=== PATIENT | female | born 1960 | race Caucasian/White ===

== ENCOUNTER → 2017-11-13 15:34 | Outpatient (CLI) | payer BC, SELFPAY ==
[2017-11-13 17:40] LABS: Alanine Aminotransferase 31 IU/L (9-52); Albumin 4.6 g/dL (3.5-5.0); Albumin Globulin Ratio 1.5 (1.0-2.8); Alkaline Phosphatase 40 U/L (38-126); Aspartate Aminotransferase 28 IU/L (14-36); BUN Creatinine Ratio 21.4 (6-22); Bilirubin Total 0.5 mg/dL (0.2-1.3); Blood Urea Nitrogen 15 mg/dL (7-17); Calcium 9.1 mg/dL (8.4-10.2); Carbon Dioxide 26 mmol/L (22-32); Chloride 104 mmol/L (98-107); Cholesterol 228 mg/dL (140-199); Estimated Glomerular Filt Rate > 60.0 mL/min (>60); Globulin 3.1 g/dL (1.7-4.1); Glucose 83 mg/dL (70-100); HDL Cholesterol 46 mg/dL (40-60); LDL Cholesterol Calculated 127 mg/dL (<100); Sodium 140 mmol/L (137-145); Total Protein 7.7 g/dL (6.3-8.2); Triglycerides 274 mg/dL (35-150)
[2017-11-13 17:52] LABS: HEMOLYSIS 53 (0-50); Potassium 4.2 mmol/L (3.4-5.1)
== END ==
PROVIDERS: Family Provider Family Medicine; PCP Family Medicine; Visit Provider Internal Medicine
DX: E78.00 Pure hypercholesterolemia, unspecified (principal); I10 Essential (primary) hypertension
CPT/HCPCS: 36415; 80053; 80061

== ENCOUNTER 2018-04-27 16:45 | Outpatient (RCR) | payer BC, SELFPAY ==
--- NOTE | 2017-12-05 15:21 | PT.OIE ---
Current Diagnoses Other chronic pain (12/05/17) Cervicalgia (12/05/17) Low back pain (12/05/17) Pain in thoracic spine (12/05/17) Abnormal posture (12/05/17) Weakness (12/05/17) Past Medical History (Last Reviewed 12/05/17 @ 15:12 by Michelle Davis, PT) Depression (Chronic) Hypertension (Chronic 2015) Abnormal Pap smear of cervix (Resolved ~1989) 2 para 2 (Resolved) HPV (human papilloma virus) infection (Resolved ~1989) Hemorrhoids (Resolved 1994) Menopause (Resolved 2012) Past Surgical History (Last Updated 11/13/17 @ 09:52 by Yuliet Mijares) Anesthesia (Resolved) Status post colonoscopy (Resolved) Status post tonsillectomy and adenoidectomy (Resolved) Provider Visit Care Team Role Provider Type Maricarmen Ramos DO Family Provider Physician Primary Care Provider Specialty: Family Practice Address: [address] [place] [address] Email: [email or web address] Francisco Davis MD Attending Provider Physician Specialty: Internal Medicine Address: [address] [place] [address], [id number] Email: Physical Therapy Initial Evaluation PT-OP-A Visit Information Start: 12/05/17 08:49 Freq: Status: Active Protocol: Document 12/05/17 09:50 [facility] (Rec: 12/05/17 15:21 [facility] [id number]) Out-Patient Physical Therapy Visit Information Visit Information Visit Type Initial Evaluation Visit Note 50 visits per year Visit Start Time 09:50 Visit Stop Time 10:45 Total Visit Minutes 55 Visit Number 1 Number of DROP HAMMER PILE DRIVER OPERATOR Visits 0 PT-OP-B Current Condition Start: 12/05/17 08:49 Freq: Status: Active Protocol: Document 12/05/17 09:50 [facility] (Rec: 12/05/17 15:21 [facility] [id number]) Current Condition History of Current Condition Onset Date May-June 2017 Current Complaints L upper lumbar through thoracic to neck L>R History of Current Condition Pt c/o mostly L lower thoracic pain that she says starts at L upper lumbar and radiates up to L cervical region, and can be painful on both sides. Reports it is mostly more annoying that painful, except when rolling. Pt reports she hears a clicking in her neck also. She has not tried icing for pain relief. Pt reports she walks daily, but has avoided distance w/walks d/t pain and puts of her daily activities. 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 (Rec: 12/05/17 15:21 [facility] [id number]) Patient Questionnaires Oswestry Low Back Index Oswestry Score 20/50 Oswestry Impairment 40 to 59% Impaired (Score 40- 59) OP-PT Pain Assessment Location Left Back Pain Location Details upper lumbar, Thoracic & cervical L>R Intensity 3 Scale Used Numeric (1 - 10) Description Sharp Description- Other 3/10 constant w/up to 7/10 at times, like when rolling in bed Frequency Constant Pain Aggravating Factors Lifting Other Pain Aggravating Factors twisting, in/out of bed, rolling in bed, in/out car Pain Alleviating Factors Heat Medication PT-OP-F Manual Assessment Start: 12/05/17 08:49 Freq: Status: Active Protocol: Document 12/05/17 09:50 [facility] (Rec: 12/05/17 10:36 [facility] [id number]) Manual Assessments Joint Mobility Assessment Joint Mobility Assessment Equal greater trochanters & iliac crest height. PT-OP-G Mobility & Gait Start: 12/05/17 08:49 Freq: Status: Active Protocol: Document 12/05/17 09:50 [facility] (Rec: 12/05/17 10:36 [facility] [id number]) OP Gait Assessment Comments Gait Comments Dec B hip ext and dec UE arm swing. Overall dec post depression & ant elevation of pelvis. PT-OP-J Posture/Palpation/Skin Start: 12/05/17 08:49 Freq: Status: Active Protocol: Document 12/05/17 09:50 [facility] (Rec: 12/05/17 10:36 [facility] [id number]) Posture Evaluation Agustin Postural Classification System Agustin Postural Classifications Anterior/Posterior Vertebral Compression Test 2 Elbow Flexion Test 0 Lumbar Protective Mechanism Left AP 0 Lumbar Protective Mechanism Right AP 1 Lumbar Protective Mechanism Left PA 0 Lumbar Protective Mechanism Right PA 1 Leg Swing Left Limited Leg Swing Right Limited PT-OP-K Range of Motion Start: 12/05/17 08:49 Freq: Status: Active Protocol: Document 12/05/17 09:50 [facility] (Rec: 12/05/17 10:36 [facility] [id number]) Cervical Spine Range of Motion Cervical Spine Active Degrees Testing Position Sitting Flexion 63 Extension 40 Rotation Left 50 Rotation Right 44 Lateral Flexion Left 22 Lateral Flexion Right 18 Comments pain w/ flex & ipsilateral pain w/SB Lumbar Spine Range of Motion Lumbar Spine Active Degrees Flexion 75 Extension 12 Rotation Left 23 Rotation Right 32 Lateral Flexion Left 20 Lateral Flexion Right 25 Comments pain w/ ext; pain w/ L side bend PT-OP-L Special Tests Start: 12/05/17 08:49 Freq: Status: Active Protocol: Document 12/05/17 09:50 [facility] (Rec: 12/05/17 10:36 [facility] [id number]) Special Tests Cervical Spine Special Tests Vertebral Artery Test Results neg B Spurling's Test Test Results positive Lumbar Spine Special Tests Straight Leg Raise Test Results positive B with pain into L thoracic region Slump Test Results neg B PT-OP-M Strength Start: 12/05/17 08:49 Freq: Status: Active Protocol: Document 12/05/17 09:50 [facility] (Rec: 12/05/17 10:36 [facility] [id number]) Shoulder Strength Shoulder Manual Muscle Testing Right Flexion 5 Normal Extension 5 Normal Abduction (C5) 5 Normal External Rotation 5 Normal Internal Rotation 5 Normal Horizontal Abduction 5 Normal Horizontal Adduction 5 Normal Left Flexion 5 Normal Extension 5 Normal Abduction (C5) 4+ Good+ External Rotation 5 Normal Internal Rotation 5 Normal Horizontal Abduction 4- Good- Horizontal Adduction 4- Good- Comments pain L abd & Hadd & HABD Hip Strength Hip Manual Muscle Testing Right Flexion (L2) 5 Normal Abduction 4+ Good+ External Rotation 5 Normal Internal Rotation 4 Good Comments WNL Knee strength Left Flexion (L2) 4 Good External Rotation 4 Good Internal Rotation 3 Fair PT-OP-Q Treatments Start: 12/05/17 08:49 Freq: Status: Active Protocol: Document 12/05/17 09:50 [facility] (Rec: 12/05/17 10:36 [facility] [id number]) Therapeutic Exercises Supine Exercises 2 Supine Exercise Name Pelvic tilts 1 Supine Exercise Name LTR Side bilateral PT-OP-R Modalities Start: 12/05/17 08:49 Freq: Status: Active Protocol: Document 12/05/17 09:50 [facility] (Rec: 12/05/17 10:36 [facility] [id number]) Hot Pack/Cold Pack Treatment Hot Pack Location lumbar/thoracic & cervical Patient Position Sitting Treatment Duration (minutes) 15 PT-OP-T Assessment and Plan Start: 12/05/17 08:49 Freq: Status: Active Protocol: Document 12/05/17 09:50 [facility] (Rec: 12/05/17 15:21 [facility] [id number]) Physical Therapy Assessment Rehab Potential Rehabilitation Potential Good Evaluation Complexity Number of Personal Factors/Comorbidities 3 or More Number of Body Systems Impaired 4 or More Clinical Presentation at Evaluation Evolving Impairments Impairments Balance Functional Activities Gait Pain Posture ROM Soft Tissue Mobility Strength Goals Four Impairment activities Short Term Goal (STG) Pt will demonstrate good lifting mechanics & will have an ergonomically correct desk set up. STG Duration 01/05/18 Patrol Driver Goal (LTG) Pt will be able to garden, lift and do long walks without pain. LTG Duration 02/04/18 Three Impairment bed mobility Senior Care Goal (LTG) Pt will be able to do all bed mobility without pain LTG Duration 02/04/18 Two Impairment core stability/strength Short Term Goal (STG) Pt will be indep with HEP STG Duration 01/05/18 Senior Care Goal (LTG) 5/5 LE strength, EFT, VCT & LPM to demonstrate improved stability and to allow pt to return to normal activities LTG Duration 02/04/18 One Impairment pain Short Term Goal (STG) Constant pain to 1/10 STG Duration 01/05/18 Patrol Driver Goal (LTG) worst pain to 2/10 LTG Duration 02/04/18 Assessment Summary Assessment Pt presents with pain radiating from upper L lumbar region to L lower cervical region with primary pain in L lower thoracic around T10. Pt has very poor posture & impaired gait & rolling techniques. Physical Therapy Plan Frequency and Duration Frequency of Treatment 2x/Week Duration of Treatment 2 months Plan of Care Start Date 12/05/17 Plan of Care End Date 02/04/18 Therapeutic Interventions Therapeutic Interventions Aquatic Therapy Balance Training Gait Training Home Exercise Program Joint Mobilizations Manual Therapy Soft Tissue Mobilization Taping Therapeutic Exercises Modalities Cold Pack/Ice Massage Electric Stimulation Hot Packs Infrared Therapy Traction- Mechanical Ultrasound Next Visit Focus/Plan Next Note Type Treatment Note Next Visit Plan Supine core exercises, cervical stretches, cat/camel, paresh pose, pec stretch, STM to lower L thoracic
--- NOTE | 2017-12-05 15:21 | PT.OPPOC ---
Current Diagnoses Other chronic pain (12/05/17) Cervicalgia (12/05/17) Low back pain (12/05/17) Pain in thoracic spine (12/05/17) Abnormal posture (12/05/17) Weakness (12/05/17) Provider Visit Care Team Role Provider Type Maricarmen Ramos DO Family Provider Physician Primary Care Provider Specialty: Family Practice Address: [address] [place] [address], [id number] Email: [email or web address] Francisco Davis MD Attending Provider Physician Specialty: Internal Medicine Address: [address] [place] [address], [id number] Email: Plan Of Care PT-OP-T Assessment and Plan Start: 12/05/17 08:49 Freq: Status: Active Protocol: Document 12/05/17 09:50 [facility] (Rec: 12/05/17 15:21 [facility] [id number]) Physical Therapy Assessment Rehab Potential Rehabilitation Potential Good Evaluation Complexity Number of Personal Factors/Comorbidities 3 or More Number of Body Systems Impaired 4 or More Clinical Presentation at Evaluation Evolving Impairments Impairments Balance Functional Activities Gait Pain Posture ROM Soft Tissue Mobility Strength Goals Four Impairment activities Short Term Goal (STG) Pt will demonstrate good lifting mechanics & will have an ergonomically correct desk set up. STG Duration 01/05/18 Test Engine Mechanic Goal (LTG) Pt will be able to garden, lift and do long walks without pain. LTG Duration 02/04/18 Three Impairment bed mobility Longterm Goal (LTG) Pt will be able to do all bed mobility without pain LTG Duration 02/04/18 Two Impairment core stability/strength Short Term Goal (STG) Pt will be indep with HEP STG Duration 01/05/18 Longterm Goal (LTG) 5/5 LE strength, EFT, VCT & LPM to demonstrate improved stability and to allow pt to return to normal activities LTG Duration 02/04/18 One Impairment pain Short Term Goal (STG) Constant pain to 1/10 STG Duration 01/05/18 Longterm Goal (LTG) worst pain to 2/10 LTG Duration 02/04/18 Assessment Summary Assessment Pt presents with pain radiating from upper L lumbar region to L lower cervical region with primary pain in L lower thoracic around T10. Pt has very poor posture & impaired gait & rolling techniques. Physical Therapy Plan Frequency and Duration Frequency of Treatment 2x/Week Duration of Treatment 2 months Plan of Care Start Date 12/05/17 Plan of Care End Date 02/04/18 Therapeutic Interventions Therapeutic Interventions Aquatic Therapy Balance Training Gait Training Home Exercise Program Joint Mobilizations Manual Therapy Soft Tissue Mobilization Taping Therapeutic Exercises Modalities Cold Pack/Ice Massage Electric Stimulation Hot Packs Infrared Therapy Traction- Mechanical Ultrasound Next Visit Focus/Plan Next Note Type Treatment Note Next Visit Plan Supine core exercises, cervical stretches, cat/camel, paresh pose, pec stretch, STM to lower L thoracic Plan of Care Dates Plan of Care Start Date 12/05/17 Plan of Care End Date 02/04/18 Please Sign and Return: I have reviewed this Plan of Care and certify that the skilled therapy services above are required to meet the patient?s needs. Physician Signature Date Printed Name and Credentials Clinical Instructor Signature Printed Name and Credentials
--- NOTE | 2017-12-09 11:27 | PT.OTN ---
Current Diagnoses Other chronic pain (12/09/17) Pain in thoracic spine (12/09/17) Physical Therapy Treatment Note PT-OP-A Visit Information Start: 12/05/17 08:49 Freq: Status: Active Protocol: Document 12/09/17 11:27 [facility] (Rec: 12/09/17 11:36 [facility] [id number]) Out-Patient Physical Therapy Visit Information Visit Information Visit Type Treatment Note Visit Start Time 10:31 Visit Stop Time 11:27 Total Visit Minutes 58 Visit Number 2 Number of PIECE WORK CHECKER Visits 0 Evaluation Information Evaluation Date 12/05/17 PT-OP-B Current Condition Start: 12/05/17 08:49 Freq: Status: Active Protocol: Document 12/05/17 09:50 [facility] (Rec: 12/05/17 15:21 [facility] [id number]) Current Condition History of Current Condition Onset Date May-June 2017 Current Complaints L upper lumbar through thoracic to neck L>R History of Current Condition Pt c/o mostly L lower thoracic pain that she says starts at L upper lumbar and radiates up to L cervical region, and can be painful on both sides. Reports it is mostly more annoying that painful, except when rolling. Pt reports she hears a clicking in her neck also. She has not tried icing for pain relief. Pt reports she walks daily, but has avoided distance w/walks d/t pain and puts of her daily activities. 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 She does feel that they are getting the right spot because they do tend to make her back a bit more sore. Still having a hard time sleeping/rolling in bed. OP-PT Pain Assessment Location Left Back Pain Location Details upper lumbar, Thoracic & cervical L>R Intensity 3 Scale Used Numeric (1 - 10) Description Sharp Frequency Constant PT-OP-Q Treatments Start: 12/05/17 08:49 Freq: Status: Active Protocol: Document 12/09/17 11:27 [facility] (Rec: 12/09/17 11:36 [facility] [email or web address]) Cardio Equipment Recumbent Stepper (Sci-Fit) Duration (Minutes) 5 Resistance 4 Therapeutic Exercises Supine Exercises 2 Supine Exercise Name Pelvic tilts Reps/Minutes 5 minutes Comments emphasis on isolating pelvic movement from shoulders PT-OP-R Modalities Start: 12/05/17 08:49 Freq: Status: Active Protocol: Document 12/09/17 12:45 [facility] (Rec: 12/09/17 12:45 [facility] [email or web address]) Hot Pack/Cold Pack Treatment Hot Pack Location low back Patient Position Hooklying Treatment Duration (minutes) 10 Patient Tolerance Good Comments Pt reports decreased pain overall at end of session, but does not supply a number. PT-OP-T Assessment and Plan Start: 12/05/17 08:49 Freq: Status: Active Protocol: Document 12/09/17 11:27 [facility] (Rec: 12/09/17 12:45 [facility] [email or web address]) Physical Therapy Assessment Progress Towards Goals Progress Towards Goals Progressing Toward Goals Progress Comments Pt is very motivated to participate in therapy. Has been compliant with her HEP. No change in pain symptoms yet . Assessment Summary Assessment Demonstrates impaired lumbosacral coordination/ movement with increased activation of lumbar paraspinals. Pt had significant difficulty correctly isolating TrA today and tended to perform posterior pelvic tilt by activating superficial abdominals - bringing shoulders off table. Physical Therapy Plan Frequency and Duration Frequency of Treatment 2x/Week Duration of Treatment 2 months Plan of Care Start Date 12/05/17 Plan of Care End Date 02/04/18 Next Visit Focus/Plan Next Note Type Treatment Note Next Visit Plan Continue TrA education/ practice, log rolls. Trial STM to lower L thoracic. Cervical stretches and pec stretches.
--- NOTE | 2017-12-12 10:32 | PT.OTN ---
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 Reports it is mostly more annoying that painful, except when rolling. Pt reports she hears a clicking in her neck also. She has not tried icing for pain relief. Pt reports she walks daily, but has avoided distance w/walks d/t pain and puts of her daily activities. 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 Consistent with exercises. PT-OP-F Manual Assessment Start: 12/05/17 08:49 Freq: Status: Active Protocol: Document 12/05/17 09:50 [facility] (Rec: 12/05/17 10:36 [facility] [id number]) Manual Assessments Joint Mobility Assessment Joint Mobility Assessment Equal greater trochanters & iliac crest height. PT-OP-G Mobility & Gait Start: 12/05/17 08:49 Freq: Status: Active Protocol: Document 12/05/17 09:50 [facility] (Rec: 12/05/17 10:36 [facility] [id number]) OP Gait Assessment Comments Gait Comments Dec B hip ext and dec UE arm swing. Overall dec post depression & ant elevation of pelvis. PT-OP-J Posture/Palpation/Skin Start: 12/05/17 08:49 Freq: Status: Active Protocol: Document 12/05/17 09:50 [facility] (Rec: 12/05/17 10:36 [facility] [id number]) Posture Evaluation Agustin Postural Classification System Agustin Postural Classifications Anterior/Posterior Vertebral Compression Test 2 Elbow Flexion Test 0 Lumbar Protective Mechanism Left AP 0 Lumbar Protective Mechanism Right AP 1 Lumbar Protective Mechanism Left PA 0 Lumbar Protective Mechanism Right PA 1 Leg Swing Left Limited Leg Swing Right Limited PT-OP-K Range of Motion Start: 12/05/17 08:49 Freq: Status: Active Protocol: Document 12/05/17 09:50 [facility] (Rec: 12/05/17 10:36 [facility] [id number]) Cervical Spine Range of Motion Cervical Spine Active Degrees Testing Position Sitting Flexion 63 Extension 40 Rotation Left 50 Rotation Right 44 Lateral Flexion Left 22 Lateral Flexion Right 18 Comments pain w/ flex & ipsilateral pain w/SB Lumbar Spine Range of Motion Lumbar Spine Active Degrees Flexion 75 Extension 12 Rotation Left 23 Rotation Right 32 Lateral Flexion Left 20 Lateral Flexion Right 25 Comments pain w/ ext; pain w/ L side bend PT-OP-L Special Tests Start: 12/05/17 08:49 Freq: Status: Active Protocol: Document 12/05/17 09:50 [facility] (Rec: 12/05/17 10:36 [facility] [id number]) Special Tests Cervical Spine Special Tests Vertebral Artery Test Results neg B Spurling's Test Test Results positive Lumbar Spine Special Tests Straight Leg Raise Test Results positive B with pain into L thoracic region Slump Test Results neg B PT-OP-M Strength Start: 12/05/17 08:49 Freq: Status: Active Protocol: Document 12/05/17 09:50 [facility] (Rec: 12/05/17 10:36 [facility] [id number]) Shoulder Strength Shoulder Manual Muscle Testing Right Flexion 5 Normal Extension 5 Normal Abduction (C5) 5 Normal External Rotation 5 Normal Internal Rotation 5 Normal Horizontal Abduction 5 Normal Horizontal Adduction 5 Normal Left Flexion 5 Normal Extension 5 Normal Abduction (C5) 4+ Good+ External Rotation 5 Normal Internal Rotation 5 Normal Horizontal Abduction 4- Good- Horizontal Adduction 4- Good- Comments pain L abd & Hadd & HABD Hip Strength Hip Manual Muscle Testing Right Flexion (L2) 5 Normal Abduction 4+ Good+ External Rotation 5 Normal Internal Rotation 4 Good Comments WNL Knee strength Left Flexion (L2) 4 Good External Rotation 4 Good Internal Rotation 3 Fair PT-OP-Q Treatments Start: 12/05/17 08:49 Freq: Status: Active Protocol: Document 12/12/17 09:35 [facility] (Rec: 12/12/17 10:32 [facility] [id number]) Cardio Equipment Recumbent Stepper (Sci-Fit) Duration (Minutes) 5 Resistance 4 Therapeutic Exercises Supine Exercises 2 Supine Exercise Name Pelvic tilts Reps/Minutes 5 minutes Comments emphasis on isolating pelvic movement from shoulders 1 Supine Exercise Name LTR Side bilateral Comments cues to not push into pain, limit motion to painfree Sidelying Exercises 1 Sidelying Exercise Name Thoracic rotation Reps/Minutes 8 Sitting Exercises 1 Sitting Exercise Name LS, UT, scalene stretches Reps/Minutes 30 sec holds Standing Exercises 1 Standing Exercise Name pec stretch corner Reps/Minutes 30 sec Other Exercises 2 Other Exercise Name paresh pose straight and to R Reps/Minutes 5 x 10 second holds 1 Other Exercise Name cat and camel Reps/Minutes 10 Comments focus on pelvic/lumbar movement Therapeutic Activity Therapeutic Activity 1 Name log rolling Manual Therapy Treatment Soft Tissue Mobilization 1 Body Location TL paraspinals B Mobilization Type Rolling PT-OP-R Modalities Start: 12/05/17 08:49 Freq: Status: Active Protocol: Document 12/12/17 09:35 [facility] (Rec: 12/12/17 10:32 [facility] [id number]) Hot Pack/Cold Pack Treatment Hot Pack Location lumbar/thoracic & cervical Patient Position Sitting Treatment Duration (minutes) 15 PT-OP-T Assessment and Plan Start: 12/05/17 08:49 Freq: Status: Active Protocol: Document 12/12/17 09:35 [facility] (Rec: 12/12/17 10:32 [facility] [id number]) Physical Therapy Assessment Goals Four Impairment activities Short Term Goal (STG) Pt will demonstrate good lifting mechanics & will have an ergonomically correct desk set up. STG Duration 01/05/18 Cake Cutter Machine Goal (LTG) Pt will be able to garden, lift and do long walks without pain. LTG Duration 02/04/18 Three Impairment bed mobility Cake Cutter Machine Goal (LTG) Pt will be able to do all bed mobility without pain LTG Duration 02/04/18 Two Impairment core stability/strength Short Term Goal (STG) Pt will be indep with HEP STG Duration 01/05/18 Longterm Goal (LTG) 5/5 LE strength, EFT, VCT & LPM to demonstrate improved stability and to allow pt to return to normal activities LTG Duration 02/04/18 One Impairment pain Short Term Goal (STG) Constant pain to 1/10 STG Duration 01/05/18 Longterm Goal (LTG) worst pain to 2/10 LTG Duration 02/04/18 Assessment Summary Assessment Pt reports relief w/STM. Improved form with log roll today, but cueing required throughout Physical Therapy Plan Frequency and Duration Frequency of Treatment 2x/Week Duration of Treatment 2 months Plan of Care Start Date 12/05/17 Plan of Care End Date 02/04/18 Next Visit Focus/Plan Next Note Type Treatment Note Next Visit Plan roll and reach & progress with core activation
--- NOTE | 2017-12-16 11:30 | PT.OTN ---
Current Diagnoses Other chronic pain (12/16/17) Pain in thoracic spine (12/16/17) Physical Therapy Treatment Note PT-OP-A Visit Information Start: 12/05/17 08:49 Freq: Status: Active Protocol: Document 12/16/17 11:30 [facility] (Rec: 12/16/17 13:00 [facility] [email or web address]) Out-Patient Physical Therapy Visit Information Visit Information Visit Type Treatment Note Visit Start Time 10:35 Visit Stop Time 11:30 Total Visit Minutes 55 Visit Number 4 Number of ORNAMENTAL METALWORK DESIGNER Visits 0 Evaluation Information Evaluation Date 12/05/17 PT-OP-B Current Condition Start: 12/05/17 08:49 Freq: Status: Active Protocol: Document 12/05/17 09:50 [facility] (Rec: 12/05/17 15:21 [facility] [email or web address]) Current Condition History of Current Condition Onset Date June 2017 Current Complaints L upper lumbar through thoracic to neck L>R History of Current Condition Pt c/o mostly L lower thoracic pain that she says starts at L upper lumbar and radiates up to L cervical region, and can be painful on both sides. Reports it is mostly more annoying that painful, except when rolling. Pt reports she hears a clicking in her neck also. She has not tried icing for pain relief. Pt reports she walks daily, but has avoided distance w/walks d/t pain and puts of her daily activities. 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 Manual therapy felt very relieving during. OP-PT Pain Assessment Location Left Back Pain Location Details upper lumbar, Thoracic & cervical L>R Intensity 4 Scale Used Numeric (1 - 10) Frequency Constant PT-OP-F Manual Assessment Start: 12/05/17 08:49 Freq: Status: Active Protocol: Document 12/05/17 09:50 [facility] (Rec: 12/05/17 10:36 [facility] [id number]) Manual Assessments Joint Mobility Assessment Joint Mobility Assessment Equal greater trochanters & iliac crest height. PT-OP-G Mobility & Gait Start: 12/05/17 08:49 Freq: Status: Active Protocol: Document 12/05/17 09:50 [facility] (Rec: 12/05/17 10:36 [facility] [id number]) OP Gait Assessment Comments Gait Comments Dec B hip ext and dec UE arm swing. Overall dec post depression & ant elevation of pelvis. PT-OP-J Posture/Palpation/Skin Start: 12/05/17 08:49 Freq: Status: Active Protocol: Document 12/05/17 09:50 [facility] (Rec: 12/05/17 10:36 [facility] [id number]) Posture Evaluation Agustin Postural Classification System [facility] Postural Classifications Anterior/Posterior Vertebral Compression Test 2 Elbow Flexion Test 0 Lumbar Protective Mechanism Left AP 0 Lumbar Protective Mechanism Right AP 1 Lumbar Protective Mechanism Left PA 0 Lumbar Protective Mechanism Right PA 1 Leg Swing Left Limited Leg Swing Right Limited PT-OP-K Range of Motion Start: 12/05/17 08:49 Freq: Status: Active Protocol: Document 12/05/17 09:50 [facility] (Rec: 12/05/17 10:36 [facility] [id number]) Cervical Spine Range of Motion Cervical Spine Active Degrees Testing Position Sitting Flexion 63 Extension 40 Rotation Left 50 Rotation Right 44 Lateral Flexion Left 22 Lateral Flexion Right 18 Comments pain w/ flex & ipsilateral pain w/SB Lumbar Spine Range of Motion Lumbar Spine Active Degrees Flexion 75 Extension 12 Rotation Left 23 Rotation Right 32 Lateral Flexion Left 20 Lateral Flexion Right 25 Comments pain w/ ext; pain w/ L side bend PT-OP-L Special Tests Start: 12/05/17 08:49 Freq: Status: Active Protocol: Document 12/05/17 09:50 [facility] (Rec: 12/05/17 10:36 [facility] [id number]) Special Tests Cervical Spine Special Tests Vertebral Artery Test Results neg B Spurling's Test Test Results positive Lumbar Spine Special Tests Straight Leg Raise Test Results positive B with pain into L thoracic region Slump Test Results neg B PT-OP-M Strength Start: 12/05/17 08:49 Freq: Status: Active Protocol: Document 12/05/17 09:50 [facility] (Rec: 12/05/17 10:36 [facility] [id number]) Shoulder Strength Shoulder Manual Muscle Testing Right Flexion 5 Normal Extension 5 Normal Abduction (C5) 5 Normal External Rotation 5 Normal Internal Rotation 5 Normal Horizontal Abduction 5 Normal Horizontal Adduction 5 Normal Left Flexion 5 Normal Extension 5 Normal Abduction (C5) 4+ Good+ External Rotation 5 Normal Internal Rotation 5 Normal Horizontal Abduction 4- Good- Horizontal Adduction 4- Good- Comments pain L abd & Hadd & HABD Hip Strength Hip Manual Muscle Testing Right Flexion (L2) 5 Normal Abduction 4+ Good+ External Rotation 5 Normal Internal Rotation 4 Good Comments WNL Knee strength Left Flexion (L2) 4 Good External Rotation 4 Good Internal Rotation 3 Fair PT-OP-Q Treatments Start: 12/05/17 08:49 Freq: Status: Active Protocol: Document 12/16/17 11:30 [facility] (Rec: 12/16/17 13:00 [facility] [email or web address]) Cardio Equipment Recumbent Stepper (Sci-Fit) Duration (Minutes) 5 Resistance 4 Therapeutic Exercises Supine Exercises 2 Supine Exercise Name Pelvic tilts Reps/Minutes 5 minutes Comments emphasis on isolating pelvic movement from shoulders Sidelying Exercises 1 Sidelying Exercise Name Thoracic rotation Reps/Minutes 8 Sitting Exercises 1 Sitting Exercise Name LS, UT, scalene stretches Reps/Minutes 30 sec holds Other Exercises 4 Other Exercise Name scapular retraction and TrA sitting on congolese ball Reps/Minutes 10 Comments Pt with difficulty correctly activating lower traps 3 Other Exercise Name Pelvic tilts on congolese ball Equipment Used 65 cm congolese ball Reps/Minutes 10 reps each Comments ant/posterior and side to side 2 Other Exercise Name paresh pose straight and to R Reps/Minutes 5 x 10 second holds 1 Other Exercise Name cat and camel Reps/Minutes 10 Comments focus on pelvic/lumbar movement Therapeutic Activity Therapeutic Activity 1 Name log rolling, reach and roll Comments 2 repetitions, focus on breathing and core activation Manual Therapy Treatment Soft Tissue Mobilization 1 Body Location TL paraspinals L>R Mobilization Type Myofascial Release Rolling Strumming Intensity/Depth Superficial Body Position Prone PT-OP-R Modalities Start: 12/05/17 08:49 Freq: Status: Active Protocol: Document 12/16/17 11:30 [facility] (Rec: 08/28/18 16:21 [facility] [email or web address]) Hot Pack/Cold Pack Treatment Cold Pack Location lumbar spine Patient Position Prone Treatment Duration (minutes) 10 Patient Tolerance Good Comments Trial of ice today to counteract day after soreness from STM PT-OP-T Assessment and Plan Start: 12/05/17 08:49 Freq: Status: Active Protocol: Document 12/16/17 11:30 [facility] (Rec: 12/16/17 16:21 [facility] [email or web address]) Physical Therapy Assessment Progress Towards Goals Progress Towards Goals Progressing Toward Goals Progress Comments Pt reports less sharp pain with movement and now feels that her exercises help relieve pain rather than aggravate it. Assessment Summary Assessment Pt again reports relief with STM. Improving with log roll, still requires cueing. Had difficulty activating lower traps correctly with scapular retraction. Physical Therapy Plan Frequency and Duration Frequency of Treatment 2x/Week Duration of Treatment 2 months Plan of Care Start Date 12/05/17 Plan of Care End Date 02/04/18 Next Visit Focus/Plan Next Note Type Treatment Note Next Visit Plan continue with core progression and log roll practice. Reassess pt response to STM day after treatment.
--- NOTE | 2017-12-19 14:47 | PT.OTN ---
Current Diagnoses Other chronic pain (12/19/17) Pain in thoracic spine (12/19/17) Physical Therapy Treatment Note PT-OP-A Visit Information Start: 12/05/17 08:49 Freq: Status: Active Protocol: Document 12/19/17 13:51 [facility] (Rec: 12/19/17 14:47 [facility] [id number]) Out-Patient Physical Therapy Visit Information Visit Information Visit Type Treatment Note Visit Note pt late Visit Start Time 13:50 Visit Stop Time 14:45 Total Visit Minutes 55 Visit Number 5 Number of FILLING SEPARATOR Visits 0 PT-OP-B Current Condition Start: 12/05/17 08:49 Freq: Status: Active Protocol: Document 12/05/17 09:50 [facility] (Rec: 12/05/17 15:21 [facility] [id number]) Current Condition History of Current Condition Onset Date May-June 2017 Current Complaints L upper lumbar through thoracic to neck L>R History of Current Condition Pt c/o mostly L lower thoracic pain that she says starts at L upper lumbar and radiates up to L cervical region, and can be painful on both sides. Reports it is mostly more annoying that painful, except when rolling. Pt reports she hears a clicking in her neck also. She has not tried icing for pain relief. Pt reports she walks daily, but has avoided distance w/walks d/t pain and puts of her daily activities. 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 Pt reports she bought a massage chair that has balls that roll up/down her back. Reports her exercises feel good at home and do not make her more sore. No difference with ice PT-OP-F Manual Assessment Start: 12/05/17 08:49 Freq: Status: Active Protocol: Document 12/05/17 09:50 [facility] (Rec: 12/05/17 10:36 [facility] [id number]) Manual Assessments Joint Mobility Assessment Joint Mobility Assessment Equal greater trochanters & iliac crest height. PT-OP-G Mobility & Gait Start: 12/05/17 08:49 Freq: Status: Active Protocol: Document 12/05/17 09:50 [facility] (Rec: 12/05/17 10:36 [facility] [id number]) OP Gait Assessment Comments Gait Comments Dec B hip ext and dec UE arm swing. Overall dec post depression & ant elevation of pelvis. PT-OP-J Posture/Palpation/Skin Start: 12/05/17 08:49 Freq: Status: Active Protocol: Document 12/05/17 09:50 [facility] (Rec: 12/05/17 10:36 [facility] [id number]) Posture Evaluation Agustin Postural Classification System Agustin Postural Classifications Anterior/Posterior Vertebral Compression Test 2 Elbow Flexion Test 0 Lumbar Protective Mechanism Left AP 0 Lumbar Protective Mechanism Right AP 1 Lumbar Protective Mechanism Left PA 0 Lumbar Protective Mechanism Right PA 1 Leg Swing Left Limited Leg Swing Right Limited PT-OP-K Range of Motion Start: 12/05/17 08:49 Freq: Status: Active Protocol: Document 12/05/17 09:50 [facility] (Rec: 12/05/17 10:36 [facility] [id number]) Cervical Spine Range of Motion Cervical Spine Active Degrees Testing Position Sitting Flexion 63 Extension 40 Rotation Left 50 Rotation Right 44 Lateral Flexion Left 22 Lateral Flexion Right 18 Comments pain w/ flex & ipsilateral pain w/SB Lumbar Spine Range of Motion Lumbar Spine Active Degrees Flexion 75 Extension 12 Rotation Left 23 Rotation Right 32 Lateral Flexion Left 20 Lateral Flexion Right 25 Comments pain w/ ext; pain w/ L side bend PT-OP-L Special Tests Start: 12/05/17 08:49 Freq: Status: Active Protocol: Document 12/05/17 09:50 [facility] (Rec: 12/05/17 10:36 [facility] [id number]) Special Tests Cervical Spine Special Tests Vertebral Artery Test Results neg B Spurling's Test Test Results positive Lumbar Spine Special Tests Straight Leg Raise Test Results positive B with pain into L thoracic region Slump Test Results neg B PT-OP-M Strength Start: 12/05/17 08:49 Freq: Status: Active Protocol: Document 12/05/17 09:50 [facility] (Rec: 12/05/17 10:36 [facility] [id number]) Shoulder Strength Shoulder Manual Muscle Testing Right Flexion 5 Normal Extension 5 Normal Abduction (C5) 5 Normal External Rotation 5 Normal Internal Rotation 5 Normal Horizontal Abduction 5 Normal Horizontal Adduction 5 Normal Left Flexion 5 Normal Extension 5 Normal Abduction (C5) 4+ Good+ External Rotation 5 Normal Internal Rotation 5 Normal Horizontal Abduction 4- Good- Horizontal Adduction 4- Good- Comments pain L abd & Hadd & HABD Hip Strength Hip Manual Muscle Testing Right Flexion (L2) 5 Normal Abduction 4+ Good+ External Rotation 5 Normal Internal Rotation 4 Good Comments WNL Knee strength Left Flexion (L2) 4 Good External Rotation 4 Good Internal Rotation 3 Fair PT-OP-Q Treatments Start: 12/05/17 08:49 Freq: Status: Active Protocol: Document 12/19/17 13:51 [facility] (Rec: 12/19/17 14:47 [facility] [id number]) Cardio Equipment Recumbent Elliptical (Shoutly) Duration (Minutes) 5 Resistance 4 Therapeutic Exercises Sidelying Exercises 1 Sidelying Exercise Name Thoracic rotation Reps/Minutes 8 Other Exercises 4 Other Exercise Name scapular retraction and TrA sitting on zambian ball Reps/Minutes 10 Comments Pt with difficulty correctly activating lower traps 3 Other Exercise Name Pelvic tilts on zambian ball Equipment Used 65 cm zambian ball Reps/Minutes 10 reps each Comments ant/posterior and side to side Manual Therapy Treatment Soft Tissue Mobilization 2 Body Location UT, LS & scalenes Mobilization Type Rolling Intensity/Depth Superficial Joint Mobilizations 2 Joint UPA R T5-6 Direction w/deep breathing 1 Joint 1st rib R Direction caudal PT-OP-R Modalities Start: 12/05/17 08:49 Freq: Status: Active Protocol: Document 12/19/17 13:51 [facility] (Rec: 12/19/17 14:47 [facility] [id number]) Hot Pack/Cold Pack Treatment Cold Pack Location thoracic & cervical Patient Position Prone Treatment Duration (minutes) 10 Patient Tolerance Good PT-OP-T Assessment and Plan Start: 12/05/17 08:49 Freq: Status: Active Protocol: Document 12/19/17 13:51 [facility] (Rec: 12/19/17 14:47 [facility] [id number]) Physical Therapy Assessment Goals Four Impairment activities Short Term Goal (STG) Pt will demonstrate good lifting mechanics & will have an ergonomically correct desk set up. STG Duration 01/05/18 Skilled Nursing Goal (LTG) Pt will be able to garden, lift and do long walks without pain. LTG Duration 02/04/18 Three Impairment bed mobility Skilled Nursing Goal (LTG) Pt will be able to do all bed mobility without pain LTG Duration 02/04/18 Two Impairment core stability/strength Short Term Goal (STG) Pt will be indep with HEP STG Duration 01/05/18 Customer Care Representative Goal (LTG) 5/5 LE strength, EFT, VCT & LPM to demonstrate improved stability and to allow pt to return to normal activities LTG Duration 02/04/18 One Impairment pain Short Term Goal (STG) Constant pain to 1/10 STG Duration 01/05/18 Customer Care Representative Goal (LTG) worst pain to 2/10 LTG Duration 02/04/18 Assessment Summary Assessment Pt reports STM feels okay during rx and no inc pain with exercises. Pt had improved scapular depression on L side with cueing but difficulty on R. Physical Therapy Plan Frequency and Duration Frequency of Treatment 2x/Week Duration of Treatment 2 months Plan of Care Start Date 12/05/17 Plan of Care End Date 02/04/18 Next Visit Focus/Plan Next Note Type Treatment Note Next Visit Plan cont to progress core stability & mobility through ribcage & thoracic region
--- NOTE | 2017-12-23 12:50 | PT.OTN ---
Current Diagnoses Other chronic pain (12/23/17) Pain in thoracic spine (12/23/17) Physical Therapy Treatment Note PT-OP-A Visit Information Start: 12/05/17 08:49 Freq: Status: Active Protocol: Document 12/23/17 12:50 [facility] (Rec: 12/23/17 16:53 [facility] [id number]) Out-Patient Physical Therapy Visit Information Visit Information Visit Type Treatment Note Visit Start Time 12:08 Visit Stop Time 13:00 Total Visit Minutes 52 Visit Number 6 Number of CHUCK TENDER Visits 0 Evaluation Information Evaluation Date 12/05/17 PT-OP-B Current Condition Start: 12/05/17 08:49 Freq: Status: Active Protocol: Document 12/05/17 09:50 [facility] (Rec: 12/05/17 15:21 [facility] [id number]) Current Condition History of Current Condition Onset Date June 2017 Current Complaints L upper lumbar through thoracic to neck L>R History of Current Condition Pt c/o mostly L lower thoracic pain that she says starts at L upper lumbar and radiates up to L cervical region, and can be painful on both sides. Reports it is mostly more annoying that painful, except when rolling. Pt reports she hears a clicking in her neck also. She has not tried icing for pain relief. Pt reports she walks daily, but has avoided distance w/walks d/t pain and puts of her daily activities. 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 Continues to report same level of low back pain. PT-OP-F Manual Assessment Start: 12/05/17 08:49 Freq: Status: Active Protocol: Document 12/05/17 09:50 [facility] (Rec: 12/05/17 10:36 [facility] [id number]) Manual Assessments Joint Mobility Assessment Joint Mobility Assessment Equal greater trochanters & iliac crest height. PT-OP-G Mobility & Gait Start: 12/05/17 08:49 Freq: Status: Active Protocol: Document 12/05/17 09:50 [facility] (Rec: 12/05/17 10:36 [facility] [id number]) OP Gait Assessment Comments Gait Comments Dec B hip ext and dec UE arm swing. Overall dec post depression & ant elevation of pelvis. PT-OP-J Posture/Palpation/Skin Start: 12/05/17 08:49 Freq: Status: Active Protocol: Document 12/05/17 09:50 [facility] (Rec: 12/05/17 10:36 [facility] [id number]) Posture Evaluation Agustin Postural Classification System Agustin Postural Classifications Anterior/Posterior Vertebral Compression Test 2 Elbow Flexion Test 0 Lumbar Protective Mechanism Left AP 0 Lumbar Protective Mechanism Right AP 1 Lumbar Protective Mechanism Left PA 0 Lumbar Protective Mechanism Right PA 1 Leg Swing Left Limited Leg Swing Right Limited PT-OP-K Range of Motion Start: 12/05/17 08:49 Freq: Status: Active Protocol: Document 12/05/17 09:50 [facility] (Rec: 12/05/17 10:36 [facility] [id number]) Cervical Spine Range of Motion Cervical Spine Active Degrees Testing Position Sitting Flexion 63 Extension 40 Rotation Left 50 Rotation Right 44 Lateral Flexion Left 22 Lateral Flexion Right 18 Comments pain w/ flex & ipsilateral pain w/SB Lumbar Spine Range of Motion Lumbar Spine Active Degrees Flexion 75 Extension 12 Rotation Left 23 Rotation Right 32 Lateral Flexion Left 20 Lateral Flexion Right 25 Comments pain w/ ext; pain w/ L side bend PT-OP-L Special Tests Start: 12/05/17 08:49 Freq: Status: Active Protocol: Document 12/05/17 09:50 [facility] (Rec: 12/05/17 10:36 [facility] [id number]) Special Tests Cervical Spine Special Tests Vertebral Artery Test Results neg B Spurling's Test Test Results positive Lumbar Spine Special Tests Straight Leg Raise Test Results positive B with pain into L thoracic region Slump Test Results neg B PT-OP-M Strength Start: 12/05/17 08:49 Freq: Status: Active Protocol: Document 12/05/17 09:50 [facility] (Rec: 12/05/17 10:36 [facility] [id number]) Shoulder Strength Shoulder Manual Muscle Testing Right Flexion 5 Normal Extension 5 Normal Abduction (C5) 5 Normal External Rotation 5 Normal Internal Rotation 5 Normal Horizontal Abduction 5 Normal Horizontal Adduction 5 Normal Left Flexion 5 Normal Extension 5 Normal Abduction (C5) 4+ Good+ External Rotation 5 Normal Internal Rotation 5 Normal Horizontal Abduction 4- Good- Horizontal Adduction 4- Good- Comments pain L abd & Hadd & HABD Hip Strength Hip Manual Muscle Testing Right Flexion (L2) 5 Normal Abduction 4+ Good+ External Rotation 5 Normal Internal Rotation 4 Good Comments WNL Knee strength Left Flexion (L2) 4 Good External Rotation 4 Good Internal Rotation 3 Fair PT-OP-Q Treatments Start: 12/05/17 08:49 Freq: Status: Active Protocol: Document 12/23/17 12:50 [facility] (Rec: 12/23/17 16:53 [facility] [id number]) Cardio Equipment Recumbent Elliptical ([employer]) Duration (Minutes) 5 Resistance 4 Therapeutic Exercises Supine Exercises 3 Supine Exercise Name supine TrA with bent knee fallout Side bilateral Reps/Minutes 10 Comments Focus on maintaining pelvic stability with BKFO 2 Supine Exercise Name Pelvic tilts - progressed to bridges Reps/Minutes 15 with 5 second holds Comments emphasis on isolating pelvic movement from shoulders Sidelying Exercises 1 Sidelying Exercise Name Thoracic rotation Reps/Minutes 8 Other Exercises 1 Other Exercise Name cat and camel Reps/Minutes 10 Comments focus on pelvic/lumbar movement Manual Therapy Treatment Soft Tissue Mobilization 1 Body Location TL paraspinals L>R Mobilization Type Myofascial Release Rolling Strumming Intensity/Depth Superficial Body Position Prone PT-OP-R Modalities Start: 12/05/17 08:49 Freq: Status: Active Protocol: Document 12/23/17 12:50 [facility] (Rec: 12/23/17 16:53 [facility] [id number]) Hot Pack/Cold Pack Treatment Cold Pack Location lumbar spine Patient Position Prone Treatment Duration (minutes) 10 Patient Tolerance Good PT-OP-T Assessment and Plan Start: 12/05/17 08:49 Freq: Status: Active Protocol: Document 12/23/17 12:50 [facility] (Rec: 12/23/17 16:53 [facility] [id number]) Physical Therapy Assessment Progress Towards Goals Progress Towards Goals Progressing Toward Goals Assessment Summary Assessment Pt reports same level of back pain overall, but demonstrates improved ease of movement - veto with bed mobility. Physical Therapy Plan Frequency and Duration Frequency of Treatment 2x/Week Duration of Treatment 2 months Plan of Care Start Date 12/05/17 Plan of Care End Date 02/04/18 Next Visit Focus/Plan Next Note Type Treatment Note Next Visit Plan cont to progress core stability & mobility through ribcage & thoracic region
--- NOTE | 2018-01-15 17:03 | PT.OTN ---
Current Diagnoses Other chronic pain (01/15/18) Pain in thoracic spine (01/15/18) Physical Therapy Treatment Note PT-OP-A Visit Information Start: 12/05/17 08:49 Freq: Status: Active Protocol: Document 01/15/18 13:03 [facility] (Rec: 01/15/18 13:49 [facility] [id number]) Out-Patient Physical Therapy Visit Information Visit Information Visit Type Treatment Note Visit Start Time 13:00 Visit Stop Time 13:55 Total Visit Minutes 55 Visit Number 7 Number of GEAR MACHINE OPERATOR Visits 0 PT-OP-B Current Condition Start: 12/05/17 08:49 Freq: Status: Active Protocol: Document 12/05/17 09:50 [facility] (Rec: 12/05/17 15:21 [facility] [id number]) Current Condition History of Current Condition Onset Date May-June 2017 Current Complaints L upper lumbar through thoracic to neck L>R History of Current Condition Pt c/o mostly L lower thoracic pain that she says starts at L upper lumbar and radiates up to L cervical region, and can be painful on both sides. Reports it is mostly more annoying that painful, except when rolling. Pt reports she hears a clicking in her neck also. She has not tried icing for pain relief. Pt reports she walks daily, but has avoided distance w/walks d/t pain and puts of her daily activities. 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 Reports less sharp high level pains. Cont compliance w/HEP Patient Reported Progress Improving PT-OP-F Manual Assessment Start: 12/05/17 08:49 Freq: Status: Active Protocol: Document 12/05/17 09:50 [facility] (Rec: 12/05/17 10:36 [facility] [id number]) Manual Assessments Joint Mobility Assessment Joint Mobility Assessment Equal greater trochanters & iliac crest height. PT-OP-G Mobility & Gait Start: 12/05/17 08:49 Freq: Status: Active Protocol: Document 12/05/17 09:50 [facility] (Rec: 12/05/17 10:36 [facility] [id number]) OP Gait Assessment Comments Gait Comments Dec B hip ext and dec UE arm swing. Overall dec post depression & ant elevation of pelvis. PT-OP-J Posture/Palpation/Skin Start: 12/05/17 08:49 Freq: Status: Active Protocol: Document 12/05/17 09:50 [facility] (Rec: 12/05/17 10:36 [facility] [id number]) Posture Evaluation Agustin Postural Classification System Agustin Postural Classifications Anterior/Posterior Vertebral Compression Test 2 Elbow Flexion Test 0 Lumbar Protective Mechanism Left AP 0 Lumbar Protective Mechanism Right AP 1 Lumbar Protective Mechanism Left PA 0 Lumbar Protective Mechanism Right PA 1 Leg Swing Left Limited Leg Swing Right Limited PT-OP-K Range of Motion Start: 12/05/17 08:49 Freq: Status: Active Protocol: Document 12/05/17 09:50 [facility] (Rec: 12/05/17 10:36 [facility] [id number]) Cervical Spine Range of Motion Cervical Spine Active Degrees Testing Position Sitting Flexion 63 Extension 40 Rotation Left 50 Rotation Right 44 Lateral Flexion Left 22 Lateral Flexion Right 18 Comments pain w/ flex & ipsilateral pain w/SB Lumbar Spine Range of Motion Lumbar Spine Active Degrees Flexion 75 Extension 12 Rotation Left 23 Rotation Right 32 Lateral Flexion Left 20 Lateral Flexion Right 25 Comments pain w/ ext; pain w/ L side bend PT-OP-L Special Tests Start: 12/05/17 08:49 Freq: Status: Active Protocol: Document 12/05/17 09:50 [facility] (Rec: 12/05/17 10:36 [facility] [id number]) Special Tests Cervical Spine Special Tests Vertebral Artery Test Results neg B Spurling's Test Test Results positive Lumbar Spine Special Tests Straight Leg Raise Test Results positive B with pain into L thoracic region Slump Test Results neg B PT-OP-M Strength Start: 12/05/17 08:49 Freq: Status: Active Protocol: Document 12/05/17 09:50 [facility] (Rec: 12/05/17 10:36 [facility] [id number]) Shoulder Strength Shoulder Manual Muscle Testing Right Flexion 5 Normal Extension 5 Normal Abduction (C5) 5 Normal External Rotation 5 Normal Internal Rotation 5 Normal Horizontal Abduction 5 Normal Horizontal Adduction 5 Normal Left Flexion 5 Normal Extension 5 Normal Abduction (C5) 4+ Good+ External Rotation 5 Normal Internal Rotation 5 Normal Horizontal Abduction 4- Good- Horizontal Adduction 4- Good- Comments pain L abd & Hadd & HABD Hip Strength Hip Manual Muscle Testing Right Flexion (L2) 5 Normal Abduction 4+ Good+ External Rotation 5 Normal Internal Rotation 4 Good Comments WNL Knee strength Left Flexion (L2) 4 Good External Rotation 4 Good Internal Rotation 3 Fair PT-OP-Q Treatments Start: 12/05/17 08:49 Freq: Status: Active Protocol: Document 01/15/18 13:03 [facility] (Rec: 01/15/18 13:49 [facility] [id number]) Cardio Equipment Recumbent Elliptical ([employer]) Duration (Minutes) 5 Resistance 4 Therapeutic Exercises Standing Exercises 2 Standing Exercise Name squat Comments VC for form Therapeutic Activity Therapeutic Activity stairs Name w/carrying Comments mechanics for up/down stairs while carrying & hip & core control Lifting Name Lifting Comments from ground, elevated surfaces , in/out truck, opening/ closing truck gate PT-OP-R Modalities Start: 12/05/17 08:49 Freq: Status: Active Protocol: Document 01/15/18 13:03 [facility] (Rec: 01/15/18 17:03 [facility] [id number]) Electric Stimulation Electric Stimulation Interferential Current (IFC) Body Location lumbar Duration (Minutes) 10 Patient Position Prone Combined With Heat/Cold Cold Pack Comments CP lumbar & thoracic PT-OP-T Assessment and Plan Start: 12/05/17 08:49 Freq: Status: Active Protocol: Document 01/15/18 13:03 [facility] (Rec: 01/15/18 13:49 [facility] [id number]) Physical Therapy Assessment Goals Four Impairment activities Short Term Goal (STG) Pt will demonstrate good lifting mechanics & will have an ergonomically correct desk set up. STG Duration 01/05/18 Crisis Counselor Goal (LTG) Pt will be able to garden, lift and do long walks without pain. LTG Duration 02/04/18 Three Impairment bed mobility Crisis Counselor Goal (LTG) Pt will be able to do all bed mobility without pain LTG Duration 02/04/18 Two Impairment core stability/strength Short Term Goal (STG) Pt will be indep with HEP STG Duration 01/05/18 Prison Goal (LTG) 5/5 LE strength, EFT, VCT & LPM to demonstrate improved stability and to allow pt to return to normal activities LTG Duration 02/04/18 One Impairment pain Short Term Goal (STG) Constant pain to 1/10 STG Duration 01/05/18 Crisis Counselor Goal (LTG) worst pain to 2/10 LTG Duration 02/04/18 Assessment Summary Assessment Significant cueing was required for lifting form and required mult reviews throughout different positions and for different activities. Pt required cueing to maintain good squat form. Physical Therapy Plan Frequency and Duration Frequency of Treatment 2x/Week Duration of Treatment 2 months Plan of Care Start Date 12/05/17 Plan of Care End Date 02/04/18 Next Visit Focus/Plan Next Note Type Treatment Note Next Visit Plan cont to progress core stability & mobility through ribcage & thoracic region
--- NOTE | 2018-01-22 09:54 | PT.OTN ---
Current Diagnoses Other chronic pain (01/22/18) Pain in thoracic spine (01/22/18) Physical Therapy Treatment Note PT-OP-A Visit Information Start: 12/05/17 08:49 Freq: Status: Active Protocol: Document 01/22/18 09:48 [facility] (Rec: 01/22/18 09:54 [facility] [email or web address]) Out-Patient Physical Therapy Visit Information Visit Information Visit Type Treatment Note Visit Start Time 09:00 Visit Stop Time 10:00 Total Visit Minutes 60 Visit Number 8 Number of COATING AND EMBOSSING UNIT OPERATOR Visits 0 PT-OP-B Current Condition Start: 12/05/17 08:49 Freq: Status: Active Protocol: Document 12/05/17 09:50 [facility] (Rec: 12/05/17 15:21 [facility] [email or web address]) Current Condition History of Current Condition Onset Date May-June 2017 Current Complaints L upper lumbar through thoracic to neck L>R History of Current Condition Pt c/o mostly L lower thoracic pain that she says starts at L upper lumbar and radiates up to L cervical region, and can be painful on both sides. Reports it is mostly more annoying that painful, except when rolling. Pt reports she hears a clicking in her neck also. She has not tried icing for pain relief. Pt reports she walks daily, but has avoided distance w/walks d/t pain and puts of her daily activities. 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 She is still occasionally getting sharp pains, but constant pain is about 1/10 and very dull. P reports L lumbar region is where most of the pain is. PT-OP-F Manual Assessment Start: 12/05/17 08:49 Freq: Status: Active Protocol: Document 12/05/17 09:50 [facility] (Rec: 12/05/17 10:36 [facility] [id number]) Manual Assessments Joint Mobility Assessment Joint Mobility Assessment Equal greater trochanters & iliac crest height. PT-OP-G Mobility & Gait Start: 12/05/17 08:49 Freq: Status: Active Protocol: Document 12/05/17 09:50 [facility] (Rec: 12/05/17 10:36 [facility] [id number]) OP Gait Assessment Comments Gait Comments Dec B hip ext and dec UE arm swing. Overall dec post depression & ant elevation of pelvis. PT-OP-J Posture/Palpation/Skin Start: 12/05/17 08:49 Freq: Status: Active Protocol: Document 12/05/17 09:50 [facility] (Rec: 12/05/17 10:36 [facility] [id number]) Posture Evaluation Agustin Postural Classification System Agustin Postural Classifications Anterior/Posterior Vertebral Compression Test 2 Elbow Flexion Test 0 Lumbar Protective Mechanism Left AP 0 Lumbar Protective Mechanism Right AP 1 Lumbar Protective Mechanism Left PA 0 Lumbar Protective Mechanism Right PA 1 Leg Swing Left Limited Leg Swing Right Limited PT-OP-K Range of Motion Start: 12/05/17 08:49 Freq: Status: Active Protocol: Document 12/05/17 09:50 [facility] (Rec: 12/05/17 10:36 [facility] [id number]) Cervical Spine Range of Motion Cervical Spine Active Degrees Testing Position Sitting Flexion 63 Extension 40 Rotation Left 50 Rotation Right 44 Lateral Flexion Left 22 Lateral Flexion Right 18 Comments pain w/ flex & ipsilateral pain w/SB Lumbar Spine Range of Motion Lumbar Spine Active Degrees Flexion 75 Extension 12 Rotation Left 23 Rotation Right 32 Lateral Flexion Left 20 Lateral Flexion Right 25 Comments pain w/ ext; pain w/ L side bend PT-OP-L Special Tests Start: 12/05/17 08:49 Freq: Status: Active Protocol: Document 12/05/17 09:50 [facility] (Rec: 12/05/17 10:36 [facility] [id number]) Special Tests Cervical Spine Special Tests Vertebral Artery Test Results neg B Spurling's Test Test Results positive Lumbar Spine Special Tests Straight Leg Raise Test Results positive B with pain into L thoracic region Slump Test Results neg B PT-OP-M Strength Start: 12/05/17 08:49 Freq: Status: Active Protocol: Document 12/05/17 09:50 [facility] (Rec: 12/05/17 10:36 [facility] [id number]) Shoulder Strength Shoulder Manual Muscle Testing Right Flexion 5 Normal Extension 5 Normal Abduction (C5) 5 Normal External Rotation 5 Normal Internal Rotation 5 Normal Horizontal Abduction 5 Normal Horizontal Adduction 5 Normal Left Flexion 5 Normal Extension 5 Normal Abduction (C5) 4+ Good+ External Rotation 5 Normal Internal Rotation 5 Normal Horizontal Abduction 4- Good- Horizontal Adduction 4- Good- Comments pain L abd & Hadd & HABD Hip Strength Hip Manual Muscle Testing Right Flexion (L2) 5 Normal Abduction 4+ Good+ External Rotation 5 Normal Internal Rotation 4 Good Comments WNL Knee strength Left Flexion (L2) 4 Good External Rotation 4 Good Internal Rotation 3 Fair PT-OP-Q Treatments Start: 12/05/17 08:49 Freq: Status: Active Protocol: Document 01/22/18 09:48 [facility] (Rec: 01/22/18 09:54 [facility] [email or web address]) Cardio Equipment Recumbent Stepper (Sci-Fit) Duration (Minutes) 6 Resistance 4 Therapeutic Exercises Supine Exercises 2 Supine Exercise Name bridging Reps/Minutes 8 Sitting Exercises 2 Sitting Exercise Name sit to stand weigth shift Standing Exercises 2 Standing Exercise Name squat Comments VC for form Therapeutic Activity Therapeutic Activity sit to stand Name sit to stand Comments weight shifting for sit to stand to work on weight acceptance Manual Therapy Treatment Soft Tissue Mobilization 1 Body Location QL & lumbar paraspinals Mobilization Type Rolling Intensity/Depth Moderate Body Position Prone PT-OP-R Modalities Start: 12/05/17 08:49 Freq: Status: Active Protocol: Document 01/22/18 09:48 [facility] (Rec: 01/22/18 09:54 [facility] [email or web address]) Hot Pack/Cold Pack Treatment Hot Pack Location lumbar Patient Position Prone Treatment Duration (minutes) 15 PT-OP-T Assessment and Plan Start: 12/05/17 08:49 Freq: Status: Active Protocol: Document 01/22/18 09:48 [facility] (Rec: 01/22/18 09:54 [facility] [email or web address]) Physical Therapy Assessment Goals Four Impairment activities Short Term Goal (STG) Pt will demonstrate good lifting mechanics & will have an ergonomically correct desk set up. STG Duration 01/05/18-improving Timber Killer Goal (LTG) Pt will be able to garden, lift and do long walks without pain. LTG Duration 02/04/18 Three Impairment bed mobility Timber Killer Goal (LTG) Pt will be able to do all bed mobility without pain LTG Duration 02/04/18-improving Two Impairment core stability/strength Short Term Goal (STG) Pt will be indep with HEP STG Duration 01/05/18-advancing HEP Timber Killer Goal (LTG) 5/5 LE strength, EFT, VCT & LPM to demonstrate improved stability and to allow pt to return to normal activities LTG Duration 02/04/18 One Impairment pain Short Term Goal (STG) Constant pain to 1/10 STG Duration achieved Mcfp Goal (LTG) worst pain to 2/10 LTG Duration 02/04/18 Assessment Summary Assessment Pt required significant time and cueing for sit to stand mechanics and weight shifting and required significant cueing for knee protection for squatting. Physical Therapy Plan Frequency and Duration Frequency of Treatment 2x/Week Duration of Treatment 2 months Plan of Care Start Date 12/05/17 Plan of Care End Date 02/04/18 Next Visit Focus/Plan Next Note Type Treatment Note Next Visit Plan cont to progress core stability & mobility through ribcage & thoracic region; resisted side stepping and backwards walking
--- NOTE | 2018-01-27 14:55 | PT.OTN ---
Current Diagnoses Other chronic pain (01/27/18) Pain in thoracic spine (01/27/18) Physical Therapy Treatment Note PT-OP-A Visit Information Start: 12/05/17 08:49 Freq: Status: Active Protocol: Document 01/27/18 12:00 [facility] (Rec: 01/27/18 14:53 [email or web address]) Out-Patient Physical Therapy Visit Information Visit Information Visit Type Treatment Note Visit Start Time 12:00 Visit Stop Time 12:50 Total Visit Minutes 50 Visit Number 9 Number of SEASONAL TAX PREPARER Visits 1 Evaluation Information Evaluation Date 12/05/17 PT-OP-B Current Condition Start: 12/05/17 08:49 Freq: Status: Active Protocol: Document 12/05/17 09:50 [facility] (Rec: 12/05/17 15:21 [facility] [email or web address]) Current Condition History of Current Condition Onset Date June 2017 Current Complaints L upper lumbar through thoracic to neck L>R History of Current Condition Pt c/o mostly L lower thoracic pain that she says starts at L upper lumbar and radiates up to L cervical region, and can be painful on both sides. Reports it is mostly more annoying that painful, except when rolling. Pt reports she hears a clicking in her neck also. She has not tried icing for pain relief. Pt reports she walks daily, but has avoided distance w/walks d/t pain and puts of her daily activities. 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 PT-OP-F Manual Assessment Start: 12/05/17 08:49 Freq: Status: Active Protocol: Document 12/05/17 09:50 [facility] (Rec: 12/05/17 10:36 [facility] [id number]) Manual Assessments Joint Mobility Assessment Joint Mobility Assessment Equal greater trochanters & iliac crest height. PT-OP-G Mobility & Gait Start: 12/05/17 08:49 Freq: Status: Active Protocol: Document 12/05/17 09:50 [facility] (Rec: 12/05/17 10:36 [facility] [id number]) OP Gait Assessment Comments Gait Comments Dec B hip ext and dec UE arm swing. Overall dec post depression & ant elevation of pelvis. PT-OP-J Posture/Palpation/Skin Start: 12/05/17 08:49 Freq: Status: Active Protocol: Document 12/05/17 09:50 [facility] (Rec: 12/05/17 10:36 [facility] [id number]) Posture Evaluation Agustin Postural Classification System Agustin Postural Classifications Anterior/Posterior Vertebral Compression Test 2 Elbow Flexion Test 0 Lumbar Protective Mechanism Left AP 0 Lumbar Protective Mechanism Right AP 1 Lumbar Protective Mechanism Left PA 0 Lumbar Protective Mechanism Right PA 1 Leg Swing Left Limited Leg Swing Right Limited PT-OP-K Range of Motion Start: 12/05/17 08:49 Freq: Status: Active Protocol: Document 12/05/17 09:50 [facility] (Rec: 12/05/17 10:36 [facility] [id number]) Cervical Spine Range of Motion Cervical Spine Active Degrees Testing Position Sitting Flexion 63 Extension 40 Rotation Left 50 Rotation Right 44 Lateral Flexion Left 22 Lateral Flexion Right 18 Comments pain w/ flex & ipsilateral pain w/SB Lumbar Spine Range of Motion Lumbar Spine Active Degrees Flexion 75 Extension 12 Rotation Left 23 Rotation Right 32 Lateral Flexion Left 20 Lateral Flexion Right 25 Comments pain w/ ext; pain w/ L side bend PT-OP-L Special Tests Start: 12/05/17 08:49 Freq: Status: Active Protocol: Document 12/05/17 09:50 [facility] (Rec: 12/05/17 10:36 [facility] [id number]) Special Tests Cervical Spine Special Tests Vertebral Artery Test Results neg B Spurling's Test Test Results positive Lumbar Spine Special Tests Straight Leg Raise Test Results positive B with pain into L thoracic region Slump Test Results neg B PT-OP-M Strength Start: 12/05/17 08:49 Freq: Status: Active Protocol: Document 12/05/17 09:50 [facility] (Rec: 12/05/17 10:36 [facility] [id number]) Shoulder Strength Shoulder Manual Muscle Testing Right Flexion 5 Normal Extension 5 Normal Abduction (C5) 5 Normal External Rotation 5 Normal Internal Rotation 5 Normal Horizontal Abduction 5 Normal Horizontal Adduction 5 Normal Left Flexion 5 Normal Extension 5 Normal Abduction (C5) 4+ Good+ External Rotation 5 Normal Internal Rotation 5 Normal Horizontal Abduction 4- Good- Horizontal Adduction 4- Good- Comments pain L abd & Hadd & HABD Hip Strength Hip Manual Muscle Testing Right Flexion (L2) 5 Normal Abduction 4+ Good+ External Rotation 5 Normal Internal Rotation 4 Good Comments WNL Knee strength Left Flexion (L2) 4 Good External Rotation 4 Good Internal Rotation 3 Fair PT-OP-Q Treatments Start: 12/05/17 08:49 Freq: Status: Active Protocol: Document 01/27/18 12:00 [facility] (Rec: 01/27/18 14:53 [email or web address]) Cardio Equipment Recumbent Stepper (Sci-Fit) Duration (Minutes) 6 Resistance 4 Therapeutic Exercises Supine Exercises 4 Supine Exercise Name lower trunk rotations Side bilateral Reps/Minutes 10 second holds x 3 Comments active- no holds 2 Supine Exercise Name bridging Side bilateral Resistance ball 55cm Reps/Minutes 15 Sitting Exercises 2 Sitting Exercise Name sit to stand weigth shift Standing Exercises 4 Standing Exercise Name resisted lateral stepping Side bilateral Resistance yellow band Reps/Minutes 3 lengths of bar Comments Forward/backwards stepping Other Exercises 2 Other Exercise Name paresh pose straight and to R Reps/Minutes 3 x 10 second holds 1 Other Exercise Name cat and camel Reps/Minutes 10 Comments focus on pelvic/lumbar movement Therapeutic Activity Therapeutic Activity Lifting Name Lifting Comments from ground, elevated surfaces , Manual Therapy Treatment Soft Tissue Mobilization 1 Body Location QL & lumbar paraspinals Mobilization Type Rolling Intensity/Depth Moderate Body Position Prone PT-OP-R Modalities Start: 12/05/17 08:49 Freq: Status: Active Protocol: Document 01/27/18 12:00 [facility] (Rec: 01/27/18 14:53 [email or web address]) Hot Pack/Cold Pack Treatment Hot Pack Location lumbar Patient Position Prone Treatment Duration (minutes) 15 PT-OP-T Assessment and Plan Start: 12/05/17 08:49 Freq: Status: Active Protocol: Document 01/27/18 12:00 [facility] (Rec: 01/27/18 14:53 [email or web address]) Physical Therapy Assessment Goals Four Impairment activities Short Term Goal (STG) Pt will demonstrate good lifting mechanics & will have an ergonomically correct desk set up. STG Duration 01/05/18-improving Blackjack Dealer Goal (LTG) Pt will be able to garden, lift and do long walks without pain. LTG Duration 02/04/18 Three Impairment bed mobility Mcfp Goal (LTG) Pt will be able to do all bed mobility without pain LTG Duration 02/04/18-improving Two Impairment core stability/strength Short Term Goal (STG) Pt will be indep with HEP STG Duration 01/05/18-advancing HEP Mcfp Goal (LTG) 5/5 LE strength, EFT, VCT & LPM to demonstrate improved stability and to allow pt to return to normal activities LTG Duration 02/04/18 One Impairment pain Short Term Goal (STG) Constant pain to 1/10 STG Duration achieved Blackjack Dealer Goal (LTG) worst pain to 2/10 LTG Duration 02/04/18 Assessment Summary Assessment Continued cues for proper form on sit to stands but increased ease of movement, difficulty with resisted hip ABD. Physical Therapy Plan Frequency and Duration Frequency of Treatment 2x/Week Duration of Treatment 2 months Plan of Care Start Date 12/05/17 Plan of Care End Date 02/04/18 Next Visit Focus/Plan Next Note Type Treatment Note Next Visit Plan Follow up with sleep positioning and hip ABD strength training/core strengthening.
--- NOTE | 2018-02-03 15:59 | PT.OTN ---
Current Diagnoses Other chronic pain (02/03/18) Pain in thoracic spine (02/03/18) Physical Therapy Treatment Note PT-OP-A Visit Information Start: 12/05/17 08:49 Freq: Status: Active Protocol: Document 02/03/18 12:00 [facility] (Rec: 02/03/18 15:59 [facility] [email or web address]) Out-Patient Physical Therapy Visit Information Visit Information Visit Type Treatment Note Visit Start Time 12:00 Visit Stop Time 12:50 Total Visit Minutes 50 Visit Number 10 Number of LINE PILOT Visits 2 Evaluation Information Evaluation Date 12/05/17 PT-OP-B Current Condition Start: 12/05/17 08:49 Freq: Status: Active Protocol: Document 12/05/17 09:50 [facility] (Rec: 12/05/17 15:21 [facility] [email or web address]) Current Condition History of Current Condition Onset Date June 2017 Current Complaints L upper lumbar through thoracic to neck L>R History of Current Condition Pt c/o mostly L lower thoracic pain that she says starts at L upper lumbar and radiates up to L cervical region, and can be painful on both sides. Reports it is mostly more annoying that painful, except when rolling. Pt reports she hears a clicking in her neck also. She has not tried icing for pain relief. Pt reports she walks daily, but has avoided distance w/walks d/t pain and puts of her daily activities. 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 PT-OP-F Manual Assessment Start: 12/05/17 08:49 Freq: Status: Active Protocol: Document 12/05/17 09:50 [facility] (Rec: 12/05/17 10:36 [facility] [id number]) Manual Assessments Joint Mobility Assessment Joint Mobility Assessment Equal greater trochanters & iliac crest height. PT-OP-G Mobility & Gait Start: 12/05/17 08:49 Freq: Status: Active Protocol: Document 12/05/17 09:50 [facility] (Rec: 12/05/17 10:36 [facility] [id number]) OP Gait Assessment Comments Gait Comments Dec B hip ext and dec UE arm swing. Overall dec post depression & ant elevation of pelvis. PT-OP-J Posture/Palpation/Skin Start: 12/05/17 08:49 Freq: Status: Active Protocol: Document 02/03/18 12:00 [facility] (Rec: 02/03/18 15:59 [facility] [email or web address]) Posture Evaluation Agustin Postural Classification System Agustin Postural Classifications Anterior/Posterior Vertebral Compression Test 2 Elbow Flexion Test 1 Lumbar Protective Mechanism Left AP 0 Lumbar Protective Mechanism Right AP 1 Lumbar Protective Mechanism Left PA 1 Lumbar Protective Mechanism Right PA 1 Leg Swing Left Limited Leg Swing Right Limited PT-OP-K Range of Motion Start: 12/05/17 08:49 Freq: Status: Active Protocol: Document 12/05/17 09:50 [facility] (Rec: 12/05/17 10:36 [facility] [id number]) Cervical Spine Range of Motion Cervical Spine Active Degrees Testing Position Sitting Flexion 63 Extension 40 Rotation Left 50 Rotation Right 44 Lateral Flexion Left 22 Lateral Flexion Right 18 Comments pain w/ flex & ipsilateral pain w/SB Lumbar Spine Range of Motion Lumbar Spine Active Degrees Flexion 75 Extension 12 Rotation Left 23 Rotation Right 32 Lateral Flexion Left 20 Lateral Flexion Right 25 Comments pain w/ ext; pain w/ L side bend PT-OP-L Special Tests Start: 12/05/17 08:49 Freq: Status: Active Protocol: Document 12/05/17 09:50 [facility] (Rec: 12/05/17 10:36 [facility] [id number]) Special Tests Cervical Spine Special Tests Vertebral Artery Test Results neg B Spurling's Test Test Results positive Lumbar Spine Special Tests Straight Leg Raise Test Results positive B with pain into L thoracic region Slump Test Results neg B PT-OP-M Strength Start: 12/05/17 08:49 Freq: Status: Active Protocol: Document 02/03/18 12:00 [facility] (Rec: 02/03/18 15:59 [facility] [email or web address]) Hip Strength Hip Manual Muscle Testing Right Flexion (L2) 5 Normal Abduction 4+ Good+ External Rotation 5 Normal Internal Rotation 4 Good Comments WNL Knee strength Left Flexion (L2) 4+ Good+ External Rotation 4 Good Internal Rotation 4- Good- PT-OP-Q Treatments Start: 12/05/17 08:49 Freq: Status: Active Protocol: Document 02/03/18 12:00 [facility] (Rec: 02/03/18 15:59 [facility] [email or web address]) Cardio Equipment Recumbent Stepper (Sci-Fit) Duration (Minutes) 6 Resistance 4 Therapeutic Exercises Supine Exercises 5 Supine Exercise Name single push on leg with opposite hand Side bilateral Reps/Minutes 30 sec. each 2 Supine Exercise Name bridging Side bilateral Resistance ball 55cm Reps/Minutes 15 1 Supine Exercise Name LTR Side bilateral Comments cues to not push into pain, limit motion to painfree Sitting Exercises 2 Sitting Exercise Name sit to stand weigth shift Standing Exercises 2 Standing Exercise Name squat Comments VC and yard stick for form Therapeutic Activity Therapeutic Activity sit to stand Name sit to stand Comments weight shifting for sit to stand to work on weight acceptance Lifting Name Lifting Comments from ground, elevated surfaces , 1 Name log rolling Comments focus on core activation Manual Therapy Treatment Soft Tissue Mobilization 1 Body Location QL & lumbar paraspinals Mobilization Type Rolling Intensity/Depth Moderate Body Position Prone PT-OP-R Modalities Start: 12/05/17 08:49 Freq: Status: Active Protocol: Document 02/03/18 12:00 [facility] (Rec: 02/03/18 15:59 [facility] [email or web address]) Hot Pack/Cold Pack Treatment Hot Pack Location lumbar Patient Position Prone Treatment Duration (minutes) 10 PT-OP-T Assessment and Plan Start: 12/05/17 08:49 Freq: Status: Active Protocol: Document 02/03/18 12:00 [facility] (Rec: 02/03/18 15:59 [facility] [email or web address]) Physical Therapy Assessment Goals Four Impairment activities Short Term Goal (STG) Pt will demonstrate good lifting mechanics & will have an ergonomically correct desk set up. STG Duration 02/03/18-improving, Has setup desk Javascript Software Engineer Goal (LTG) Pt will be able to garden, lift and do long walks without pain. LTG Duration 02/04/18 Three Impairment bed mobility Javascript Software Engineer Goal (LTG) Pt will be able to do all bed mobility without pain LTG Duration 02/04/18-improving MIld pain with log roll. Two Impairment core stability/strength Short Term Goal (STG) Pt will be indep with HEP STG Duration 01/05/18-advancing HEP Javascript Software Engineer Goal (LTG) 5/5 LE strength, EFT, VCT & LPM to demonstrate improved stability and to allow pt to return to normal activities LTG Duration 02/04/18 One Impairment pain Short Term Goal (STG) Constant pain to 1/10 STG Duration achieved Fpc Goal (LTG) worst pain to 2/10 LTG Duration 02/04/18 Assessment Summary Assessment Pt improving with body mechanics and sit to stands. She still needs cues for squat form and log roll techinque. She slowly improving with strength. Physical Therapy Plan Frequency and Duration Frequency of Treatment 2x/Week Duration of Treatment 2 months Plan of Care Start Date 02/03/18 Plan of Care End Date 04/05/18 Next Visit Focus/Plan Next Note Type Treatment Note Next Visit Plan Follow up with sleep positioning and hip ABD strength training/core strengthening.
--- NOTE | 2018-02-04 11:12 | PT.OPPN ---
Current Diagnoses Other chronic pain (02/03/18) Pain in thoracic spine (02/03/18) Physical Therapy Progress Note PT-OP-A Visit Information Start: 12/05/17 08:49 Freq: Status: Active Protocol: Document 02/03/18 12:00 GGD (Rec: 02/03/18 15:59 GGD [email or web address]) Out-Patient Physical Therapy Visit Information Visit Information Visit Type Treatment Note Visit Start Time 12:00 Visit Stop Time 12:50 Total Visit Minutes 50 Visit Number 10 Number of BINDERY LIBRARY TECHNICAL ASSISTANT Visits 2 Evaluation Information Evaluation Date 12/05/17 PT-OP-B Current Condition Start: 12/05/17 08:49 Freq: Status: Active Protocol: Document 12/05/17 09:50 LR (Rec: 12/05/17 15:21 [facility] [id number]) Current Condition History of Current Condition Onset Date June 2017 Current Complaints L upper lumbar through thoracic to neck L>R History of Current Condition Pt c/o mostly L lower thoracic pain that she says starts at L upper lumbar and radiates up to L cervical region, and can be painful on both sides. Reports it is mostly more annoying that painful, except when rolling. Pt reports she hears a clicking in her neck also. She has not tried icing for pain relief. Pt reports she walks daily, but has avoided distance w/walks d/t pain and puts of her daily activities. 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 PT-OP-F Manual Assessment Start: 12/05/17 08:49 Freq: Status: Active Protocol: Document 12/05/17 09:50 [facility] (Rec: 12/05/17 10:36 [facility] [id number]) Manual Assessments Joint Mobility Assessment Joint Mobility Assessment Equal greater trochanters & iliac crest height. PT-OP-G Mobility & Gait Start: 12/05/17 08:49 Freq: Status: Active Protocol: Document 12/05/17 09:50 [facility] (Rec: 12/05/17 10:36 [facility] [id number]) OP Gait Assessment Comments Gait Comments Dec B hip ext and dec UE arm swing. Overall dec post depression & ant elevation of pelvis. PT-OP-J Posture/Palpation/Skin Start: 12/05/17 08:49 Freq: Status: Active Protocol: Document 02/03/18 12:00 GGD (Rec: 02/03/18 15:59 GGD [email or web address]) Posture Evaluation Agustin Postural Classification System Agustin Postural Classifications Anterior/Posterior Vertebral Compression Test 2 Elbow Flexion Test 1 Lumbar Protective Mechanism Left AP 0 Lumbar Protective Mechanism Right AP 1 Lumbar Protective Mechanism Left PA 1 Lumbar Protective Mechanism Right PA 1 Leg Swing Left Limited Leg Swing Right Limited PT-OP-K Range of Motion Start: 12/05/17 08:49 Freq: Status: Active Protocol: Document 12/05/17 09:50 [facility] (Rec: 12/05/17 10:36 [facility] [id number]) Cervical Spine Range of Motion Cervical Spine Active Degrees Testing Position Sitting Flexion 63 Extension 40 Rotation Left 50 Rotation Right 44 Lateral Flexion Left 22 Lateral Flexion Right 18 Comments pain w/ flex & ipsilateral pain w/SB Lumbar Spine Range of Motion Lumbar Spine Active Degrees Flexion 75 Extension 12 Rotation Left 23 Rotation Right 32 Lateral Flexion Left 20 Lateral Flexion Right 25 Comments pain w/ ext; pain w/ L side bend PT-OP-L Special Tests Start: 12/05/17 08:49 Freq: Status: Active Protocol: Document 12/05/17 09:50 [facility] (Rec: 12/05/17 10:36 [facility] [id number]) Special Tests Cervical Spine Special Tests Vertebral Artery Test Results neg B Spurling's Test Test Results positive Lumbar Spine Special Tests Straight Leg Raise Test Results positive B with pain into L thoracic region Slump Test Results neg B PT-OP-M Strength Start: 12/05/17 08:49 Freq: Status: Active Protocol: Document 02/03/18 12:00 GGD (Rec: 02/03/18 15:59 GGD [email or web address]) Hip Strength Hip Manual Muscle Testing Right Flexion (L2) 5 Normal Abduction 4+ Good+ External Rotation 5 Normal Internal Rotation 4 Good Comments WNL Knee strength Left Flexion (L2) 4+ Good+ External Rotation 4 Good Internal Rotation 4- Good- PT-OP-T Assessment and Plan Start: 12/05/17 08:49 Freq: Status: Active Protocol: Document 02/04/18 11:09 [facility] (Rec: 02/04/18 11:12 [facility] [id number]) Physical Therapy Assessment Impairments Impairments Activity Tolerance Balance Functional Mobility Gait Pain Posture ROM Soft Tissue Mobility Strength Goals Four Impairment activities Short Term Goal (STG) Pt will demonstrate good lifting mechanics & will have an ergonomically correct desk set up. STG Duration 03/06/18-improving, Has setup desk Yardage Estimator Goal (LTG) Pt will be able to garden, lift and do long walks without pain. LTG Duration 04/05/18 Three Impairment bed mobility Snf Goal (LTG) Pt will be able to do all bed mobility without pain LTG Duration 03/07/18-improving MIld pain with log roll. Two Impairment core stability/strength Short Term Goal (STG) Pt will be indep with HEP STG Duration 01/05/18-advancing HEP Snf Goal (LTG) 5/5 LE strength, EFT, VCT & LPM to demonstrate improved stability and to allow pt to return to normal activities LTG Duration 04/06/18 One Impairment pain Short Term Goal (STG) Constant pain to 1/10 STG Duration achieved Snf Goal (LTG) worst pain to 2/10 LTG Duration 04/06/18 Assessment Summary Assessment Pt cont to require cueing with squatting but is overall improving with body mechanics and is having overall less pain with acitivity. She cont to have dec core stability and would benefit from cont PT to cont to progress core stability & overall mobility. Physical Therapy Plan Frequency and Duration Frequency of Treatment 2x/Week Duration of Treatment 2 months Plan of Care Start Date 02/03/18 Plan of Care End Date 04/05/18 Therapeutic Interventions Therapeutic Interventions Balance Training Gait Training Home Exercise Program Joint Mobilizations Manual Therapy Neuromuscular Re-education Patient/Caregiver Education Soft Tissue Mobilization Taping Therapeutic Activities Therapeutic Exercises Modalities Cold Pack/Ice Massage Electric Stimulation Hot Packs Traction- Mechanical Ultrasound Next Visit Focus/Plan Next Note Type Treatment Note Next Visit Plan Follow up with sleep positioning and hip ABD strength training/core strengthening.
--- NOTE | 2018-02-04 11:12 | PT.OPPOC ---
Current Diagnoses Other chronic pain (02/03/18) Pain in thoracic spine (02/03/18) Provider Visit Care Team Role Provider Type Maricarmen Ramos DO Family Provider Physician Primary Care Provider Specialty: Family Practice Address: [address] [place] [address], [id number] Email: [email or web address] Davis MD Attending Provider Physician Specialty: Internal Medicine Address: [address] [place] [address], [id number] Email: Plan Of Care PT-OP-T Assessment and Plan Start: 12/05/17 08:49 Freq: Status: Active Protocol: Document 02/04/18 11:09 [facility] (Rec: 02/04/18 11:12 [facility] [id number]) Physical Therapy Assessment Impairments Impairments Activity Tolerance Balance Functional Mobility Gait Pain Posture ROM Soft Tissue Mobility Strength Goals Four Impairment activities Short Term Goal (STG) Pt will demonstrate good lifting mechanics & will have an ergonomically correct desk set up. STG Duration 03/06/18-improving, Has setup desk Associate Account Manager Goal (LTG) Pt will be able to garden, lift and do long walks without pain. LTG Duration 04/05/18 Three Impairment bed mobility Associate Account Manager Goal (LTG) Pt will be able to do all bed mobility without pain LTG Duration 03/07/18-improving MIld pain with log roll. Two Impairment core stability/strength Short Term Goal (STG) Pt will be indep with HEP STG Duration 01/05/18-advancing HEP Custodial Goal (LTG) 5/5 LE strength, EFT, VCT & LPM to demonstrate improved stability and to allow pt to return to normal activities LTG Duration 04/06/18 One Impairment pain Short Term Goal (STG) Constant pain to 1/10 STG Duration achieved Custodial Goal (LTG) worst pain to 2/10 LTG Duration 04/06/18 Assessment Summary Assessment Pt cont to require cueing with squatting but is overall improving with body mechanics and is having overall less pain with acitivity. She cont to have dec core stability and would benefit from cont PT to cont to progress core stability & overall mobility. Physical Therapy Plan Frequency and Duration Frequency of Treatment 2x/Week Duration of Treatment 2 months Plan of Care Start Date 02/03/18 Plan of Care End Date 04/05/18 Therapeutic Interventions Therapeutic Interventions Balance Training Gait Training Home Exercise Program Joint Mobilizations Manual Therapy Neuromuscular Re-education Patient/Caregiver Education Soft Tissue Mobilization Taping Therapeutic Activities Therapeutic Exercises Modalities Cold Pack/Ice Massage Electric Stimulation Hot Packs Traction- Mechanical Ultrasound Next Visit Focus/Plan Next Note Type Treatment Note Next Visit Plan Follow up with sleep positioning and hip ABD strength training/core strengthening. Plan of Care Dates Plan of Care Start Date 02/03/18 Plan of Care End Date 04/05/18 Please Sign and Return: I have reviewed this Plan of Care and certify that the skilled therapy services above are required to meet the patient?s needs. Physician Signature Date Printed Name and Credentials Clinical Instructor Signature Printed Name and Credentials
--- NOTE | 2018-02-10 14:17 | PT.OTN ---
Current Diagnoses Other chronic pain (02/10/18) Pain in thoracic spine (02/10/18) Physical Therapy Treatment Note PT-OP-A Visit Information Start: 12/05/17 08:49 Freq: Status: Active Protocol: Document 02/10/18 12:04 GGD (Rec: 02/10/18 12:28 GGD [id number]) Out-Patient Physical Therapy Visit Information Visit Information Visit Type Treatment Note Visit Start Time 12:05 Visit Stop Time 12:55 Total Visit Minutes 50 Visit Number 11 Number of BOILER COVERER Visits 3 Evaluation Information Evaluation Date 12/05/17 PT-OP-B Current Condition Start: 12/05/17 08:49 Freq: Status: Active Protocol: Document 12/05/17 09:50 [facility] (Rec: 12/05/17 15:21 [facility] [id number]) Current Condition History of Current Condition Onset Date May-June 2017 Current Complaints L upper lumbar through thoracic to neck L>R History of Current Condition Pt c/o mostly L lower thoracic pain that she says starts at L upper lumbar and radiates up to L cervical region, and can be painful on both sides. Reports it is mostly more annoying that painful, except when rolling. Pt reports she hears a clicking in her neck also. She has not tried icing for pain relief. Pt reports she walks daily, but has avoided distance w/walks d/t pain and puts of her daily activities. 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 PT-OP-G Mobility & Gait Start: 12/05/17 08:49 Freq: Status: Active Protocol: Document 12/05/17 09:50 [facility] (Rec: 12/05/17 10:36 [facility] [id number]) OP Gait Assessment Comments Gait Comments Dec B hip ext and dec UE arm swing. Overall dec post depression & ant elevation of pelvis. PT-OP-J Posture/Palpation/Skin Start: 12/05/17 08:49 Freq: Status: Active Protocol: Document 02/03/18 12:00 GGD (Rec: 02/03/18 15:59 GGD [email or web address]) Posture Evaluation Agustin Postural Classification System Agustin Postural Classifications Anterior/Posterior Vertebral Compression Test 2 Elbow Flexion Test 1 Lumbar Protective Mechanism Left AP 0 Lumbar Protective Mechanism Right AP 1 Lumbar Protective Mechanism Left PA 1 Lumbar Protective Mechanism Right PA 1 Leg Swing Left Limited Leg Swing Right Limited PT-OP-K Range of Motion Start: 12/05/17 08:49 Freq: Status: Active Protocol: Document 12/05/17 09:50 [facility] (Rec: 12/05/17 10:36 [facility] [id number]) Cervical Spine Range of Motion Cervical Spine Active Degrees Testing Position Sitting Flexion 63 Extension 40 Rotation Left 50 Rotation Right 44 Lateral Flexion Left 22 Lateral Flexion Right 18 Comments pain w/ flex & ipsilateral pain w/SB Lumbar Spine Range of Motion Lumbar Spine Active Degrees Flexion 75 Extension 12 Rotation Left 23 Rotation Right 32 Lateral Flexion Left 20 Lateral Flexion Right 25 Comments pain w/ ext; pain w/ L side bend PT-OP-L Special Tests Start: 12/05/17 08:49 Freq: Status: Active Protocol: Document 12/05/17 09:50 [facility] (Rec: 12/05/17 10:36 [facility] [id number]) Special Tests Cervical Spine Special Tests Vertebral Artery Test Results neg B Spurling's Test Test Results positive Lumbar Spine Special Tests Straight Leg Raise Test Results positive B with pain into L thoracic region Slump Test Results neg B PT-OP-M Strength Start: 12/05/17 08:49 Freq: Status: Active Protocol: Document 02/03/18 12:00 GGD (Rec: 02/03/18 15:59 GGD [email or web address]) Hip Strength Hip Manual Muscle Testing Right Flexion (L2) 5 Normal Abduction 4+ Good+ External Rotation 5 Normal Internal Rotation 4 Good Comments WNL Knee strength Left Flexion (L2) 4+ Good+ External Rotation 4 Good Internal Rotation 4- Good- PT-OP-Q Treatments Start: 12/05/17 08:49 Freq: Status: Active Protocol: Document 02/10/18 12:04 GGD (Rec: 02/10/18 12:28 GGD [id number]) Cardio Equipment Recumbent Stepper (Sci-Fit) Duration (Minutes) 6 Resistance 4 Therapeutic Exercises Supine Exercises 5 Supine Exercise Name single push on leg with opposite hand Side bilateral Reps/Minutes 30 sec. each 2 Supine Exercise Name bridging Side bilateral Resistance ball 55cm Reps/Minutes 15 1 Supine Exercise Name LTR Side bilateral Resistance ball Comments cues to not push into pain, limit motion to painfree Sidelying Exercises 2 Sidelying Exercise Name clamshells Side bilateral Reps/Minutes 10 Therapeutic Activity Therapeutic Activity 2 Name sleep postion in sidelying Lifting Name Lifting Comments from ground, elevated surfaces , 1 Name log rolling Comments focus on core activation Manual Therapy Treatment Soft Tissue Mobilization 1 Body Location QL & lumbar paraspinals Mobilization Type Rolling Intensity/Depth Moderate Body Position Prone PT-OP-R Modalities Start: 12/05/17 08:49 Freq: Status: Active Protocol: Document 02/10/18 12:04 GGD (Rec: 02/10/18 12:28 GGD [id number]) Hot Pack/Cold Pack Treatment Hot Pack Location lumbar Patient Position Prone Treatment Duration (minutes) 10 PT-OP-T Assessment and Plan Start: 12/05/17 08:49 Freq: Status: Active Protocol: Document 02/10/18 12:00 GGD (Rec: 02/10/18 14:17 GGD [email or web address]) Physical Therapy Assessment Assessment Summary Assessment Pt improving pain and technique of log roll and rolling in bed. She still needs cues for core stabilization and body mechanics. Physical Therapy Plan Frequency and Duration Frequency of Treatment 2x/Week Duration of Treatment 2 months Plan of Care Start Date 02/03/18 Plan of Care End Date 04/05/18 Next Visit Focus/Plan Next Note Type Treatment Note Next Visit Plan Progress hip ABD strength training/core strengthening.
--- NOTE | 2018-02-18 15:41 | PT.OTN ---
Current Diagnoses Other chronic pain (02/18/18) Pain in thoracic spine (02/18/18) Physical Therapy Treatment Note PT-OP-A Visit Information Start: 12/05/17 08:49 Freq: Status: Active Protocol: Document 02/18/18 10:30 AMB (Rec: 02/18/18 15:40 AMB [email or web address]) Out-Patient Physical Therapy Visit Information Visit Information Visit Type Treatment Note Visit Start Time 10:30 Visit Stop Time 11:20 Total Visit Minutes 55 Visit Number 12 Number of SWINE GENETICS RESEARCHER Visits 0 PT-OP-B Current Condition Start: 12/05/17 08:49 Freq: Status: Active Protocol: Document 12/05/17 09:50 [facility] (Rec: 12/05/17 15:21 [facility] [id number]) Current Condition History of Current Condition Onset Date May-June 2017 Current Complaints L upper lumbar through thoracic to neck L>R History of Current Condition Pt c/o mostly L lower thoracic pain that she says starts at L upper lumbar and radiates up to L cervical region, and can be painful on both sides. Reports it is mostly more annoying that painful, except when rolling. Pt reports she hears a clicking in her neck also. She has not tried icing for pain relief. Pt reports she walks daily, but has avoided distance w/walks d/t pain and puts of her daily activities. 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 She is considering getting a sit stand desk. PT-OP-F Manual Assessment Start: 12/05/17 08:49 Freq: Status: Active Protocol: Document 12/05/17 09:50 [facility] (Rec: 12/05/17 10:36 [facility] [id number]) Manual Assessments Joint Mobility Assessment Joint Mobility Assessment Equal greater trochanters & iliac crest height. PT-OP-G Mobility & Gait Start: 12/05/17 08:49 Freq: Status: Active Protocol: Document 12/05/17 09:50 [facility] (Rec: 12/05/17 10:36 [facility] [id number]) OP Gait Assessment Comments Gait Comments Dec B hip ext and dec UE arm swing. Overall dec post depression & ant elevation of pelvis. PT-OP-J Posture/Palpation/Skin Start: 12/05/17 08:49 Freq: Status: Active Protocol: Document 02/03/18 12:00 GGD (Rec: 02/03/18 15:59 GGD [email or web address]) Posture Evaluation Agustin Postural Classification System Agustin Postural Classifications Anterior/Posterior Vertebral Compression Test 2 Elbow Flexion Test 1 Lumbar Protective Mechanism Left AP 0 Lumbar Protective Mechanism Right AP 1 Lumbar Protective Mechanism Left PA 1 Lumbar Protective Mechanism Right PA 1 Leg Swing Left Limited Leg Swing Right Limited PT-OP-K Range of Motion Start: 12/05/17 08:49 Freq: Status: Active Protocol: Document 12/05/17 09:50 [facility] (Rec: 12/05/17 10:36 [facility] [id number]) Cervical Spine Range of Motion Cervical Spine Active Degrees Testing Position Sitting Flexion 63 Extension 40 Rotation Left 50 Rotation Right 44 Lateral Flexion Left 22 Lateral Flexion Right 18 Comments pain w/ flex & ipsilateral pain w/SB Lumbar Spine Range of Motion Lumbar Spine Active Degrees Flexion 75 Extension 12 Rotation Left 23 Rotation Right 32 Lateral Flexion Left 20 Lateral Flexion Right 25 Comments pain w/ ext; pain w/ L side bend PT-OP-L Special Tests Start: 12/05/17 08:49 Freq: Status: Active Protocol: Document 12/05/17 09:50 [facility] (Rec: 12/05/17 10:36 [facility] [id number]) Special Tests Cervical Spine Special Tests Vertebral Artery Test Results neg B Spurling's Test Test Results positive Lumbar Spine Special Tests Straight Leg Raise Test Results positive B with pain into L thoracic region Slump Test Results neg B PT-OP-M Strength Start: 12/05/17 08:49 Freq: Status: Active Protocol: Document 02/03/18 12:00 GGD (Rec: 02/03/18 15:59 GGD [email or web address]) Hip Strength Hip Manual Muscle Testing Right Flexion (L2) 5 Normal Abduction 4+ Good+ External Rotation 5 Normal Internal Rotation 4 Good Comments WNL Knee strength Left Flexion (L2) 4+ Good+ External Rotation 4 Good Internal Rotation 4- Good- PT-OP-Q Treatments Start: 12/05/17 08:49 Freq: Status: Active Protocol: Document 02/18/18 10:30 AMB (Rec: 02/18/18 15:40 AMB [email or web address]) Cardio Equipment Recumbent Stepper (Sci-Fit) Duration (Minutes) 6 Resistance 4 Therapeutic Exercises Supine Exercises 5 Supine Exercise Name single push on leg with opposite hand Side bilateral Reps/Minutes 30 sec. each 2 Supine Exercise Name bridging Side bilateral Resistance ball 55cm Reps/Minutes 15 1 Supine Exercise Name LTR Side bilateral Resistance ball Comments cues to not push into pain, limit motion to painfree Sidelying Exercises 2 Sidelying Exercise Name clamshells Side bilateral Reps/Minutes 10 1 Sidelying Exercise Name hip abduction Reps/Minutes 2x10 Standing Exercises 4 Standing Exercise Name SLR Reps/Minutes 2x10 Comments with TrA stabilization Manual Therapy Treatment Soft Tissue Mobilization 1 Body Location QL & lumbar paraspinals Mobilization Type Rolling Intensity/Depth Moderate Body Position Prone PT-OP-R Modalities Start: 12/05/17 08:49 Freq: Status: Active Protocol: Document 02/18/18 10:30 AMB (Rec: 02/18/18 15:40 AMB [email or web address]) Hot Pack/Cold Pack Treatment Hot Pack Location lumbar Patient Position Prone Treatment Duration (minutes) 10 PT-OP-T Assessment and Plan Start: 12/05/17 08:49 Freq: Status: Active Protocol: Document 02/18/18 10:30 AMB (Rec: 02/18/18 15:40 AMB [email or web address]) Physical Therapy Assessment Assessment Summary Assessment Hleped pt to priortize HEP, will need to continue with body mechanics training Physical Therapy Plan Next Visit Focus/Plan Next Note Type Treatment Note Next Visit Plan Progress hip ABD strength training/core strengthening.
--- NOTE | 2018-02-24 15:26 | PT.OTN ---
Current Diagnoses Other chronic pain (02/24/18) Pain in thoracic spine (02/24/18) Physical Therapy Treatment Note PT-OP-A Visit Information Start: 12/05/17 08:49 Freq: Status: Active Protocol: Document 02/24/18 11:15 AMB (Rec: 02/24/18 11:26 AMB [id number]) Out-Patient Physical Therapy Visit Information Visit Information Visit Type Treatment Note Visit Start Time 11:15 Visit Stop Time 12:00 Visit Number 13 Number of STITCHER SET UP OPERATOR AUTOMATIC Visits 0 Evaluation Information Evaluation Date 12/05/17 PT-OP-B Current Condition Start: 12/05/17 08:49 Freq: Status: Active Protocol: Document 12/05/17 09:50 [facility] (Rec: 12/05/17 15:21 [facility] [email or web address]) Current Condition History of Current Condition Onset Date May-June 2017 Current Complaints L upper lumbar through thoracic to neck L>R History of Current Condition Pt c/o mostly L lower thoracic pain that she says starts at L upper lumbar and radiates up to L cervical region, and can be painful on both sides. Reports it is mostly more annoying that painful, except when rolling. Pt reports she hears a clicking in her neck also. She has not tried icing for pain relief. Pt reports she walks daily, but has avoided distance w/walks d/t pain and puts of her daily activities. 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 PT-OP-F Manual Assessment Start: 12/05/17 08:49 Freq: Status: Active Protocol: Document 12/05/17 09:50 [facility] (Rec: 12/05/17 10:36 [facility] [id number]) Manual Assessments Joint Mobility Assessment Joint Mobility Assessment Equal greater trochanters & iliac crest height. PT-OP-G Mobility & Gait Start: 12/05/17 08:49 Freq: Status: Active Protocol: Document 12/05/17 09:50 [facility] (Rec: 12/05/17 10:36 [facility] [id number]) OP Gait Assessment Comments Gait Comments Dec B hip ext and dec UE arm swing. Overall dec post depression & ant elevation of pelvis. PT-OP-J Posture/Palpation/Skin Start: 12/05/17 08:49 Freq: Status: Active Protocol: Document 02/03/18 12:00 GGD (Rec: 02/03/18 15:59 GGD [email or web address]) Posture Evaluation Agustin Postural Classification System Agustin Postural Classifications Anterior/Posterior Vertebral Compression Test 2 Elbow Flexion Test 1 Lumbar Protective Mechanism Left AP 0 Lumbar Protective Mechanism Right AP 1 Lumbar Protective Mechanism Left PA 1 Lumbar Protective Mechanism Right PA 1 Leg Swing Left Limited Leg Swing Right Limited PT-OP-K Range of Motion Start: 12/05/17 08:49 Freq: Status: Active Protocol: Document 12/05/17 09:50 [facility] (Rec: 12/05/17 10:36 [facility] [id number]) Cervical Spine Range of Motion Cervical Spine Active Degrees Testing Position Sitting Flexion 63 Extension 40 Rotation Left 50 Rotation Right 44 Lateral Flexion Left 22 Lateral Flexion Right 18 Comments pain w/ flex & ipsilateral pain w/SB Lumbar Spine Range of Motion Lumbar Spine Active Degrees Flexion 75 Extension 12 Rotation Left 23 Rotation Right 32 Lateral Flexion Left 20 Lateral Flexion Right 25 Comments pain w/ ext; pain w/ L side bend PT-OP-L Special Tests Start: 12/05/17 08:49 Freq: Status: Active Protocol: Document 12/05/17 09:50 [facility] (Rec: 12/05/17 10:36 [facility] [id number]) Special Tests Cervical Spine Special Tests Vertebral Artery Test Results neg B Spurling's Test Test Results positive Lumbar Spine Special Tests Straight Leg Raise Test Results positive B with pain into L thoracic region Slump Test Results neg B PT-OP-M Strength Start: 12/05/17 08:49 Freq: Status: Active Protocol: Document 02/03/18 12:00 GGD (Rec: 02/03/18 15:59 GGD [email or web address]) Hip Strength Hip Manual Muscle Testing Right Flexion (L2) 5 Normal Abduction 4+ Good+ External Rotation 5 Normal Internal Rotation 4 Good Comments WNL Knee strength Left Flexion (L2) 4+ Good+ External Rotation 4 Good Internal Rotation 4- Good- PT-OP-Q Treatments Start: 12/05/17 08:49 Freq: Status: Active Protocol: Document 02/24/18 11:15 AMB (Rec: 02/24/18 15:26 AMB [email or web address]) Cardio Equipment Recumbent Stepper (Sci-Fit) Duration (Minutes) 6 Resistance 4 Therapeutic Exercises Supine Exercises 5 Supine Exercise Name single push on leg with opposite hand Side bilateral Reps/Minutes 30 sec. each 2 Supine Exercise Name bridging Side bilateral Resistance ball 55cm Reps/Minutes 15 1 Supine Exercise Name LTR Side bilateral Resistance ball Comments cues to not push into pain, limit motion to painfree Sidelying Exercises 2 Sidelying Exercise Name clamshells Side bilateral Reps/Minutes 10 Standing Exercises 4 Standing Exercise Name SLR Reps/Minutes 2x10 Comments with TrA stabilization Manual Therapy Treatment Soft Tissue Mobilization 1 Body Location QL & lumbar paraspinals Mobilization Type Rolling Intensity/Depth Moderate Body Position Prone PT-OP-R Modalities Start: 12/05/17 08:49 Freq: Status: Active Protocol: Document 02/24/18 11:15 AMB (Rec: 02/24/18 15:26 AMB [email or web address]) Hot Pack/Cold Pack Treatment Hot Pack Location lumbar Patient Position Prone Treatment Duration (minutes) 10 PT-OP-T Assessment and Plan Start: 12/05/17 08:49 Freq: Status: Active Protocol: Document 02/24/18 11:15 AMB (Rec: 02/24/18 15:26 AMB [email or web address]) Physical Therapy Assessment Goals Four Impairment activities Short Term Goal (STG) Pt will demonstrate good lifting mechanics & will have an ergonomically correct desk set up. STG Duration 03/06/18-improving, Has setup desk Driver License Technician Goal (LTG) Pt will be able to garden, lift and do long walks without pain. LTG Duration 04/05/18 Three Impairment bed mobility Driver License Technician Goal (LTG) Pt will be able to do all bed mobility without pain LTG Duration 03/07/18-improving MIld pain with log roll. Two Impairment core stability/strength Short Term Goal (STG) Pt will be indep with HEP STG Duration 01/05/18-advancing HEP Driver License Technician Goal (LTG) 5/5 LE strength, EFT, VCT & LPM to demonstrate improved stability and to allow pt to return to normal activities LTG Duration 04/06/18 One Impairment pain Short Term Goal (STG) Constant pain to 1/10 STG Duration achieved Driver License Technician Goal (LTG) worst pain to 2/10 LTG Duration 04/06/18 Assessment Summary Assessment Progress body mechanics trianing at next visit, did not today due to increase sx. Physical Therapy Plan Frequency and Duration Frequency of Treatment 2x/Week Duration of Treatment 2 months Plan of Care Start Date 02/03/18 Plan of Care End Date 04/05/18 Next Visit Focus/Plan Next Note Type Treatment Note Next Visit Plan Progress hip ABD strength training/core strengthening. Re-evaluate squat technique.
--- NOTE | 2018-03-03 16:16 | PT.OTN ---
Current Diagnoses Other chronic pain (03/03/18) Pain in thoracic spine (03/03/18) Physical Therapy Treatment Note PT-OP-A Visit Information Start: 12/05/17 08:49 Freq: Status: Active Protocol: Document 03/03/18 11:15 AMB (Rec: 03/03/18 11:41 AMB [id number]) Out-Patient Physical Therapy Visit Information Visit Information Visit Type Treatment Note Visit Start Time 11:15 Visit Stop Time 12:00 Visit Number 14 Number of DIRECTOR OF GOLF Visits 0 Evaluation Information Evaluation Date 12/05/17 PT-OP-B Current Condition Start: 12/05/17 08:49 Freq: Status: Active Protocol: Document 12/05/17 09:50 LR (Rec: 12/05/17 15:21 LR [email or web address]) Current Condition History of Current Condition Onset Date May-June 2017 Current Complaints L upper lumbar through thoracic to neck L>R History of Current Condition Pt c/o mostly L lower thoracic pain that she says starts at L upper lumbar and radiates up to L cervical region, and can be painful on both sides. Reports it is mostly more annoying that painful, except when rolling. Pt reports she hears a clicking in her neck also. She has not tried icing for pain relief. Pt reports she walks daily, but has avoided distance w/walks d/t pain and puts of her daily activities. 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 A long car ride is still challenging. PT-OP-F Manual Assessment Start: 12/05/17 08:49 Freq: Status: Active Protocol: Document 12/05/17 09:50 LR (Rec: 12/05/17 10:36 LR [id number]) Manual Assessments Joint Mobility Assessment Joint Mobility Assessment Equal greater trochanters & iliac crest height. PT-OP-G Mobility & Gait Start: 12/05/17 08:49 Freq: Status: Active Protocol: Document 12/05/17 09:50 [facility] (Rec: 12/05/17 10:36 [facility] [id number]) OP Gait Assessment Comments Gait Comments Dec B hip ext and dec UE arm swing. Overall dec post depression & ant elevation of pelvis. PT-OP-J Posture/Palpation/Skin Start: 12/05/17 08:49 Freq: Status: Active Protocol: Document 02/03/18 12:00 GGD (Rec: 02/03/18 15:59 GGD [email or web address]) Posture Evaluation Agustin Postural Classification System Agustin Postural Classifications Anterior/Posterior Vertebral Compression Test 2 Elbow Flexion Test 1 Lumbar Protective Mechanism Left AP 0 Lumbar Protective Mechanism Right AP 1 Lumbar Protective Mechanism Left PA 1 Lumbar Protective Mechanism Right PA 1 Leg Swing Left Limited Leg Swing Right Limited PT-OP-K Range of Motion Start: 12/05/17 08:49 Freq: Status: Active Protocol: Document 12/05/17 09:50 [facility] (Rec: 12/05/17 10:36 [facility] [id number]) Cervical Spine Range of Motion Cervical Spine Active Degrees Testing Position Sitting Flexion 63 Extension 40 Rotation Left 50 Rotation Right 44 Lateral Flexion Left 22 Lateral Flexion Right 18 Comments pain w/ flex & ipsilateral pain w/SB Lumbar Spine Range of Motion Lumbar Spine Active Degrees Flexion 75 Extension 12 Rotation Left 23 Rotation Right 32 Lateral Flexion Left 20 Lateral Flexion Right 25 Comments pain w/ ext; pain w/ L side bend PT-OP-L Special Tests Start: 12/05/17 08:49 Freq: Status: Active Protocol: Document 12/05/17 09:50 [facility] (Rec: 12/05/17 10:36 [facility] [id number]) Special Tests Cervical Spine Special Tests Vertebral Artery Test Results neg B Spurling's Test Test Results positive Lumbar Spine Special Tests Straight Leg Raise Test Results positive B with pain into L thoracic region Slump Test Results neg B PT-OP-M Strength Start: 12/05/17 08:49 Freq: Status: Active Protocol: Document 02/03/18 12:00 GGD (Rec: 02/03/18 15:59 GGD [email or web address]) Hip Strength Hip Manual Muscle Testing Right Flexion (L2) 5 Normal Abduction 4+ Good+ External Rotation 5 Normal Internal Rotation 4 Good Comments WNL Knee strength Left Flexion (L2) 4+ Good+ External Rotation 4 Good Internal Rotation 4- Good- PT-OP-Q Treatments Start: 12/05/17 08:49 Freq: Status: Active Protocol: Document 03/03/18 11:15 AMB (Rec: 03/03/18 16:16 AMB [email or web address]) Cardio Equipment Recumbent Stepper (Sci-Fit) Duration (Minutes) 6 Resistance 4 Therapeutic Exercises Supine Exercises 5 Supine Exercise Name single push on leg with opposite hand Side bilateral Reps/Minutes 30 sec. each 2 Supine Exercise Name bridging Side bilateral Resistance ball 55cm Reps/Minutes 15 1 Supine Exercise Name LTR Side bilateral Resistance ball Comments cues to not push into pain, limit motion to painfree Sidelying Exercises 2 Sidelying Exercise Name clamshells Side bilateral Reps/Minutes 10 Standing Exercises 4 Standing Exercise Name SLR Reps/Minutes 2x10 Comments with TrA stabilization Other Exercises 4 Other Exercise Name quadruped leg extension Reps/Minutes 2x10 3 Other Exercise Name prone press up Reps/Minutes 30x2 2 Other Exercise Name modified plank Reps/Minutes 15x4 Comments forearms and kneeling PT-OP-R Modalities Start: 12/05/17 08:49 Freq: Status: Active Protocol: Document 03/03/18 11:15 AMB (Rec: 03/03/18 16:16 AMB [email or web address]) Hot Pack/Cold Pack Treatment Hot Pack Location lumbar Patient Position Prone Treatment Duration (minutes) 10 PT-OP-T Assessment and Plan Start: 12/05/17 08:49 Freq: Status: Active Protocol: Document 03/03/18 11:15 AMB (Rec: 03/03/18 16:16 AMB [email or web address]) Physical Therapy Assessment Assessment Summary Assessment Re-evaluated squat and pt continues to use too much lumbar lordosis, continue to cue and add in weights. Physical Therapy Plan Frequency and Duration Frequency of Treatment 2x/Week Duration of Treatment 2 months Plan of Care Start Date 02/03/18 Plan of Care End Date 04/05/18 Next Visit Focus/Plan Next Note Type Treatment Note Next Visit Plan Progress hip ABD strength training/core strengthening. Re-evaluate squat technique/ lifting technique.
--- NOTE | 2018-03-10 15:52 | PT.OTN ---
Current Diagnoses Other chronic pain (03/10/18) Pain in thoracic spine (03/10/18) Physical Therapy Treatment Note PT-OP-A Visit Information Start: 12/05/17 08:49 Freq: Status: Active Protocol: Document 03/10/18 14:30 AMB (Rec: 03/10/18 14:41 AMB [id number]) Out-Patient Physical Therapy Visit Information Visit Information Visit Type Treatment Note Visit Start Time 11:15 Visit Stop Time 12:00 Visit Number 15 Number of CPS TEAM LEAD Visits 0 Evaluation Information Evaluation Date 12/05/17 PT-OP-B Current Condition Start: 12/05/17 08:49 Freq: Status: Active Protocol: Document 12/05/17 09:50 LR (Rec: 12/05/17 15:21 [facility] [email or web address]) Current Condition History of Current Condition Onset Date May-June 2017 Current Complaints L upper lumbar through thoracic to neck L>R History of Current Condition Pt c/o mostly L lower thoracic pain that she says starts at L upper lumbar and radiates up to L cervical region, and can be painful on both sides. Reports it is mostly more annoying that painful, except when rolling. Pt reports she hears a clicking in her neck also. She has not tried icing for pain relief. Pt reports she walks daily, but has avoided distance w/walks d/t pain and puts of her daily activities. 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 PT-OP-F Manual Assessment Start: 12/05/17 08:49 Freq: Status: Active Protocol: Document 12/05/17 09:50 LR (Rec: 12/05/17 10:36 LR [id number]) Manual Assessments Joint Mobility Assessment Joint Mobility Assessment Equal greater trochanters & iliac crest height. PT-OP-G Mobility & Gait Start: 12/05/17 08:49 Freq: Status: Active Protocol: Document 12/05/17 09:50 [facility] (Rec: 12/05/17 10:36 [facility] [id number]) OP Gait Assessment Comments Gait Comments Dec B hip ext and dec UE arm swing. Overall dec post depression & ant elevation of pelvis. PT-OP-J Posture/Palpation/Skin Start: 12/05/17 08:49 Freq: Status: Active Protocol: Document 02/03/18 12:00 GGD (Rec: 02/03/18 15:59 GGD [email or web address]) Posture Evaluation Agustin Postural Classification System Agustin Postural Classifications Anterior/Posterior Vertebral Compression Test 2 Elbow Flexion Test 1 Lumbar Protective Mechanism Left AP 0 Lumbar Protective Mechanism Right AP 1 Lumbar Protective Mechanism Left PA 1 Lumbar Protective Mechanism Right PA 1 Leg Swing Left Limited Leg Swing Right Limited PT-OP-K Range of Motion Start: 12/05/17 08:49 Freq: Status: Active Protocol: Document 12/05/17 09:50 [facility] (Rec: 12/05/17 10:36 [facility] [id number]) Cervical Spine Range of Motion Cervical Spine Active Degrees Testing Position Sitting Flexion 63 Extension 40 Rotation Left 50 Rotation Right 44 Lateral Flexion Left 22 Lateral Flexion Right 18 Comments pain w/ flex & ipsilateral pain w/SB Lumbar Spine Range of Motion Lumbar Spine Active Degrees Flexion 75 Extension 12 Rotation Left 23 Rotation Right 32 Lateral Flexion Left 20 Lateral Flexion Right 25 Comments pain w/ ext; pain w/ L side bend PT-OP-L Special Tests Start: 12/05/17 08:49 Freq: Status: Active Protocol: Document 12/05/17 09:50 [facility] (Rec: 12/05/17 10:36 [facility] [id number]) Special Tests Cervical Spine Special Tests Vertebral Artery Test Results neg B Spurling's Test Test Results positive Lumbar Spine Special Tests Straight Leg Raise Test Results positive B with pain into L thoracic region Slump Test Results neg B PT-OP-M Strength Start: 12/05/17 08:49 Freq: Status: Active Protocol: Document 02/03/18 12:00 GGD (Rec: 02/03/18 15:59 GGD [email or web address]) Hip Strength Hip Manual Muscle Testing Right Flexion (L2) 5 Normal Abduction 4+ Good+ External Rotation 5 Normal Internal Rotation 4 Good Comments WNL Knee strength Left Flexion (L2) 4+ Good+ External Rotation 4 Good Internal Rotation 4- Good- PT-OP-Q Treatments Start: 12/05/17 08:49 Freq: Status: Active Protocol: Document 03/10/18 14:30 AMB (Rec: 03/10/18 15:51 AMB [email or web address]) Cardio Equipment Recumbent Stepper (Sci-Fit) Duration (Minutes) 6 Resistance 4 Therapeutic Exercises Supine Exercises 5 Supine Exercise Name single push on leg with opposite hand Side bilateral Reps/Minutes 30 sec. each 1 Supine Exercise Name LTR Side bilateral Resistance ball Comments cues to not push into pain, limit motion to painfree Sidelying Exercises 2 Sidelying Exercise Name clamshells Side bilateral Reps/Minutes 10 Other Exercises 1 Other Exercise Name thread the needle Reps/Minutes 2x10 Manual Therapy Treatment Soft Tissue Mobilization 1 Body Location QL & lumbar paraspinals Mobilization Type Rolling Intensity/Depth Moderate Body Position Prone Joint Mobilizations 3 Joint Thoracic PAs PT-OP-R Modalities Start: 12/05/17 08:49 Freq: Status: Active Protocol: Document 03/10/18 14:30 AMB (Rec: 03/10/18 15:52 AMB [email or web address]) Hot Pack/Cold Pack Treatment Hot Pack Location lumbar Patient Position Prone Treatment Duration (minutes) 10 PT-OP-T Assessment and Plan Start: 12/05/17 08:49 Freq: Status: Active Protocol: Document 03/10/18 14:30 AMB (Rec: 03/10/18 15:51 AMB [email or web address]) Physical Therapy Assessment Assessment Summary Assessment Pt with discomfort with higher thoracic rotation today. Better after manual therapy, but pt did not tolerate foam roll or towel roll. Physical Therapy Plan Frequency and Duration Frequency of Treatment 2x/Week Duration of Treatment 2 months Plan of Care Start Date 02/03/18 Plan of Care End Date 04/05/18 Next Visit Focus/Plan Next Note Type Treatment Note Next Visit Plan Reassess thoracic rotation
--- NOTE | 2018-03-17 12:58 | PT.OTN ---
Current Diagnoses Other chronic pain (03/17/18) Pain in thoracic spine (03/17/18) Physical Therapy Treatment Note PT-OP-A Visit Information Start: 12/05/17 08:49 Freq: Status: Active Protocol: Document 03/17/18 10:15 AMB (Rec: 03/17/18 10:29 AMB [id number]) Out-Patient Physical Therapy Visit Information Visit Information Visit Type Treatment Note Visit Start Time 11:15 Visit Stop Time 12:00 Visit Number 16 Number of RESIDENT CARE COORDINATOR Visits 0 Evaluation Information Evaluation Date 12/05/17 PT-OP-B Current Condition Start: 12/05/17 08:49 Freq: Status: Active Protocol: Document 12/05/17 09:50 [facility] (Rec: 12/05/17 15:21 [facility] [id number]) Current Condition History of Current Condition Onset Date May-June 2017 Current Complaints L upper lumbar through thoracic to neck L>R History of Current Condition Pt c/o mostly L lower thoracic pain that she says starts at L upper lumbar and radiates up to L cervical region, and can be painful on both sides. Reports it is mostly more annoying that painful, except when rolling. Pt reports she hears a clicking in her neck also. She has not tried icing for pain relief. Pt reports she walks daily, but has avoided distance w/walks d/t pain and puts of her daily activities. 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 PT-OP-F Manual Assessment Start: 12/05/17 08:49 Freq: Status: Active Protocol: Document 12/05/17 09:50 [facility] (Rec: 12/05/17 10:36 [facility] [id number]) Manual Assessments Joint Mobility Assessment Joint Mobility Assessment Equal greater trochanters & iliac crest height. PT-OP-G Mobility & Gait Start: 12/05/17 08:49 Freq: Status: Active Protocol: Document 12/05/17 09:50 [facility] (Rec: 12/05/17 10:36 [facility] [id number]) OP Gait Assessment Comments Gait Comments Dec B hip ext and dec UE arm swing. Overall dec post depression & ant elevation of pelvis. PT-OP-J Posture/Palpation/Skin Start: 12/05/17 08:49 Freq: Status: Active Protocol: Document 02/03/18 12:00 GGD (Rec: 02/03/18 15:59 GGD [id number]) Posture Evaluation Agustin Postural Classification System Agustin Postural Classifications Anterior/Posterior Vertebral Compression Test 2 Elbow Flexion Test 1 Lumbar Protective Mechanism Left AP 0 Lumbar Protective Mechanism Right AP 1 Lumbar Protective Mechanism Left PA 1 Lumbar Protective Mechanism Right PA 1 Leg Swing Left Limited Leg Swing Right Limited PT-OP-K Range of Motion Start: 12/05/17 08:49 Freq: Status: Active Protocol: Document 12/05/17 09:50 [facility] (Rec: 12/05/17 10:36 [facility] [id number]) Cervical Spine Range of Motion Cervical Spine Active Degrees Testing Position Sitting Flexion 63 Extension 40 Rotation Left 50 Rotation Right 44 Lateral Flexion Left 22 Lateral Flexion Right 18 Comments pain w/ flex & ipsilateral pain w/SB Lumbar Spine Range of Motion Lumbar Spine Active Degrees Flexion 75 Extension 12 Rotation Left 23 Rotation Right 32 Lateral Flexion Left 20 Lateral Flexion Right 25 Comments pain w/ ext; pain w/ L side bend PT-OP-L Special Tests Start: 12/05/17 08:49 Freq: Status: Active Protocol: Document 12/05/17 09:50 [facility] (Rec: 12/05/17 10:36 [facility] [id number]) Special Tests Cervical Spine Special Tests Vertebral Artery Test Results neg B Spurling's Test Test Results positive Lumbar Spine Special Tests Straight Leg Raise Test Results positive B with pain into L thoracic region Slump Test Results neg B PT-OP-M Strength Start: 12/05/17 08:49 Freq: Status: Active Protocol: Document 02/03/18 12:00 GGD (Rec: 02/03/18 15:59 GGD [id number]) Hip Strength Hip Manual Muscle Testing Right Flexion (L2) 5 Normal Abduction 4+ Good+ External Rotation 5 Normal Internal Rotation 4 Good Comments WNL Knee strength Left Flexion (L2) 4+ Good+ External Rotation 4 Good Internal Rotation 4- Good- PT-OP-Q Treatments Start: 12/05/17 08:49 Freq: Status: Active Protocol: Document 03/17/18 10:15 AMB (Rec: 03/17/18 10:29 AMB [id number]) Cardio Equipment Recumbent Stepper (Sci-Fit) Duration (Minutes) 6 Resistance 4 Therapeutic Exercises Supine Exercises 1 Supine Exercise Name LTR Side bilateral Resistance ball Comments cues to not push into pain, limit motion to painfree Sidelying Exercises 2 Sidelying Exercise Name clamshells Side bilateral Reps/Minutes 10 Standing Exercises 4 Standing Exercise Name SLR Reps/Minutes 2x10 Comments with TrA stabilization Other Exercises 4 Other Exercise Name quadruped leg extension Reps/Minutes 2x10 1 Other Exercise Name thread the needle Reps/Minutes 2x10 Manual Therapy Treatment Soft Tissue Mobilization 2 Body Location paraspinals Mobilization Type Rolling Intensity/Depth Moderate Body Position Prone Joint Mobilizations 3 Joint Thoracic PAs Grade II Body Position Prone PT-OP-R Modalities Start: 12/05/17 08:49 Freq: Status: Active Protocol: Document 03/17/18 10:15 AMB (Rec: 03/17/18 10:29 AMB [id number]) Hot Pack/Cold Pack Treatment Hot Pack Location lumbar Patient Position Prone Treatment Duration (minutes) 10 PT-OP-T Assessment and Plan Start: 12/05/17 08:49 Freq: Status: Active Protocol: Document 03/17/18 10:15 AMB (Rec: 03/17/18 12:54 AMB [id number]) Physical Therapy Assessment Assessment Summary Assessment Pt is in a pain flare. Bilateral thoracic pain especially with bed mobility. Reviewed squat, lunge and log roll form which needed adjusting to avoid poor form. Physical Therapy Plan Next Visit Focus/Plan Next Note Type Treatment Note Next Visit Plan Reassess form with functional lifting, squatting.
--- NOTE | 2018-03-24 12:04 | PT.OTN ---
Current Diagnoses Other chronic pain (03/24/18) Pain in thoracic spine (03/24/18) Physical Therapy Treatment Note PT-OP-A Visit Information Start: 12/05/17 08:49 Freq: Status: Active Protocol: Document 03/24/18 11:20 [facility] (Rec: 03/24/18 12:04 [facility] [id number]) Out-Patient Physical Therapy Visit Information Visit Information Visit Type Treatment Note Visit Start Time 11:18 Visit Stop Time 12:15 Visit Number 17 Number of MANAGER NEW PRODUCT Visits 0 PT-OP-B Current Condition Start: 12/05/17 08:49 Freq: Status: Active Protocol: Document 12/05/17 09:50 [facility] (Rec: 12/05/17 15:21 [facility] [id number]) Current Condition History of Current Condition Onset Date May-June 2017 Current Complaints L upper lumbar through thoracic to neck L>R History of Current Condition Pt c/o mostly L lower thoracic pain that she says starts at L upper lumbar and radiates up to L cervical region, and can be painful on both sides. Reports it is mostly more annoying that painful, except when rolling. Pt reports she hears a clicking in her neck also. She has not tried icing for pain relief. Pt reports she walks daily, but has avoided distance w/walks d/t pain and puts of her daily activities. 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 (Rec: 03/24/18 12:04 [facility] [id number]) OP-PT Subjective Patient Comments Patient Comments Pt reports today is much better than it was in the last week. PT-OP-F Manual Assessment Start: 12/05/17 08:49 Freq: Status: Active Protocol: Document 12/05/17 09:50 [facility] (Rec: 12/05/17 10:36 [facility] [id number]) Manual Assessments Joint Mobility Assessment Joint Mobility Assessment Equal greater trochanters & iliac crest height. PT-OP-G Mobility & Gait Start: 12/05/17 08:49 Freq: Status: Active Protocol: Document 12/05/17 09:50 [facility] (Rec: 12/05/17 10:36 [facility] [id number]) OP Gait Assessment Comments Gait Comments Dec B hip ext and dec UE arm swing. Overall dec post depression & ant elevation of pelvis. PT-OP-J Posture/Palpation/Skin Start: 12/05/17 08:49 Freq: Status: Active Protocol: Document 02/03/18 12:00 [facility]GD (Rec: 02/03/18 15:59 GGD [id number]) Posture Evaluation Agustin Postural Classification System Agustin Postural Classifications Anterior/Posterior Vertebral Compression Test 2 Elbow Flexion Test 1 Lumbar Protective Mechanism Left AP 0 Lumbar Protective Mechanism Right AP 1 Lumbar Protective Mechanism Left PA 1 Lumbar Protective Mechanism Right PA 1 Leg Swing Left Limited Leg Swing Right Limited PT-OP-K Range of Motion Start: 12/05/17 08:49 Freq: Status: Active Protocol: Document 12/05/17 09:50 [facility] (Rec: 12/05/17 10:36 [facility] [id number]) Cervical Spine Range of Motion Cervical Spine Active Degrees Testing Position Sitting Flexion 63 Extension 40 Rotation Left 50 Rotation Right 44 Lateral Flexion Left 22 Lateral Flexion Right 18 Comments pain w/ flex & ipsilateral pain w/SB Lumbar Spine Range of Motion Lumbar Spine Active Degrees Flexion 75 Extension 12 Rotation Left 23 Rotation Right 32 Lateral Flexion Left 20 Lateral Flexion Right 25 Comments pain w/ ext; pain w/ L side bend PT-OP-L Special Tests Start: 12/05/17 08:49 Freq: Status: Active Protocol: Document 12/05/17 09:50 [facility] (Rec: 12/05/17 10:36 [facility] [id number]) Special Tests Cervical Spine Special Tests Vertebral Artery Test Results neg B Spurling's Test Test Results positive Lumbar Spine Special Tests Straight Leg Raise Test Results positive B with pain into L thoracic region Slump Test Results neg B PT-OP-M Strength Start: 12/05/17 08:49 Freq: Status: Active Protocol: Document 02/03/18 12:00 [facility] (Rec: 02/03/18 15:59 [facility]GD [email or web address]) Hip Strength Hip Manual Muscle Testing Right Flexion (L2) 5 Normal Abduction 4+ Good+ External Rotation 5 Normal Internal Rotation 4 Good Comments WNL Knee strength Left Flexion (L2) 4+ Good+ External Rotation 4 Good Internal Rotation 4- Good- PT-OP-Q Treatments Start: 12/05/17 08:49 Freq: Status: Active Protocol: Document 03/24/18 11:20 [facility] (Rec: 03/24/18 12:04 [facility] [id number]) Cardio Equipment Recumbent Stepper (Sci-Fit) Duration (Minutes) 6 Resistance 5 Therapeutic Exercises Standing Exercises 2 Standing Exercise Name lunge Comments in mirror 1 Standing Exercise Name squat Reps/Minutes 30 Comments over chair Other Exercises 4 Other Exercise Name quadruped leg extension Reps/Minutes 2x10 3 Other Exercise Name cat/camel Therapeutic Activity Therapeutic Activity Lifting Name lift Comments edu and review for lifting off the ground Manual Therapy Treatment Soft Tissue Mobilization 1 Body Location QL & lumbar paraspinals Mobilization Type Rolling Intensity/Depth Moderate Body Position Prone Joint Mobilizations 2 Joint innominate Direction ER FM PT-OP-R Modalities Start: 12/05/17 08:49 Freq: Status: Active Protocol: Document 03/24/18 11:20 [facility] (Rec: 03/24/18 12:04 [facility] [id number]) Hot Pack/Cold Pack Treatment Hot Pack Location lumbar Patient Position Prone Treatment Duration (minutes) 15 PT-OP-T Assessment and Plan Start: 12/05/17 08:49 Freq: Status: Active Protocol: Document 03/24/18 11:20 [facility] (Rec: 03/24/18 12:04 [facility] [id number]) Physical Therapy Assessment Goals Four Impairment activities Short Term Goal (STG) Pt will demonstrate good lifting mechanics & will have an ergonomically correct desk set up. STG Duration 03/06/18-improving, Has setup desk Mini Bar Attendant Goal (LTG) Pt will be able to garden, lift and do long walks without pain. LTG Duration 04/05/18 Three Impairment bed mobility Senior Care Goal (LTG) Pt will be able to do all bed mobility without pain LTG Duration 03/07/18-improving MIld pain with log roll. Two Impairment core stability/strength Short Term Goal (STG) Pt will be indep with HEP STG Duration 01/05/18-advancing HEP Senior Care Goal (LTG) 5/5 LE strength, EFT, VCT & LPM to demonstrate improved stability and to allow pt to return to normal activities LTG Duration 04/06/18 One Impairment pain Short Term Goal (STG) Constant pain to 1/10 STG Duration achieved Senior Care Goal (LTG) worst pain to 2/10 LTG Duration 04/06/18 Assessment Summary Assessment Exercises required cueing for form with all exercises. Required some cueing to avoid thoracic flex at end range of bending to lift. Physical Therapy Plan Frequency and Duration Frequency of Treatment 2x/Week Duration of Treatment 2 months Plan of Care Start Date 02/03/18 Plan of Care End Date 04/05/18 Next Visit Focus/Plan Next Note Type Progress Note Next Visit Plan Re-assess limitations
--- NOTE | 2018-03-31 17:05 | PT.OTN ---
Current Diagnoses Other chronic pain (03/31/18) Pain in thoracic spine (03/31/18) Physical Therapy Treatment Note PT-OP-A Visit Information Start: 12/05/17 08:49 Freq: Status: Active Protocol: Document 03/31/18 11:23 [facility] (Rec: 03/31/18 13:22 [facility] [id number]) Out-Patient Physical Therapy Visit Information Visit Information Visit Type Treatment Note Visit Start Time 11:20 Visit Stop Time 12:15 Total Visit Minutes 55 Visit Number 18 Number of OFFSET SECOND PRESS OPERATOR Visits 0 PT-OP-B Current Condition Start: 12/05/17 08:49 Freq: Status: Active Protocol: Document 12/05/17 09:50 [facility] (Rec: 12/05/17 15:21 [facility] [id number]) Current Condition History of Current Condition Onset Date May-June 2017 Current Complaints L upper lumbar through thoracic to neck L>R History of Current Condition Pt c/o mostly L lower thoracic pain that she says starts at L upper lumbar and radiates up to L cervical region, and can be painful on both sides. Reports it is mostly more annoying that painful, except when rolling. Pt reports she hears a clicking in her neck also. She has not tried icing for pain relief. Pt reports she walks daily, but has avoided distance w/walks d/t pain and puts of her daily activities. 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 She had one day that there was no pain. PT-OP-F Manual Assessment Start: 12/05/17 08:49 Freq: Status: Active Protocol: Document 12/05/17 09:50 [facility] (Rec: 12/05/17 10:36 [facility] [id number]) Manual Assessments Joint Mobility Assessment Joint Mobility Assessment Equal greater trochanters & iliac crest height. PT-OP-G Mobility & Gait Start: 12/05/17 08:49 Freq: Status: Active Protocol: Document 12/05/17 09:50 [facility] (Rec: 12/05/17 10:36 [facility] [id number]) OP Gait Assessment Comments Gait Comments Dec B hip ext and dec UE arm swing. Overall dec post depression & ant elevation of pelvis. PT-OP-J Posture/Palpation/Skin Start: 12/05/17 08:49 Freq: Status: Active Protocol: Document 02/03/18 12:00 [facility] (Rec: 02/03/18 15:59 [facility] [id number]) Posture Evaluation Agustin Postural Classification System Agustin Postural Classifications Anterior/Posterior Vertebral Compression Test 2 Elbow Flexion Test 1 Lumbar Protective Mechanism Left AP 0 Lumbar Protective Mechanism Right AP 1 Lumbar Protective Mechanism Left PA 1 Lumbar Protective Mechanism Right PA 1 Leg Swing Left Limited Leg Swing Right Limited PT-OP-K Range of Motion Start: 12/05/17 08:49 Freq: Status: Active Protocol: Document 12/05/17 09:50 [facility] (Rec: 12/05/17 10:36 [facility] [id number]) Cervical Spine Range of Motion Cervical Spine Active Degrees Testing Position Sitting Flexion 63 Extension 40 Rotation Left 50 Rotation Right 44 Lateral Flexion Left 22 Lateral Flexion Right 18 Comments pain w/ flex & ipsilateral pain w/SB Lumbar Spine Range of Motion Lumbar Spine Active Degrees Flexion 75 Extension 12 Rotation Left 23 Rotation Right 32 Lateral Flexion Left 20 Lateral Flexion Right 25 Comments pain w/ ext; pain w/ L side bend PT-OP-L Special Tests Start: 12/05/17 08:49 Freq: Status: Active Protocol: Document 12/05/17 09:50 [facility] (Rec: 12/05/17 10:36 [facility] [id number]) Special Tests Cervical Spine Special Tests Vertebral Artery Test Results neg B Spurling's Test Test Results positive Lumbar Spine Special Tests Straight Leg Raise Test Results positive B with pain into L thoracic region Slump Test Results neg B PT-OP-M Strength Start: 12/05/17 08:49 Freq: Status: Active Protocol: Document 03/31/18 11:23 [facility] (Rec: 03/31/18 17:05 [facility] [id number]) Hip Strength Hip Manual Muscle Testing Right Flexion (L2) 5 Normal Extension (S1) 4 Good Abduction 5 Normal External Rotation 5 Normal Internal Rotation 5 Normal Left Flexion (L2) 5 Normal Extension (S1) 4 Good Abduction 5 Normal External Rotation 4+ Good+ Internal Rotation 4 Good Knee Strength Knee Manual Muscle Testing Right Flexion (S2) 5 Normal Extension (L3) 5 Normal Left Flexion (S2) 5 Normal Extension (L3) 5 Normal PT-OP-Q Treatments Start: 12/05/17 08:49 Freq: Status: Active Protocol: Document 03/31/18 11:23 [facility] (Rec: 03/31/18 17:04 [facility] [id number]) Therapeutic Exercises Supine Exercises 5 Supine Exercise Name single push on leg with opposite hand Side bilateral Reps/Minutes 30 sec. each 4 Supine Exercise Name SLR Side bilateral Comments focus on core 3 Supine Exercise Name Leg ext with alt leg in ext Comments focus on TAbd contraction Standing Exercises gait press at wall Standing Exercise Name gait at wall Side bilateral 4 Standing Exercise Name wall posture 2 Standing Exercise Name lunge Comments in mirror 1 Standing Exercise Name squat Reps/Minutes 30 Comments over chair Gait Training Gait Activity gait in shelley Description walking with focus on push off and ant elevation with cueing facilitated gait Description facilitated ant elevation Manual Therapy Treatment Soft Tissue Mobilization 1 Body Location QL & lumbar paraspinals Mobilization Type Rolling Intensity/Depth Moderate Body Position Prone PT-OP-R Modalities Start: 12/05/17 08:49 Freq: Status: Active Protocol: Document 03/31/18 11:23 [facility] (Rec: 03/31/18 13:22 [facility] [id number]) Hot Pack/Cold Pack Treatment Hot Pack Location lumbar Patient Position Prone Treatment Duration (minutes) 15 PT-OP-T Assessment and Plan Start: 12/05/17 08:49 Freq: Status: Active Protocol: Document 03/31/18 11:23 [facility] (Rec: 03/31/18 12:28 [facility] [id number]) Physical Therapy Assessment Impairments Impairments Activity Tolerance Balance Functional Activities Functional Mobility Gait Pain Posture ROM Soft Tissue Mobility Strength Goals Four Impairment activities Short Term Goal (STG) Pt will demonstrate good lifting mechanics & will have an ergonomically correct desk set up. STG Duration 03/06/18-improving, Has setup desk Halfway Goal (LTG) Pt will be able to garden, lift and do long walks without pain. LTG Duration 05/06/18- able to do some long walks Three Impairment bed mobility Early Education Teacher Goal (LTG) Pt will be able to do all bed mobility without pain LTG Duration 9-improving MIld pain with log roll occasionally. Two Impairment core stability/strength Short Term Goal (STG) Pt will be indep with HEP STG Duration 01/05/18-advancing HEP Early Education Teacher Goal (LTG) 5/5 LE strength, EFT, VCT & LPM to demonstrate improved stability and to allow pt to return to normal activities LTG Duration 05/07/18 One Impairment pain Short Term Goal (STG) Constant pain to 1/10 STG Duration achieved Halfway Goal (LTG) worst pain to 2/10 LTG Duration achieved Assessment Summary Assessment Pt is improving with mechanics but still requires cueing. She cont ot have significant curvature in thoracic spine that likely contributes to her cont pain d/t inc movement occuring at TL junctions. Physical Therapy Plan Frequency and Duration Frequency of Treatment 1-2x/Week Duration of Treatment 2 months Plan of Care Start Date 03/31/18 Plan of Care End Date 06/01/18 Therapeutic Interventions Therapeutic Interventions Aquatic Therapy Balance Training Gait Training Home Exercise Program Joint Mobilizations Manual Therapy Soft Tissue Mobilization Taping Therapeutic Activities Therapeutic Exercises Modalities Cold Pack/Ice Massage Electric Stimulation Hot Packs Traction- Mechanical Ultrasound Next Visit Focus/Plan Next Note Type Treatment Note Next Visit Plan Work on progressing core exercises.
--- NOTE | 2018-03-31 17:05 | PT.OPPOC ---
Current Diagnoses Other chronic pain (03/31/18) Pain in thoracic spine (03/31/18) Provider Visit Care Team Role Provider Type Maricarmen Ramos DO Family Provider Physician Primary Care Provider Specialty: Family Practice Address: [address] [place] [address], [id number] Email: [email or web address] Davis MD Attending Provider Physician Specialty: Internal Medicine Address: [address] [place] [address], [id number] Email: Plan Of Care PT-OP-T Assessment and Plan Start: 12/05/17 08:49 Freq: Status: Active Protocol: Document 03/31/18 11:23 [facility] (Rec: 03/31/18 12:28 [facility] [id number]) Physical Therapy Assessment Impairments Impairments Activity Tolerance Balance Functional Activities Functional Mobility Gait Pain Posture ROM Soft Tissue Mobility Strength Goals Four Impairment activities Short Term Goal (STG) Pt will demonstrate good lifting mechanics & will have an ergonomically correct desk set up. STG Duration 03/06/18-improving, Has setup desk [facility] Goal (LTG) Pt will be able to garden, lift and do long walks without pain. LTG Duration 05/06/18- able to do some long walks Three Impairment bed mobility Cloud Developer Goal (LTG) Pt will be able to do all bed mobility without pain LTG Duration 9-improving MIld pain with log roll occasionally. Two Impairment core stability/strength Short Term Goal (STG) Pt will be indep with HEP STG Duration 01/05/18-advancing HEP [facility] Goal (LTG) 5/5 LE strength, EFT, VCT & LPM to demonstrate improved stability and to allow pt to return to normal activities LTG Duration 05/07/18 One Impairment pain Short Term Goal (STG) Constant pain to 1/10 STG Duration achieved Cloud Developer Goal (LTG) worst pain to 2/10 LTG Duration achieved Assessment Summary Assessment Pt is improving with mechanics but still requires cueing. She cont ot have significant curvature in thoracic spine that likely contributes to her cont pain d/t inc movement occuring at TL junctions. Physical Therapy Plan Frequency and Duration Frequency of Treatment 1-2x/Week Duration of Treatment 2 months Plan of Care Start Date 03/31/18 Plan of Care End Date 06/01/18 Therapeutic Interventions Therapeutic Interventions Aquatic Therapy Balance Training Gait Training Home Exercise Program Joint Mobilizations Manual Therapy Soft Tissue Mobilization Taping Therapeutic Activities Therapeutic Exercises Modalities Cold Pack/Ice Massage Electric Stimulation Hot Packs Traction- Mechanical Ultrasound Next Visit Focus/Plan Next Note Type Treatment Note Next Visit Plan Work on progressing core exercises. Plan of Care Dates Plan of Care Start Date 03/31/18 Plan of Care End Date 06/01/18 Please Sign and Return: I have reviewed this Plan of Care and certify that the skilled therapy services above are required to meet the patient?s needs. Physician Signature Date Printed Name and Credentials Clinical Instructor Signature Printed Name and Credentials
--- NOTE | 2018-04-07 14:02 | PT.OTN ---
Current Diagnoses Other chronic pain (04/07/18) Pain in thoracic spine (04/07/18) Physical Therapy Treatment Note PT-OP-A Visit Information Start: 12/05/17 08:49 Freq: Status: Active Protocol: Document 04/07/18 11:24 [facility] (Rec: 04/07/18 12:01 [facility] [id number]) Out-Patient Physical Therapy Visit Information Visit Information Visit Type Treatment Note Visit Start Time 11:20 Visit Stop Time 12:15 Total Visit Minutes 55 Visit Number 19 Number of SIEBEL ARCHITECT Visits 0 PT-OP-B Current Condition Start: 12/05/17 08:49 Freq: Status: Active Protocol: Document 12/05/17 09:50 [facility] (Rec: 12/05/17 15:21 [facility] [id number]) Current Condition History of Current Condition Onset Date May-June 2017 Current Complaints L upper lumbar through thoracic to neck L>R History of Current Condition Pt c/o mostly L lower thoracic pain that she says starts at L upper lumbar and radiates up to L cervical region, and can be painful on both sides. Reports it is mostly more annoying that painful, except when rolling. Pt reports she hears a clicking in her neck also. She has not tried icing for pain relief. Pt reports she walks daily, but has avoided distance w/walks d/t pain and puts of her daily activities. 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 (Rec: 04/07/18 12:01 [facility] [id number]) OP-PT Subjective Patient Comments Patient Comments Reports she has had some good days and some bad days. Reports she spent about 8 hours in a car to visit her mom and lifting aggrevated her back. PT-OP-F Manual Assessment Start: 12/05/17 08:49 Freq: Status: Active Protocol: Document 12/05/17 09:50 [facility] (Rec: 12/05/17 10:36 [facility] [id number]) Manual Assessments Joint Mobility Assessment Joint Mobility Assessment Equal greater trochanters & iliac crest height. PT-OP-G Mobility & Gait Start: 12/05/17 08:49 Freq: Status: Active Protocol: Document 12/05/17 09:50 [facility] (Rec: 12/05/17 10:36 [facility] [id number]) OP Gait Assessment Comments Gait Comments Dec B hip ext and dec UE arm swing. Overall dec post depression & ant elevation of pelvis. PT-OP-J Posture/Palpation/Skin Start: 12/05/17 08:49 Freq: Status: Active Protocol: Document 02/03/18 12:00 [facility] (Rec: 02/03/18 15:59 [facility] [id number]) Posture Evaluation Agustin Postural Classification System Agustin Postural Classifications Anterior/Posterior Vertebral Compression Test 2 Elbow Flexion Test 1 Lumbar Protective Mechanism Left AP 0 Lumbar Protective Mechanism Right AP 1 Lumbar Protective Mechanism Left PA 1 Lumbar Protective Mechanism Right PA 1 Leg Swing Left Limited Leg Swing Right Limited PT-OP-K Range of Motion Start: 12/05/17 08:49 Freq: Status: Active Protocol: Document 12/05/17 09:50 [facility] (Rec: 12/05/17 10:36 [facility] [id number]) Cervical Spine Range of Motion Cervical Spine Active Degrees Testing Position Sitting Flexion 63 Extension 40 Rotation Left 50 Rotation Right 44 Lateral Flexion Left 22 Lateral Flexion Right 18 Comments pain w/ flex & ipsilateral pain w/SB Lumbar Spine Range of Motion Lumbar Spine Active Degrees Flexion 75 Extension 12 Rotation Left 23 Rotation Right 32 Lateral Flexion Left 20 Lateral Flexion Right 25 Comments pain w/ ext; pain w/ L side bend PT-OP-L Special Tests Start: 12/05/17 08:49 Freq: Status: Active Protocol: Document 12/05/17 09:50 [facility] (Rec: 12/05/17 10:36 [facility] [id number]) Special Tests Cervical Spine Special Tests Vertebral Artery Test Results neg B Spurling's Test Test Results positive Lumbar Spine Special Tests Straight Leg Raise Test Results positive B with pain into L thoracic region Slump Test Results neg B PT-OP-M Strength Start: 12/05/17 08:49 Freq: Status: Active Protocol: Document 03/31/18 11:23 [facility] (Rec: 03/31/18 17:05 [facility] [id number]) Hip Strength Hip Manual Muscle Testing Right Flexion (L2) 5 Normal Extension (S1) 4 Good Abduction 5 Normal External Rotation 5 Normal Internal Rotation 5 Normal Left Flexion (L2) 5 Normal Extension (S1) 4 Good Abduction 5 Normal External Rotation 4+ Good+ Internal Rotation 4 Good Knee Strength Knee Manual Muscle Testing Right Flexion (S2) 5 Normal Extension (L3) 5 Normal Left Flexion (S2) 5 Normal Extension (L3) 5 Normal PT-OP-Q Treatments Start: 12/05/17 08:49 Freq: Status: Active Protocol: Document 04/07/18 11:24 [facility] (Rec: 04/07/18 12:01 [facility] [id number]) Cardio Equipment Recumbent Stepper (Sci-Fit) Duration (Minutes) 6 Resistance 5 Therapeutic Exercises Supine Exercises 4 Supine Exercise Name Alt leg lowering from DKTC position Comments focus on core 3 Supine Exercise Name marching with alt leg in ext Comments focus on TAbd contraction 2 Supine Exercise Name post pelvic tilt Comments standing, supine, hooklying 1 Supine Exercise Name DKTC Reps/Minutes 30 sec Therapeutic Activity Therapeutic Activity Lifting Name lift Comments edu and review for lifting off the ground & surface with 20lb wt. Focus on standing with weight & with up/down stairs with weight 1 Name standing posture Comments focus on relax of excessive lordosis Manual Therapy Treatment Soft Tissue Mobilization 2 Body Location paraspinals Mobilization Type Rolling Intensity/Depth Moderate Body Position Prone PT-OP-R Modalities Start: 12/05/17 08:49 Freq: Status: Active Protocol: Document 04/07/18 11:24 [facility] (Rec: 04/07/18 12:01 [facility] [id number]) Hot Pack/Cold Pack Treatment Hot Pack Location lumbar Patient Position Prone Treatment Duration (minutes) 15 PT-OP-T Assessment and Plan Start: 12/05/17 08:49 Freq: Status: Active Protocol: Document 04/07/18 11:24 [facility] (Rec: 04/07/18 14:02 [facility] [id number]) Physical Therapy Assessment Goals Four Impairment activities Short Term Goal (STG) Pt will demonstrate good lifting mechanics & will have an ergonomically correct desk set up. STG Duration 03/06/18-improving, Has setup desk Senior Living Goal (LTG) Pt will be able to garden, lift and do long walks without pain. LTG Duration 1/16/19- able to do some long walks Three Impairment bed mobility Senior Living Goal (LTG) Pt will be able to do all bed mobility without pain LTG Duration 9-improving MIld pain with log roll occasionally. Two Impairment core stability/strength Short Term Goal (STG) Pt will be indep with HEP STG Duration 01/05/18-advancing HEP Waiter/Waitress Counter Goal (LTG) 5/5 LE strength, EFT, VCT & LPM to demonstrate improved stability and to allow pt to return to normal activities LTG Duration 05/07/18 One Impairment pain Short Term Goal (STG) Constant pain to 1/10 STG Duration achieved Waiter/Waitress Counter Goal (LTG) worst pain to 2/10 LTG Duration achieved Assessment Summary Assessment Pt did well with lifting mechanics but has difficulty when standing with weight and when walking with weight that was improved with edu on mechanics of posture & walking with weight. Improved positioning of pelvis w/edu of pelvic tilt seated on ball. Physical Therapy Plan Frequency and Duration Frequency of Treatment 1-2x/Week Duration of Treatment 2 months Plan of Care Start Date 03/31/18 Plan of Care End Date 06/01/18 Next Visit Focus/Plan Next Note Type Discharge Summary Next Visit Plan Review HEP; review posture & lifting prn; re-assess strength
--- NOTE | 2018-04-27 17:56 | PT.OTN ---
Current Diagnoses Other chronic pain (04/27/18) Pain in thoracic spine (04/27/18) Physical Therapy Treatment Note PT-OP-A Visit Information Start: 12/05/17 08:49 Freq: Status: Active Protocol: Document 04/27/18 17:41 [facility] (Rec: 04/27/18 17:56 [facility] [id number]) Out-Patient Physical Therapy Visit Information Visit Information Visit Type Treatment Note Visit Start Time 16:45 Visit Stop Time 15:45 Total Visit Minutes 60 Visit Number 20 Number of LINE INSPECTOR Visits 0 PT-OP-B Current Condition Start: 12/05/17 08:49 Freq: Status: Active Protocol: Document 12/05/17 09:50 [facility] (Rec: 12/05/17 15:21 [facility] [id number]) Current Condition History of Current Condition Onset Date May-June 2017 Current Complaints L upper lumbar through thoracic to neck L>R History of Current Condition Pt c/o mostly L lower thoracic pain that she says starts at L upper lumbar and radiates up to L cervical region, and can be painful on both sides. Reports it is mostly more annoying that painful, except when rolling. Pt reports she hears a clicking in her neck also. She has not tried icing for pain relief. Pt reports she walks daily, but has avoided distance w/walks d/t pain and puts of her daily activities. 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 PT-OP-F Manual Assessment Start: 12/05/17 08:49 Freq: Status: Active Protocol: Document 12/05/17 09:50 [facility] (Rec: 12/05/17 10:36 [facility] [id number]) Manual Assessments Joint Mobility Assessment Joint Mobility Assessment Equal greater trochanters & iliac crest height. PT-OP-G Mobility & Gait Start: 12/05/17 08:49 Freq: Status: Active Protocol: Document 12/05/17 09:50 [facility] (Rec: 12/05/17 10:36 [facility] [id number]) OP Gait Assessment Comments Gait Comments Dec B hip ext and dec UE arm swing. Overall dec post depression & ant elevation of pelvis. PT-OP-J Posture/Palpation/Skin Start: 12/05/17 08:49 Freq: Status: Active Protocol: Document 02/03/18 12:00 [facility] (Rec: 02/03/18 15:59 [facility] [id number]) Posture Evaluation Agustin Postural Classification System Agustin Postural Classifications Anterior/Posterior Vertebral Compression Test 2 Elbow Flexion Test 1 Lumbar Protective Mechanism Left AP 0 Lumbar Protective Mechanism Right AP 1 Lumbar Protective Mechanism Left PA 1 Lumbar Protective Mechanism Right PA 1 Leg Swing Left Limited Leg Swing Right Limited PT-OP-K Range of Motion Start: 12/05/17 08:49 Freq: Status: Active Protocol: Document 12/05/17 09:50 [facility] (Rec: 12/05/17 10:36 [facility] [id number]) Cervical Spine Range of Motion Cervical Spine Active Degrees Testing Position Sitting Flexion 63 Extension 40 Rotation Left 50 Rotation Right 44 Lateral Flexion Left 22 Lateral Flexion Right 18 Comments pain w/ flex & ipsilateral pain w/SB Lumbar Spine Range of Motion Lumbar Spine Active Degrees Flexion 75 Extension 12 Rotation Left 23 Rotation Right 32 Lateral Flexion Left 20 Lateral Flexion Right 25 Comments pain w/ ext; pain w/ L side bend PT-OP-L Special Tests Start: 12/05/17 08:49 Freq: Status: Active Protocol: Document 12/05/17 09:50 [facility] (Rec: 12/05/17 10:36 [facility] [id number]) Special Tests Cervical Spine Special Tests Vertebral Artery Test Results neg B Spurling's Test Test Results positive Lumbar Spine Special Tests Straight Leg Raise Test Results positive B with pain into L thoracic region Slump Test Results neg B PT-OP-M Strength Start: 12/05/17 08:49 Freq: Status: Active Protocol: Document 03/31/18 11:23 [facility] (Rec: 03/31/18 17:05 [facility] [id number]) Hip Strength Hip Manual Muscle Testing Right Flexion (L2) 5 Normal Extension (S1) 4 Good Abduction 5 Normal External Rotation 5 Normal Internal Rotation 5 Normal Left Flexion (L2) 5 Normal Extension (S1) 4 Good Abduction 5 Normal External Rotation 4+ Good+ Internal Rotation 4 Good Knee Strength Knee Manual Muscle Testing Right Flexion (S2) 5 Normal Extension (L3) 5 Normal Left Flexion (S2) 5 Normal Extension (L3) 5 Normal PT-OP-Q Treatments Start: 12/05/17 08:49 Freq: Status: Active Protocol: Document 04/27/18 17:41 [facility] (Rec: 04/27/18 17:56 [facility] [id number]) Therapeutic Exercises Supine Exercises 5 Supine Exercise Name bridge 4 Supine Exercise Name Alt leg lowering from DKTC position Comments focus on core 3 Supine Exercise Name marching with alt leg in ext Comments focus on TAbd contraction 2 Supine Exercise Name post pelvic tilt Comments standing, supine, hooklying Standing Exercises gait press at wall Standing Exercise Name gait at wall Side bilateral 4 Standing Exercise Name wall posture 2 Standing Exercise Name lunge Comments in mirror 1 Standing Exercise Name squat Reps/Minutes 30 Comments over chair Other Exercises 4 Other Exercise Name quadruped leg extension Reps/Minutes 2x10 3 Other Exercise Name cat/camel 2 Other Exercise Name paresh pose Manual Therapy Treatment Soft Tissue Mobilization 2 Body Location thoracic paraspinals Mobilization Type Rolling Intensity/Depth Moderate Body Position Prone 1 Body Location QL & lumbar paraspinals Mobilization Type Rolling Intensity/Depth Moderate Body Position Prone PT-OP-R Modalities Start: 12/05/17 08:49 Freq: Status: Active Protocol: Document 04/27/18 17:41 [facility] (Rec: 04/27/18 17:56 [facility] [id number]) Hot Pack/Cold Pack Treatment Hot Pack Location lumbar Patient Position Prone Treatment Duration (minutes) 15 PT-OP-T Assessment and Plan Start: 12/05/17 08:49 Freq: Status: Active Protocol: Document 04/27/18 17:41 [facility] (Rec: 04/27/18 17:56 [facility] [id number]) Physical Therapy Assessment Goals Four Impairment activities Short Term Goal (STG) Pt will demonstrate good lifting mechanics & will have an ergonomically correct desk set up. STG Duration achieved Joy Operator Goal (LTG) Pt will be able to garden, lift and do long walks without pain. LTG Duration 05/06/18- able to do some long walks & Lifting w/up/down pain Three Impairment bed mobility Joy Operator Goal (LTG) Pt will be able to do all bed mobility without pain LTG Duration 9-improving MIld pain with log roll occasionally. Two Impairment core stability/strength Short Term Goal (STG) Pt will be indep with HEP STG Duration achieved Joy Operator Goal (LTG) 5/5 LE strength, EFT, VCT & LPM to demonstrate improved stability and to allow pt to return to normal activities LTG Duration 05/07/18-to improve with HEP One Impairment pain Short Term Goal (STG) Constant pain to 1/10 STG Duration achieved Nursing Home Goal (LTG) worst pain to 2/10 LTG Duration achieved Assessment Summary Assessment Pt was able to do all exercises with good mechanics with cueing and has been doing them at home. Pt reports improvement with overall lifting and is to cont to advance. She will cont to improve strength w/HEP continuation. Physical Therapy Plan Discharge Physical Therapy Discharge Reasons Goals Met Discharge Comments Pt most goals met or close to met
== END 2018-06-10 10:10 ==
LOC: PHYS 16:45
PROVIDERS: Family Provider Family Medicine; PCP Family Medicine; Visit Provider Internal Medicine
DX: M54.6 Pain in thoracic spine (principal); G89.29 Other chronic pain
CPT/HCPCS: 97010; 97014; 97110; 97112; 97116; 97140; 97162; 97530; G0283

== ENCOUNTER → 2018-06-11 08:42 | Outpatient (CLI) | payer BC, SELFPAY ==
--- NOTE | 2018-06-11 | DI.MG.S_ITS ---
BILATERAL DIGITAL SCREENING MAMMOGRAM 3D/2D WITH CAD: 06/11/2018 CLINICAL: Routine screening. Family history of breast cancer. Comparison is made to exams dated: 06/04/2017 mammogram, 05/27/2016 mammogram, and 05/05/2015 mammogram - [facility]. The tissue of both breasts is heterogeneously dense. This may lower the sensitivity of mammography. Current study was also evaluated with a Computer Aided Detection (CAD) system. No significant masses, calcifications, or other findings are seen in either breast. There has been no significant interval change. IMPRESSION: NEGATIVE There is no mammographic evidence of malignancy. A 1 year screening mammogram is recommended. This exam was interpreted at Station ID: [id number]. NOTE: For mammograms, a report in lay terms will be sent to the patient. Approximately 15% of breast malignancies will not be visualized mammographically. In the management of a palpable breast mass, a negative mammogram must not discourage biopsy of a clinically suspicious lesion. Electronically Signed By: Kary buck/liza:06/11/2018 11:17:28 letter sent: Normal Exam ACR BI-RADS Category 1: Negative [id number]
== END ==
PROVIDERS: PCP Family Medicine; Visit Provider Family Medicine
DX: Z12.31 Encounter for screening mammogram for malignant neoplasm of breast (principal); Z80.3 Family history of malignant neoplasm of breast
CPT/HCPCS: 77063; 77067

== ENCOUNTER → 2019-01-22 09:57 | Outpatient (CLI) | payer BC, SELFPAY ==
[2019-01-22 11:42] LABS: Alanine Aminotransferase 29 IU/L (9-52); Albumin 4.3 g/dL (3.5-5.0); Albumin Globulin Ratio 1.4 (1.0-2.8); Alkaline Phosphatase 41 U/L (38-126); Aspartate Aminotransferase 27 IU/L (14-36); Bilirubin Total 0.6 mg/dL (0.2-1.3); Blood Urea Nitrogen 16 mg/dL (7-17); Calcium 9.5 mg/dL (8.4-10.2); Carbon Dioxide 26 mmol/L (22-32); Chloride 104 mmol/L (98-107); Cholesterol 241 mg/dL (140-199); Estimated Glomerular Filt Rate > 60.0 mL/min (>60); Glucose 108 mg/dL (70-100); HDL Cholesterol 40 mg/dL (40-60); HEMOLYSIS < 15 (0-50); LDL Cholesterol Calculated 144 mg/dL (<100); Potassium 5.2 mmol/L (3.4-5.1); Sodium 139 mmol/L (137-145); Total Protein 7.3 g/dL (6.3-8.2); Triglycerides 287 mg/dL (35-150)
== END ==
PROVIDERS: PCP Family Medicine; Visit Provider Family Medicine
DX: I10 Essential (primary) hypertension (principal); E66.9 Obesity, unspecified
CPT/HCPCS: 36415; 80053; 80061

== ENCOUNTER → 2019-02-19 14:14 | Outpatient (CLI) | payer BC, SELFPAY | PROVIDERS: PCP Family Medicine; Visit Provider Family Medicine | DX: M85.851 Other specified disorders of bone density and structure, right thigh (principal); Z78.0 Asymptomatic menopausal state | CPT/HCPCS: 77080 ==

== ENCOUNTER 2019-04-30 07:37 | Day surgery (SDC) | payer BC, SELFPAY ==
[2019-04-30 07:53] VITALS: BMI 32.5
[2019-04-30 07:57] VITALS: BP 122/75; PULSE 73; RESP 15; TEMP 36.6; O2SAT 95
[2019-04-30] MEDS: SODIUM CHLORIDE 0.9% 1,000 ML 200 ML IV (07:59)
--- NOTE | 2019-04-30 08:10 | PM.HP.1 ---
History of Present Illness History of Present Illness Date Patient Seen: 04/30/19 Time Patient Seen: 08:10 Chief complaint: [id number] Narrative: This is a 58-year-old woman here for her follow-up surveillance colonoscopy. She had a screening colonoscopy 5 years ago and was found to have polyps on that procedure. She has a family history of a father who was diagnosed with colon cancer at age 64 and at age 65. She denies any personal history of melena, hematochezia, unexplained weight loss or unexplained abdominal pain. ROS: Thirteen system review is otherwise negative other than as mentioned below and in HPI. PE: GENERAL: Well groomed and cooperative. Appears stated age. Answers questions promptly and appropriately. Vital signs noted. HENT: Normocephalic, atraumatic. Hearing intact. Oral mucosa is pink and moist. EYES: Conjunctiva pink, sclera white, no periorbital swelling. CARDIOVASCULAR: Regular rate. No pedal edema. RESPIRATORY: Non-tachypneic, breathing comfortably on room air. GASTROINTESTINAL: Abdomen soft and non-distended GENITALURINARY: No flank tenderness. MUSCULOSKELETAL: Equal tone and mass bilaterally. SKIN: Warm, dry, soft, appropriate color for ethnicity. No other lesions, rashes, or wounds. NEURO: Alert and Oriented X 3. No gross sensory deficits, or cognitive issues. PSYCH: Appropriate affect and mood. Patient History Medical History Abnormal Pap smear of cervix (Resolved ~1989) Depression (Chronic) Family history of colon cancer (Acute) 2 para 2 (Resolved) Hemorrhoids (Resolved 1994) HPV (human papilloma virus) infection (Resolved ~1989) Hypertension (Chronic 2015) Menopause (Resolved 2012) Prediabetes (Acute) Tubular adenoma of colon (Resolved ~04/2015) Surgical History Anesthesia (Resolved) Status post colonoscopy (Resolved ~04/2014) Status post tonsillectomy and adenoidectomy (Resolved) Family & Social History Family History Brother Age: 59 Testicular cancer Father Hypertension Cancer Heart disease Colon cancer Mother Age: 91 Graves disease COPD (chronic obstructive pulmonary disease) Congestive heart failure Heavy smoker History of radioactive iodine thyroid ablation Grandfather Liver failure Grandmother Diabetes mellitus Grandfather No problems noted. Grandmother No problems noted. Social History: household members spouse Tobacco & Substance use: Smoking Status Never smoker alcohol intake never Meds Home Medications and Allergies Home Medications Medication Instructions Recorded Confirmed Type aspirin 81 mg PO QDAY #30 tab 02/05/16 04/30/19 History estradiol-norethindrone acet 1 1 tab PO QDAY #84 tab 10/17/18 04/30/19 Rx mg-0.5 mg tablet metoprolol succinate 50 mg 50 mg PO QDAY #90 tab 10/17/18 04/30/19 Rx tablet,extended release 24 hr Allergies Allergy/AdvReac Type Severity Reaction Status Date / Time No Known Drug Allergies Allergy Verified 04/30/19 07:52 Exam Vital Signs (past 8 hours): - 04/30/19 07:57 Temperature 97.9 F Pulse Rate 73 Respiratory Rate 15 Blood Pressure 122/75 Pulse Oximetry 95 Oxygen Delivery Method Room Air Assessment & Plan Assessment and plan (1) Tubular adenoma of colon: Current visit: No Status: Resolved (2) Family history of colon cancer: Problem details: father diagnosed in his 60's Current visit: No Status: Acute (3) Personal history of colonic polyps: Current visit: Yes Status: Acute Assessment & Plan narrative: This is a 58-year-old woman here for surveillance colonoscopy. Risks and benefits of the procedure were discussed with the patient including risk of bleeding, perforation, need for additional procedures. The patient desires to proceed with her colonoscopy and possible polypectomy procedure. Time Spent With Patient Time with patient: 15-24 minutes Quality VTE Deep Vein Thrombosis/Pulmonary Embolism Present on Admission: No
--- NOTE | 2019-04-30 08:40 | PM.HP.1 ---
History of Present Illness History of Present Illness Chief complaint: [id number] Narrative: This is a 58-year-old woman here for her follow-up surveillance colonoscopy. She had a screening colonoscopy 5 years ago and was found to have polyps on that procedure. She has a family history of a father who was diagnosed with colon cancer at age 64 and at age 65. She denies any personal history of melena, hematochezia, unexplained weight loss or unexplained abdominal pain. ROS: Thirteen system review is otherwise negative other than as mentioned below and in HPI. PE: GENERAL: Well groomed and cooperative. Appears stated age. Answers questions promptly and appropriately. Vital signs noted. HENT: Normocephalic, atraumatic. Hearing intact. Oral mucosa is pink and moist. EYES: Conjunctiva pink, sclera white, no periorbital swelling. CARDIOVASCULAR: Regular rate. No pedal edema. RESPIRATORY: Non-tachypneic, breathing comfortably on room air. GASTROINTESTINAL: Abdomen soft and non-distended GENITALURINARY: No flank tenderness. MUSCULOSKELETAL: Equal tone and mass bilaterally. SKIN: Warm, dry, soft, appropriate color for ethnicity. No other lesions, rashes, or wounds. NEURO: Alert and Oriented X 3. No gross sensory deficits, or cognitive issues. PSYCH: Appropriate affect and mood. Patient History Medical History Abnormal Pap smear of cervix (Resolved ~1989) Depression (Chronic) Family history of colon cancer (Acute) 2 para 2 (Resolved) Hemorrhoids (Resolved 1994) HPV (human papilloma virus) infection (Resolved ~1989) Hypertension (Chronic 2015) Menopause (Resolved 2012) Prediabetes (Acute) Tubular adenoma of colon (Resolved ~04/2015) Surgical History Anesthesia (Resolved) Status post colonoscopy (Resolved ~04/2014) Status post tonsillectomy and adenoidectomy (Resolved) Family & Social History Family History Brother Age: 59 Testicular cancer Father Hypertension Cancer Heart disease Colon cancer Mother Age: 91 Graves disease COPD (chronic obstructive pulmonary disease) Congestive heart failure Heavy smoker History of radioactive iodine thyroid ablation Grandfather Liver failure Grandmother Diabetes mellitus Grandfather No problems noted. Grandmother No problems noted. Social History: household members spouse Tobacco & Substance use: Smoking Status Never smoker alcohol intake never Meds Home Medications and Allergies Home Medications Medication Instructions Recorded Confirmed Type aspirin 81 mg PO QDAY #30 tab 02/05/16 04/30/19 History estradiol-norethindrone acet 1 1 tab PO QDAY #84 tab 10/17/18 04/30/19 Rx mg-0.5 mg tablet metoprolol succinate 50 mg 50 mg PO QDAY #90 tab 10/17/18 04/30/19 Rx tablet,extended release 24 hr Allergies Allergy/AdvReac Type Severity Reaction Status Date / Time No Known Drug Allergies Allergy Verified 04/30/19 07:52 Exam Vital Signs (past 8 hours): - 04/30/19 07:57 Temperature 97.9 F Pulse Rate 73 Respiratory Rate 15 Blood Pressure 122/75 Pulse Oximetry 95 Oxygen Delivery Method Room Air Quality VTE Deep Vein Thrombosis/Pulmonary Embolism Present on Admission: No
--- NOTE | 2019-04-30 08:41 | PM.OP.ENDO ---
Operative Date/Time/Diagnoses Date of procedure: 04/30/19 Time of procedure: 08:41 Pre-op diagnosis: Personal history of colon polyps, family history of colon cancer Post-op diagnosis: other (Descending and sigmoid diverticulosis, thickened colon and evidence of prior diverticulitis, no active diverticulitis) Procedure & Clinicians Study performed: Surveillance colonoscopy Same procedure as scheduled: Yes Indications: Personal history of colon polyps, family history of colon cancer Surgeon: Izabella Parrish Procedure Notes SCOAP/Timeout: Performed Procedure in detail: The patient was brought to the room and placed in left lateral decubitus position with all bony prominences padded. A time-out was performed and then the patient was given procedural sedation starting with 4 mg of Versed and 100 mcg of fentanyl. A total of 5 mg of Versed and 150 micro g of fentanyl were used for the entire procedure. Vitals were monitored throughout the procedure and remained stable. Once adequately sedated the procedure was begun. A rectal exam was performed revealing no abnormalities. The colonoscope was then introduced to the rectum and advanced to the cecum in the usual fashion. The cecum was identified by the appendiceal orifice, the mucosal tri-fold, and the ileocecal valve. The scope was then retracted while rotating side to side and examining each mucosal fold. No polyps were seen. There were extensive diverticula throughout the descending and sigmoid colon, and some prominent thickening of the sigmoid colon with large mouthed diverticula and deep false passages consistent with a history of significant diverticulitis. At the conclusion of the procedure retroflexion was performed and small grade 1-2 internal hemorrhoids without stigmata of bleeding were seen. The scope was then withdrawn from the rectum the procedure was concluded. The patient tolerated the procedure well and was transferred to the PACU in stable condition. Scope withdrawal time: 8 Sedation minutes: 25 Findings: diverticulosis Specimen(s): none sent Complications: none Impression: Significant diverticulosis in the left colon and evidence of prior episodes of diverticulitis Post-procedure Recommendations: Colonscopy in 5 years (Due to family history and personal history of polyps) Follow up: as needed Disposition: PACU
[2019-04-30] MEDS: fentaNYL 250 MCG/5 ML INJ IV (08:42)
[2019-04-30] MEDS: MIDAZOLAM 5 MG/5 ML VIAL IV (08:42)
[2019-04-30 08:45] VITALS: BP 112/69; PULSE 72; RESP 12; TEMP 36.1; O2SAT 96
[2019-04-30 08:50] VITALS: BP 105/69; PULSE 65; RESP 16; O2SAT 96
[2019-04-30 08:54] VITALS: BP 108/71; PULSE 75; RESP 16; O2SAT 98
[2019-04-30 09:00] VITALS: BP 118/76; PULSE 72; RESP 14; TEMP 36.4; O2SAT 98
[2019-04-30 09:20] VITALS: BP 115/82; PULSE 63; RESP 15; TEMP 36.5; O2SAT 98
== END 2019-04-30 09:34 | disposition home or self-care (01) ==
LOC: ENDO 07:39
PROVIDERS: PCP Family Medicine; Visit Provider Surgery
PROC: 0DJD8ZZ Inspection of Lower Intestinal Tract, Via Natural or Artificial Opening Endoscopic (ICD-10-PCS; CPT 45378; principal; 2019-04-30 08:30)
DX: Z12.11 Encounter for screening for malignant neoplasm of colon (principal); Z86.010 Personal history of colon polyps; Z80.0 Family history of malignant neoplasm of digestive organs; K57.30 Diverticulosis of large intestine without perforation or abscess without bleeding; K64.0 First degree hemorrhoids; I10 Essential (primary) hypertension; R73.03 Prediabetes
CPT/HCPCS: 45378; 99152; J2250; J3010

== ENCOUNTER → 2019-05-07 09:32 | Outpatient (CLI) | payer BC, SELFPAY ==
[2019-05-07 11:10] LABS: BUN Creatinine Ratio 21.3 (6-22); Blood Urea Nitrogen 17 mg/dL (7-17); Calcium 9.6 mg/dL (8.4-10.2); Carbon Dioxide 26 mmol/L (22-32); Chloride 105 mmol/L (98-107); Cholesterol 249 mg/dL (140-199); Estimated Glomerular Filt Rate > 60.0 mL/min (>60); Glucose 99 mg/dL (70-100); HDL Cholesterol 42 mg/dL (40-60); HEMOLYSIS < 15 (0-50); LDL Cholesterol Calculated 163 mg/dL (<100); Potassium 4.9 mmol/L (3.4-5.1); Sodium 140 mmol/L (137-145); Triglycerides 221 mg/dL (35-150)
== END ==
PROVIDERS: PCP Family Medicine; Visit Provider Family Medicine
DX: E78.00 Pure hypercholesterolemia, unspecified (principal); I10 Essential (primary) hypertension; E87.5 Hyperkalemia; R73.9 Hyperglycemia, unspecified; R73.03 Prediabetes; E78.5 Hyperlipidemia, unspecified; E66.9 Obesity, unspecified
CPT/HCPCS: 36415; 80048; 80061

== ENCOUNTER → 2019-06-19 13:15 | Outpatient (CLI) | payer BC, SELFPAY ==
--- NOTE | 2019-06-19 | DI.MG.S_ITS ---
BILATERAL DIGITAL SCREENING MAMMOGRAM 3D/2D WITH CAD: 06/19/2019 CLINICAL: Routine screening. Family history of breast cancer. Comparison is made to exams dated: 06/11/2018 mammogram, 06/04/2017 mammogram, and 05/27/2016 mammogram - [facility]. The tissue of both breasts is heterogeneously dense. This may lower the sensitivity of mammography. Current study was also evaluated with a Computer Aided Detection (CAD) system. No significant masses, calcifications, or other findings are seen in either breast. There has been no significant interval change. IMPRESSION: NEGATIVE There is no mammographic evidence of malignancy. A 1 year screening mammogram is recommended. This exam was interpreted at Station ID: [id number]. NOTE: For mammograms, a report in lay terms will be sent to the patient. Approximately 15% of breast malignancies will not be visualized mammographically. In the management of a palpable breast mass, a negative mammogram must not discourage biopsy of a clinically suspicious lesion. Electronically Signed By: Kary buck/liza:06/19/2019 13:47:21 letter sent: Normal Exam ACR BI-RADS Category 1: Negative 3341F
== END ==
PROVIDERS: PCP Family Medicine; Referring Provider Family Medicine; Visit Provider Family Medicine
DX: Z12.31 Encounter for screening mammogram for malignant neoplasm of breast (principal); Z80.3 Family history of malignant neoplasm of breast
CPT/HCPCS: 77063; 77067

== ENCOUNTER → 2020-06-01 12:51 | Outpatient (CLI) | payer BC, SELFPAY ==
[2020-06-01 14:15] LABS: Alanine Aminotransferase 39 IU/L (<35); Albumin 4.3 g/dL (3.5-5.0); Albumin Globulin Ratio 1.4 (1.0-2.8); Alkaline Phosphatase 44 U/L (38-126); Aspartate Aminotransferase 35 IU/L (14-36); BUN Creatinine Ratio 18.7 (6-22); Bilirubin Total 0.4 mg/dL (0.2-1.3); Blood Urea Nitrogen 14 mg/dL (7-17); Carbon Dioxide 29 mmol/L (22-32); Chloride 104 mmol/L (98-107); Cholesterol 240 mg/dL (140-199); Estimated Glomerular Filt Rate > 60.0 mL/min (>60); Globulin 3.1 g/dL (1.7-4.1); Glucose 109 mg/dL (70-100); HDL Cholesterol 39 mg/dL (40-60); HEMOLYSIS < 15 (0-50); LDL Cholesterol Calculated 141 mg/dL (<100); Potassium 3.9 mmol/L (3.4-5.1); Sodium 137 mmol/L (137-145); Total Protein 7.4 g/dL (6.3-8.2); Triglycerides 301 mg/dL (35-150)
[2020-06-01 15:17] LABS: Vitamin D 25 Hydroxy (D3) 31.8 ng/mL (30.0-100.0)
== END ==
PROVIDERS: PCP Family Medicine; Referring Provider Family Medicine; Visit Provider Family Medicine
DX: M85.80 Other specified disorders of bone density and structure, unspecified site (principal); E66.9 Obesity, unspecified; E78.00 Pure hypercholesterolemia, unspecified; I10 Essential (primary) hypertension; R73.03 Prediabetes
CPT/HCPCS: 36415; 80053; 80061; 82306

== ENCOUNTER → 2020-08-03 17:05 | Outpatient (CLI) | payer BC, SELFPAY ==
--- NOTE | 2020-08-03 | DI.MG.S_ITS ---
BILATERAL DIGITAL SCREENING MAMMOGRAM 3D/2D WITH CAD: 08/03/2020 CLINICAL: Routine screening. Family history of breast cancer. Comparison is made to exams dated: 06/19/2019 mammogram, 06/11/2018 mammogram, 06/04/2017 mammogram, 05/27/2016 mammogram, 05/03/2013 mammogram, and 04/29/2011 mammogram - [facility]. The tissue of both breasts is heterogeneously dense. This may lower the sensitivity of mammography. Current study was also evaluated with a Computer Aided Detection (CAD) system. No significant masses, calcifications, or other findings are seen in either breast. There has been no significant interval change. IMPRESSION: NEGATIVE There is no mammographic evidence of malignancy. A 1 year screening mammogram is recommended. This exam was interpreted at Station ID: [id number]. NOTE: For mammograms, a report in lay terms will be sent to the patient. Approximately 15% of breast malignancies will not be visualized mammographically. In the management of a palpable breast mass, a negative mammogram must not discourage biopsy of a clinically suspicious lesion. Electronically Signed By: Reinier de leon/liza:08/04/2020 07:32:16 letter sent: Normal Exam ACR BI-RADS Category 1: Negative 3341F
== END ==
PROVIDERS: PCP Family Medicine; Referring Provider Family Medicine; Visit Provider Family Medicine
DX: Z12.31 Encounter for screening mammogram for malignant neoplasm of breast (principal); Z80.3 Family history of malignant neoplasm of breast
CPT/HCPCS: 77063; 77067

== ENCOUNTER → 2021-09-24 14:46 | Outpatient (CLI) | payer BC, SELFPAY ==
--- NOTE | 2021-09-24 | DI.MG.S_ITS ---
BILATERAL DIGITAL SCREENING MAMMOGRAM 3D/2D WITH CAD: 09/24/2021 CLINICAL: Routine screening. Family history of breast cancer. Comparison is made to exams dated: 08/03/2020 mammogram, 06/19/2019 mammogram, and 06/11/2018 mammogram - [facility]. The tissue of both breasts is heterogeneously dense. This may lower the sensitivity of mammography. Current study was also evaluated with a Computer Aided Detection (CAD) system. No significant masses, calcifications, or other findings are seen in either breast. There has been no significant interval change. IMPRESSION: NEGATIVE There is no mammographic evidence of malignancy. A 1 year screening mammogram is recommended. This exam was interpreted at Station ID: [id number]. NOTE: For mammograms, a report in lay terms will be sent to the patient. Approximately 15% of breast malignancies will not be visualized mammographically. In the management of a palpable breast mass, a negative mammogram must not discourage biopsy of a clinically suspicious lesion. Electronically Signed By: Mikhail dela cruz/liza:09/24/2021 15:12:54 letter sent: Normal Exam ACR BI-RADS Category 1: Negative 3341F
== END ==
PROVIDERS: PCP Family Medicine; Referring Provider Family Medicine; Visit Provider Family Medicine
DX: Z12.31 Encounter for screening mammogram for malignant neoplasm of breast (principal); Z80.3 Family history of malignant neoplasm of breast
CPT/HCPCS: 77063; 77067

== ENCOUNTER → 2022-08-20 | Outpatient (CLI) | payer BC, SELFPAY ==
--- NOTE | 2022-08-20 11:19 | DI.RAD.S_ITS ---
Bone Density Report Name: RADHA STEVEN Age: 62 Sex: Female Ethnicity: White Date of : 1960 Indication: postmenopausal; screening for osteoporosis; Referring Provider: SEBASTIAN THOMAS Study: Bone densitometry was performed. Exam Date: August 20, 2022 Accession number: [id number] Bone Density: Region BMD T-score Z-score Classification AP Spine(L1-L4) 1.016 -0.3 1.1 Normal Femoral Neck (Left) 0.693 -1.4 -0.1 Osteopenia Total Hip (Left) 0.932 -0.1 0.9 Normal Femoral Neck (Right) 0.755 -0.8 0.4 Normal Total Hip (Right) 0.897 -0.4 0.6 Normal Total Hip Mean 0.914 -0.3 0.8 Normal World Health Organization criteria for BMD impression classify patients as: Normal (T-score at or above -1.0), Osteopenia (T-score between -1.0 and -2.5), or Osteoporosis (T-score at or below -2.5). 10-year Fracture Risk(1): Major Osteoporotic Fracture 7.5% Hip Fracture 0.6% Reported Risk Factors: [place] (), Neck BMD=0.693, BMI=32.1 (1) FRAX(R) Version 3.08. Fracture probability calculated for an untreated patient. Fracture probability may be lower if the patient has received treatment. Previous Exams: -- Region Exam Age BMD T-score BMD Change BMD Change Date g/cm2 vs Baseline vs Previous -- AP Spine (L1-L4) 08/20/2022 62 1.016 -0.3 0.078 (8.3%)# 0.078 (8.3%)# 02/19/2019 58 0.938 -1.0 Total Hip(Left) 08/20/2022 62 0.932 -0.1 0.025 (2.8%)# 0.025 (2.8%)# 02/19/2019 58 0.906 -0.3 Total Hip(Right) 08/20/2022 62 0.897 -0.4 -0.005 (-0.6%)# -0.005 (-0.6%)# 02/19/2019 58 0.902 -0.3 -- *Denotes significance at 95% confidence level, LSC for AP Spine = 0.022 g/cm2, LSC for Total Hip = 0.027 g/cm2 # Denotes dissimilar scan types or analysis methods Impression: The patient has low bone mass, based on the Left Femoral Neck T-score. The patient has an estimated ten-year risk of hip fracture of 0.6% and an estimated ten-year risk of major fracture of 7.5%, based on the WHO FRAX algorithm. No significant bone loss was observed. Discussion: BONE DENSITY IS LOW AT ONE OR MORE SKELETAL SITES. This patient's lowest T-score is low at one or more skeletal sites. It meets the World Health Organization's (WHO) criteria for low bone mass (T-score between -1.0 and -2.5). The patient's 10-year risk of fracture as calculated by FRAX is less than the threshold where pharmacological therapy is recommended by the National Osteoporosis Foundation (NOF). However, all treatment decisions require clinical judgment and consideration of individual patient factors, including patient preferences, comorbidities, previous drug use, risk factors not captured in the FRAX model (e.g., frailty, falls, vitamin D deficiency, increased bone turnover, interval significant decline in bone density) and possible under or overestimation of fracture risk by FRAX. The patient should follow a healthful lifestyle (good nutrition with adequate calcium and vitamin D, and appropriate weight-bearing exercise). Follow-Up: Consider repeating this study in 2 to 3 years to reassess this patient's status, or sooner if there is some new clinical indication. Reported by: JORI STERN M.D. on 08/20/2022 11:39 A.M
== END ==
LOC: RAD 11:18
PROVIDERS: PCP Registered Nurse Diabetes Educator; Referring Provider Registered Nurse Diabetes Educator; Visit Provider Registered Nurse Diabetes Educator
DX: Z13.820 Encounter for screening for osteoporosis; Z78.0 Asymptomatic menopausal state; M85.852 Other specified disorders of bone density and structure, left thigh
CPT/HCPCS: 77080

== ENCOUNTER → 2022-09-02 08:59 | Outpatient (CLI) | payer BC, SELFPAY ==
[2022-09-02 10:19] LABS: Hematocrit 40.2 % (36-46); Hemoglobin 13.7 g/dL (12.0-16.0); Mean Corpuscular HGB Conc 34.2 % (30-36); Mean Corpuscular Hemoglobin 30.6 PG (26-34); Mean Corpuscular Volume 89.4 fL (80-100); Platelet Count 196 X10^3/uL (150-400); Red Blood Cell Count 4.49 X10^6/uL (4.0-5.2); White Blood Cell Count 4.9 X10^3/uL (4.5-11.0)
[2022-09-02 10:34] LABS: Alanine Aminotransferase 28 IU/L (<35); Albumin 4.2 g/dL (3.5-5.0); Albumin Globulin Ratio 1.4 (1.0-2.8); Alkaline Phosphatase 37 U/L (38-126); Aspartate Aminotransferase 25 IU/L (14-36); BUN Creatinine Ratio 21.9 (6-22); Bilirubin Total 0.5 mg/dL (0.2-1.3); Blood Urea Nitrogen 16 mg/dL (7-17); Calcium 8.8 mg/dL (8.4-10.2); Carbon Dioxide 26 mmol/L (22-32); Chloride 105 mmol/L (98-107); Cholesterol 201 mg/dL (140-199); Estimated Glomerular Filt Rate > 60 mL/min (>60); Glucose 93 mg/dL (80-110); HDL Cholesterol 35 mg/dL (40-60); HEMOLYSIS < 15 (0-50); LDL Cholesterol Calculated 135 mg/dL (<100); Potassium 4.4 mmol/L (3.4-5.1); Sodium 139 mmol/L (137-145); Total Protein 7.2 g/dL (6.3-8.2); Triglycerides 153 mg/dL (35-150)
[2022-09-02 11:11] LABS: TSH w/ Reflex to FT4 0.99 uIU/mL (0.47-4.68)
[2022-09-03 08:35] LABS: Labcorp Hemoglobin (Hb) A1c 5.7 % (4.8-5.6)
== END ==
PROVIDERS: PCP Registered Nurse Diabetes Educator; Referring Provider Registered Nurse Diabetes Educator; Visit Provider Registered Nurse Diabetes Educator
DX: I10 Essential (primary) hypertension (principal); R73.01 Impaired fasting glucose; E78.00 Pure hypercholesterolemia, unspecified
CPT/HCPCS: 36415; 80053; 80061; 83036; 84443; 85027

== ENCOUNTER → 2022-10-01 08:37 | Outpatient (CLI) | payer BC, SELFPAY ==
--- NOTE | 2022-10-01 | DI.MG.S_ITS ---
BILATERAL DIGITAL SCREENING MAMMOGRAM 3D/2D WITH CAD: 10/01/2022 CLINICAL: Routine screening. Family history of breast cancer. Comparison is made to exams dated: 09/24/2021 mammogram, 08/03/2020 mammogram, 06/19/2019 mammogram, and 06/11/2018 mammogram - [facility]. Both breasts are heterogeneously dense, which may obscure small masses (category c / 51-75% glandular tissue). Current study was also evaluated with a Computer Aided Detection (CAD) system. No significant masses, calcifications, or other findings are seen in either breast. There has been no significant interval change. IMPRESSION: NEGATIVE There is no mammographic evidence of malignancy. A 1 year screening mammogram is recommended. Based on the Tyrer Cuzick model (a risk assessment model) the patient's lifetime risk is 16.8% and her 10 year risk is 7.0%. According to the ACR, ACS, and NCCN guidelines, an annual breast MRI exam along with mammogram is recommended if the patient's lifetime risk is 20% or greater. This exam was interpreted at Station ID: [id number]. NOTE: For mammograms, a report in lay terms will be sent to the patient. Approximately 15% of breast malignancies will not be visualized mammographically. In the management of a palpable breast mass, a negative mammogram must not discourage biopsy of a clinically suspicious lesion. Electronically Signed By: Cuate alvarez/liza:10/01/2022 09:09:25 letter sent: Normal Exam ACR BI-RADS Category 1: Negative 3341F
== END ==
PROVIDERS: PCP Registered Nurse Diabetes Educator; Referring Provider Registered Nurse Diabetes Educator; Visit Provider Registered Nurse Diabetes Educator
DX: Z12.31 Encounter for screening mammogram for malignant neoplasm of breast (principal); Z80.3 Family history of malignant neoplasm of breast
CPT/HCPCS: 77063; 77067

== ENCOUNTER → 2023-02-06 10:16 | Outpatient (CLI) | payer BC, SELFPAY ==
[2023-02-06 12:18] LABS: Hemoglobin A1C% w Est Avg Glu 5.4 % (4.0-6.0)
[2023-02-06 12:22] LABS: Cholesterol 216 mg/dL (140-199); Glucose 86 mg/dL (80-110); HDL Cholesterol 39 mg/dL (40-60); LDL Cholesterol Calculated 147 mg/dL (<100); Triglycerides 149 mg/dL (35-150)
== END ==
PROVIDERS: PCP Registered Nurse Diabetes Educator; Referring Provider Registered Nurse Diabetes Educator; Visit Provider Registered Nurse Diabetes Educator
DX: Z68.30 Body mass index [BMI] 30.0-30.9, adult (principal); R73.03 Prediabetes; E78.5 Hyperlipidemia, unspecified
CPT/HCPCS: 36415; 80061; 82947; 83036

== ENCOUNTER → 2023-03-04 14:52 | Outpatient (CLI) | payer BC, SELFPAY ==
--- NOTE | 2023-03-04 14:53 | DI.US.S_ITS ---
PROCEDURE: US PELVIC COMPLETE INDICATIONS: POST-MENOPAUSAL BLEEDING TECHNIQUE: Real-time scanning was performed of the pelvic organs, with image documentation. Additional endovaginal scanning was necessary due to incomplete visualization of the adnexal and endometrial structures by transabdominal scanning. COMPARISON: None. FINDINGS: Uterus: Uterus is anteverted and normal in size at 8.7 x 3.9 x 4.7 cm. The myometrium is heterogeneous. The endometrium measures 5 mm combined thickness. There is a small amount of fluid within the endometrial cavity. A 4 mm calcification is noted in the endometrium. Ovaries: The right ovary measures 2.6 x 1.7 x 1.3 cm, with a calculated ovarian volume of 3.0 cc. The left ovary measures 2.6 x 1.2 x 1.7 cm, with a calculated ovarian volume of 2.8 cc. The ovaries have a normal sonographic appearance. Less than 12 follicles can be seen in each ovary. There is a 1.0 x 0.8 x 0.9 cm solid-appearing hyperechoic nodule in left ovary, demonstrating increased internal vascularity on Doppler ultrasound. Other: No pathologic free abdominal or pelvic fluid. IMPRESSION: 1. Endometrium measures 5 mm in combined thickness. There is a small amount of endometrial fluid, which is abnormal in this patient postmenopausal woman with mental bleeding. Consider endometrial sampling. 2. A 4 mm calcification is noted in endometrium, probably secondary to synechia. 3. A 1 cm solid-appearing, hyperechoic nodule in the right ovary without increased vascularity. Recommend a short-term follow-up ultrasound in 6 weeks. We strive to produce accurate, complete, and clear reports of imaging services. To assist us in improving patient care, this report was composed using standard report templates and voice recognition software. Therefore, it may contain abnormal punctuation, insertions and/or omissions. Occasional wrong-word or sound-alike substitutions may occur. Though we review the report and make efforts to correct it, we do recommend that the report be read carefully in proper context to recognize any text inaccuracies. Dictated by: Delmis Bashir M.D. on 03/04/2023 at 16:36 Approved by: Delmis Bashir M.D. on 03/04/2023 at 16:48
== END ==
PROVIDERS: PCP Registered Nurse Diabetes Educator; Referring Provider Registered Nurse Diabetes Educator; Visit Provider Registered Nurse Diabetes Educator
DX: N95.0 Postmenopausal bleeding (principal); N85.8 Other specified noninflammatory disorders of uterus; N83.9 Noninflammatory disorder of ovary, fallopian tube and broad ligament, unspecified
CPT/HCPCS: 76830; 76856; 93976

== ENCOUNTER → 2023-03-26 09:56 | Outpatient (CLI) | payer BC, SELFPAY ==
[2023-03-26 12:20] LABS: Cancer Antigen 125 11.6 U/mL (0-35)
[2023-03-28 09:20] LABS: Human Epididymis Prot 4 55.7 pmol/L (0.0-96.5)
== END ==
PROVIDERS: PCP Registered Nurse Diabetes Educator; Referring Provider Obstetrics & Gynecology; Visit Provider Obstetrics & Gynecology
DX: N83.8 Other noninflammatory disorders of ovary, fallopian tube and broad ligament (principal)
CPT/HCPCS: 36415; 86304; 86305

== ENCOUNTER → 2023-06-23 12:00 | Outpatient (CLI) | payer BC, SELFPAY ==
--- NOTE | 2023-06-23 12:01 | DI.US.S_ITS ---
PROCEDURE: US PELVIC COMPLETE INDICATIONS: FOLLOW-UP OVARIAN CYST TECHNIQUE: Real-time scanning was performed of the pelvic organs, with image documentation. Additional endovaginal scanning was necessary due to incomplete visualization of the adnexal and endometrial structures by transabdominal scanning. COMPARISON: [facility], US, US PELVIC COMPLETE, 03/04/2023, 15:00. FINDINGS: Uterus: Uterus is anteverted and normal in size at 8.2 x 3.8 x 5.5 cm. The myometrium is heterogeneous. The endometrium measures 5.2 mm combined thickness. Previously seen endometrial calcification is no longer visualized. Ovaries: The right ovary measures 2.0 x 1.2 x 1.7 cm, with a calculated ovarian volume of 2.1 cc. The left ovary measures 2.1 x 1.2 x 2.7 cm, with a calculated ovarian volume of 3.5 cc. The ovaries have a normal sonographic appearance. Less than 12 follicles can be seen in each ovary. No adnexal masses are seen. The cyst visualized in the right ovary on the comparison ultrasound dated March 04, 2023 has resolved. There is likely a left 2.2 cm corpus luteal cyst. Other: No pathologic free abdominal or pelvic fluid. IMPRESSION: 1. Resolution of the right ovarian cyst. 2. The endometrium measures 5 mm in diameter. This is abnormal in a postmenopausal female with a history of bleeding (per the prior ultrasound report). Endometrial biopsy recommended (if not already performed) to exclude hypertrophy or neoplasm. We strive to produce accurate, complete, and clear reports of imaging services. To assist us in improving patient care, this report was composed using standard report templates and voice recognition software. Therefore, it may contain abnormal punctuation, insertions and/or omissions. Occasional wrong-word or sound-alike substitutions may occur. Though we review the report and make efforts to correct it, we do recommend that the report be read carefully in proper context to recognize any text inaccuracies. Dictated by: Patricia Oreilly M.D. on 06/23/2023 at 14:57 Approved by: Patricia Oreilly M.D. on 06/23/2023 at 15:01
== END ==
PROVIDERS: PCP Registered Nurse Diabetes Educator; Referring Provider Obstetrics & Gynecology; Visit Provider Obstetrics & Gynecology
DX: N83.8 Other noninflammatory disorders of ovary, fallopian tube and broad ligament (principal); R93.89 Abnormal findings on diagnostic imaging of other specified body structures
CPT/HCPCS: 76830; 76856

== ENCOUNTER → 2023-08-21 09:53 | Outpatient (CLI) | payer BC, SELFPAY ==
[2023-08-21 11:07] LABS: Hematocrit 40.2 % (36-46); Hemoglobin 13.6 g/dL (12.0-16.0); Mean Corpuscular HGB Conc 33.8 % (30-36); Mean Corpuscular Hemoglobin 30.3 PG (26-34); Mean Corpuscular Volume 89.6 fL (80-100); Platelet Count 193 X10^3/uL (150-400); Red Blood Cell Count 4.48 X10^6/uL (4.0-5.2); Red Cell Distribution Width 13.8 % (11.6-14.8)
[2023-08-21 12:33] LABS: Alanine Aminotransferase 20 IU/L (<35); Albumin 4.3 g/dL (3.5-5.0); Albumin Globulin Ratio 1.7 (1.0-2.8); Alkaline Phosphatase 43 U/L (38-126); Aspartate Aminotransferase 24 IU/L (14-36); BUN Creatinine Ratio 24.3 (6-22); Bilirubin Total 0.9 mg/dL (0.2-1.3); Blood Urea Nitrogen 17 mg/dL (7-17); Calcium 9.3 mg/dL (8.4-10.2); Carbon Dioxide 27 mmol/L (22-32); Chloride 108 mmol/L (98-107); Cholesterol 237 mg/dL (140-199); Estimated Glomerular Filt Rate > 60 mL/min (>60); Globulin 2.6 g/dL (1.7-4.1); Glucose 73 mg/dL (80-110); HDL Cholesterol 53 mg/dL (40-60); HEMOLYSIS < 15 (0-50); LDL Cholesterol Calculated 163 mg/dL (<100); Potassium 4.5 mmol/L (3.4-5.1); Sodium 139 mmol/L (137-145); Total Protein 6.9 g/dL (6.3-8.2); Triglycerides 105 mg/dL (35-150)
[2023-08-21 13:00] LABS: TSH w/ Reflex to FT4 1.01 uIU/mL (0.47-4.68)
[2023-08-21 13:35] LABS: Hemoglobin A1C% w Est Avg Glu 5.3 % (4.0-6.0)
== END ==
PROVIDERS: PCP Registered Nurse Diabetes Educator; Referring Provider Registered Nurse Diabetes Educator; Visit Provider Registered Nurse Diabetes Educator
DX: I10 Essential (primary) hypertension (principal); R73.03 Prediabetes; E78.5 Hyperlipidemia, unspecified
CPT/HCPCS: 36415; 80053; 80061; 83036; 84443; 85027

== ENCOUNTER → 2023-10-06 14:25 | Outpatient (CLI) | payer BC, SELFPAY ==
--- NOTE | 2023-10-06 14:26 | DI.MG.S_ITS ---
BILATERAL DIGITAL SCREENING MAMMOGRAM 3D/2D WITH CAD: 10/06/2023 CLINICAL: Routine screening. Family history of breast cancer. Comparison is made to exams dated: 10/01/2022 mammogram, 09/24/2021 mammogram, and 08/03/2020 mammogram - [facility]. Both breasts are heterogeneously dense, which may obscure small masses (category c / 51-75% glandular tissue). Current study was also evaluated with a Computer Aided Detection (CAD) system. No significant masses, calcifications, or other findings are seen in either breast. There has been no significant interval change. IMPRESSION: NEGATIVE There is no mammographic evidence of malignancy. A 1 year screening mammogram is recommended. Based on the Tyrer Cuzick model (a risk assessment model) the patient's lifetime risk is 16.4% and her 10 year risk is 7.1%. According to the ACR, ACS, and NCCN guidelines, an annual breast MRI exam along with mammogram is recommended if the patient's lifetime risk is 20% or greater. This exam was interpreted at Station ID: [id number]. NOTE: For mammograms, a report in lay terms will be sent to the patient. Approximately 15% of breast malignancies will not be visualized mammographically. In the management of a palpable breast mass, a negative mammogram must not discourage biopsy of a clinically suspicious lesion. Electronically Signed By: Cristy Santiago M.D., Ph.D. giuliana/liza:10/06/2023 16:17:48 letter sent: Normal Exam ACR BI-RADS Category 1: Negative 3341F
== END ==
PROVIDERS: PCP Registered Nurse Diabetes Educator; Referring Provider Registered Nurse Diabetes Educator; Visit Provider Registered Nurse Diabetes Educator
DX: Z12.31 Encounter for screening mammogram for malignant neoplasm of breast (principal); Z80.3 Family history of malignant neoplasm of breast; R92.333 Mammographic heterogeneous density, bilateral breasts
CPT/HCPCS: 77063; 77067

== ENCOUNTER → 2023-12-15 15:22 | Outpatient (CLI) | payer BC, SELFPAY ==
--- NOTE | 2023-12-15 15:23 | DI.US.S_ITS ---
PROCEDURE: US THYROID INDICATIONS: Lump palpated at base of neck, L side TECHNIQUE: Real-time scanning was performed of the thyroid gland, with image documentation. COMPARISON: None. FINDINGS: Thyroid: Right lobe measures 5.7 x 1.9 x 1.5 cm. Left lobe measures 5.9 x 3.3 x 3.1 cm. Isthmus is 0.5 cm thick. Echotexture is heterogeneous, with increased vascularity. Nodule number: 1 Location: Right inferior pole Size: 1.1 x 0.5 x 0.8 cm. Composition: Mixed cystic and solid Echogenicity: Hypoechoic Shape: wider than tall. Margins: Smooth Echogenic foci: None Total points: 3 ACR TI-RADS category: Mild suspicion category Nodule number: 2 Location: Left midpole Size: 3.8 x 3.0 x 3.3 cm. Composition: Solid Echogenicity: Isoechoic Shape: wider than tall. Margins: Smooth Echogenic foci: None Total points: 3 ACR TI-RADS category: Mild suspicion category IMPRESSION: Slightly heterogeneous thyroid echogenicity, with increased vascularity, which may indicate thyroiditis. Correlate with thyroid panel. A couple of thyroid nodules. The thyroid nodule 2 meets size criteria for biopsy per consensus guidelines. Thyroid nodule 1 does not meet size criteria for follow-up. ACR TI-RADS definitions and recommendations: TI-RADS 1 (benign): 0 points. FNA not needed. TI-RADS 2 (not suspicious): 2 points. FNA not needed. TI-RADS 3 (mildly suspicious): 3 points. * FNA if 2.5 cm or larger, follow up if 1.5 cm or larger (at 1, 3, and 5 years). TI-RADS 4 (moderately suspicious): 4-6 points. * FNA if 1.5 cm or larger, follow up if 1 cm or larger (at 1, 2, 3, and 5 years). TI-RADS 5 (highly suspicious): 7 points or more. * FNA if 1 cm or larger, follow up if 0.5 cm or larger (every year for 5 years). Dictated by: Kodi Berger M.D. on 12/16/2023 at 10:42 Approved by: Kodi Berger M.D. on 12/16/2023 at 10:46
== END ==
LOC: US 15:22
PROVIDERS: PCP Registered Nurse Diabetes Educator; Referring Provider Registered Nurse Diabetes Educator; Visit Provider Registered Nurse Diabetes Educator
DX: R22.1 Localized swelling, mass and lump, neck (principal); E04.2 Nontoxic multinodular goiter
CPT/HCPCS: 76536

== ENCOUNTER → 2023-12-16 17:21 | Outpatient (CLI) | payer BC, SELFPAY ==
[2023-12-16 18:52] LABS: Free T3, Triiodothyronine Free 2.91 pg/mL (2.77-5.27); Free T4, Direct Thyroxine 1.08 ng/dL (0.78-2.19)
[2023-12-16 19:06] LABS: Thyroid Stimulating Hormone 0.772 uIU/mL (0.47-4.68)
== END ==
LOC: LAB 17:22
PROVIDERS: PCP Registered Nurse Diabetes Educator; Referring Provider Physician Assistant; Visit Provider Physician Assistant
DX: E06.9 Thyroiditis, unspecified (principal); E04.1 Nontoxic single thyroid nodule
CPT/HCPCS: 36415; 84439; 84443; 84481

== ENCOUNTER → 2024-01-05 13:50 | Outpatient (CLI) | payer BC, SELFPAY ==
--- NOTE | 2024-01-05 | PATH_ITS ---
Note [facility] Accession Number: [id number] TESTS RESULT FLAG UNITS REF RANGE LAB Clinician Provided Cytology Information No. of containers..02 Previously Prepared Cytology Slide 35 Unknown Storage/container code(s) Source: LEFT THYROID NODULE DIAGNOSIS: LEFT THYROID NODULE ATYPIA OF UNDETERMINED SIGNIFICANCE. B[place]ES[place] CATEGORY III. ATYPIA OF UNDETERMINED SIGNIFICANCE - OTHER. MOLECULAR STUDIES REQUESTED; RESULTS WILL BE REPORTED SEPARATELY. Pathologist ICD10: R89.6 Signed out by: Jeanette Allison MD, Pathologist NPI- [id number] Performed by: David Crawford, [employer] Direction Specialist ([facility]) Gross description: 30 CC, PINK, CLEAR RECIEVED: IN CYTOLYT WITH 6 ALCOHOL FIXED AND 6 QUICK STAINED SLIDES ALSO 1 RNA VIAL WILL ON 04-29-2024.VO /VDU 01/06/2024 0631 Local FLAG LEGEND: L-Low Normal,H-High Normal,LL-Alert Low,HH-Alert High <-Panic Low,>-Panic High,A-Abnormal,AA-Critical Abnormal Performed at: 01 =[facility] [address], [place] [address] Mateo Grullon MD, Performed at: [address] [facility] [address], [place], [place] [id number] MD Mateo Grullon MD Phone: [phone]
--- NOTE | 2024-01-05 13:55 | DI.US.S_ITS ---
PROCEDURE: US FINE NEEDLE ASPIRATION INDICATIONS: LEFT THYROID NODULE TECHNIQUE: The indications, alternatives, benefits, risks, and complications of the procedure were explained to the patient. Written informed consent was obtained and placed in the chart. The area of interest was examined sonographically and a site was chosen for ultrasound guided percutaneous sampling. The skin was prepared and draped in the usual fashion, and anesthetized with 1% lidocaine infiltrated from the skin down to the lesion. Multiple passes were then performed, with contents emptied into an appropriate pathology specimen container. A bandage was applied to the area of access at completion of the study. COMPARISON: [facility], , THYROID, 12/15/2023, 15:45. FINDINGS: Location(s) of lesion(s) sampled: Approximately 5 centimeter left thyroid nodule [place]: 25 gauge hypodermic needles. Number of passes: 6 Medications: 1% lidocaine for local anaesthesia. Complications: None. IMPRESSION: Successful ultrasound-guided left thyroid nodule fine needle aspiration, with cytology results pending. Dictated by: Can Webster M.D. on 01/05/2024 at 16:46 Approved by: Can Webster M.D. on 01/05/2024 at 16:48
== END ==
PROVIDERS: PCP Registered Nurse Diabetes Educator; Referring Provider Registered Nurse Diabetes Educator; Visit Provider Registered Nurse Diabetes Educator
DX: E04.1 Nontoxic single thyroid nodule (principal)
CPT/HCPCS: 10005

== ENCOUNTER → 2024-03-04 11:46 | Outpatient (CLI) | payer BC, SELFPAY ==
[2024-03-04 13:56] LABS: Cholesterol 234 mg/dL (140-199); HDL Cholesterol 55 mg/dL (40-60); LDL Cholesterol Calculated 158 mg/dL (<100); Triglycerides 107 mg/dL (35-150)
== END ==
LOC: LAB 11:47
PROVIDERS: PCP Registered Nurse Diabetes Educator; Referring Provider Registered Nurse Diabetes Educator; Visit Provider Registered Nurse Diabetes Educator
DX: E78.5 Hyperlipidemia, unspecified (principal)
CPT/HCPCS: 36415; 80061

== ENCOUNTER → 2024-10-11 15:32 | Outpatient (CLI) | payer BC, SELFPAY ==
--- NOTE | 2024-10-11 15:33 | DI.MG.S_ITS ---
MM screening mammo BI: 10/11/2024. BI-RADS: 1 CLINICAL: 64-year old female for bilateral screening mammogram. Tyrer-Cuzick lifetime risk of 14.6%. No personal or first-degree family history of breast cancer. Current reported family history of breast cancer: maternal aunt. PRIOR EXAMS 10/06/2023, 10/01/2022, 09/24/2021, 08/03/2020, MAMMOGRAPHY TECHNIQUE: 2D and 3D (tomosynthesis) digital mammographic views obtained, with additional images as needed for full coverage. Current study was also evaluated with a Computer Aided Detection (CAD) system. DENSITY C. The breasts are heterogeneously dense, which may obscure small masses. MAMMOGRAPHY FINDINGS Bilateral: No suspicious mass, asymmetry, microcalcification, or other abnormality seen. IMPRESSION: * No evidence of malignancy. RECOMMENDATIONS Bilateral * Annual screening mammography. OVERALL ASSESSMENT CATEGORY BI-RADS-1: Negative. The [employer] recommends annual screening mammography beginning at age 40 for women with average risk of breast cancer. ELECTRONICALLY SIGNED: Marcell Mccoy M.D. on 10/12/2024 at 08:48:34 AM PT Interpreting Station ID: [id number]
== END ==
LOC: MAMMO 15:32
PROVIDERS: PCP Registered Nurse Diabetes Educator; Referring Provider Registered Nurse Diabetes Educator; Visit Provider Registered Nurse Diabetes Educator
DX: Z12.31 Encounter for screening mammogram for malignant neoplasm of breast (principal); R92.333 Mammographic heterogeneous density, bilateral breasts; Z80.3 Family history of malignant neoplasm of breast
CPT/HCPCS: 77063; 77067

== ENCOUNTER 2024-10-14 10:31 | Day surgery (SDC) | payer BC, SELFPAY ==
[2024-10-14 11:21] VITALS: BP 138/91; PULSE 77; RESP 16; TEMP 36.7; O2SAT 100
[2024-10-14] MEDS: LACTATED RINGERS 1,000 ML 42 ML IV (11:30)
--- NOTE | 2024-10-14 12:01 | PM.HP.IH.1 ---
History of Present Illness History of Present Illness Date Patient Seen: 10/14/24 Time Patient Seen: 12:02 Chief complaint: [facility] [place] Narrative: Yeny is a 64-year-old woman here for a colonoscopy. She has had colon polyps removed in the past but her last colonoscopy was 5 years ago and no polyps were found. Father had colon cancer at 64 and at 65. She has also been treated for a papillary thyroid cancer and had some sort of a large mass removed from her mediastinum at [facility] REPLACED BY [facility] Medical History (Updated 09/12/24 @ 05:55 by [place]) History of thyroid cancer Postprocedural hypothyroidism Thyroid cancer History of obesity Dyslipidemia Colon polyps Acid reflux Prediabetes Tubular adenoma of colon (~04/2015) Family history of colon cancer Menopause (2012) 2 para 2 Hypertension (2015) Hemorrhoids (1994) Abnormal Pap smear of cervix (~1989) Depression HPV (human papilloma virus) infection (~1989) Surgical History Anesthesia Status post colonoscopy (~04/2014) Status post tonsillectomy and adenoidectomy Family History Brother Age: 64 Testicular cancer Father Hypertension Cancer Heart disease Colon cancer Mother Age: 96 Graves disease COPD (chronic obstructive pulmonary disease) Congestive heart failure Heavy smoker History of radioactive iodine thyroid ablation Grandfather Liver failure Grandmother Diabetes mellitus Grandfather No problems noted. Grandmother No problems noted. Social History household members: spouse Smoking Status: Never smoker alcohol intake: never substance use type: does not use Meds Home Medications and Allergies Home Medications ?Medication ?Instructions ?Recorded ?Confirmed ?Type diphenhydramine HCl 50 mg capsule 50 mg PO BEDTIME 08/07/22 10/14/24 History levothyroxine 125 mcg tablet mcg PO DAILY 06/09/24 09/07/24 History (Synthroid) estradiol-norethindrone acet 0.5 1 tab PO DAILY #84 tabs 09/07/24 09/07/24 Rx mg-0.1 mg tablet semaglutide (weight loss) 1 mg/0.5 1 mg (0.5 mL) SUBCUT Q7D #6 mL 09/07/24 10/14/24 Rx mL subcutaneous pen injector ([id number]) trazodone 50 mg tablet 50 mg PO BEDTIME PRN sleep #90 tabs 09/12/24 10/14/24 Rx Allergies Allergy/AdvReac Type Severity Reaction Status Date / Time zolpidem AdvReac Mild bad dreams Verified 10/14/24 11:27 Exam Vital Signs (past 8 hours): - 10/14/24 11:21 Temperature 98.1 F Pulse Rate 77 Respiratory Rate 16 Blood Pressure 138/91 H Pulse Oximetry 100 Oxygen Delivery Method Room Air Oxygen Delivery Method Room Air Const General: healthy appearing Assessment & Plan Assessment and plan (1) Family history of colon cancer: Problem details: father diagnosed in his 60's Status: Acute Plan Colonoscopy for family history of colon cancer and personal history of colon polyps. Time-Based Coding :: [TOTAL MINUTES] spent with patient and on the chart (including review of chart, obtaining history, exam, reviewing outside data, placing orders, documenting exam and treatment plan, and counseling patient) on [DATE]. 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
--- NOTE | 2024-10-14 12:34 | PM.OP.COLON ---
Operative Date/Time/Diagnoses Date of procedure: 10/14/24 Time of procedure: 12:34 Pre-op diagnosis: History of polyps Post-op diagnosis: same Procedure & Clinicians Study performed: Colonoscopy Same procedure(s) as scheduled: Yes Surgeon: Satnam Lorenzana Procedure Notes Procedure in detail: Surgeon: Satnam Lorenzana MD Anesthesia: Jm Crawford D.O. Procedure: The patient was brought to the endoscopy suite, placed in left lateral decubitus position. The patient was connected to monitoring devices. A time-out was performed. Sedation was administered. Once the patient was adequately sedated, a digital rectal exam was performed and was normal. The scope was then inserted and advanced to the cecum where the appendiceal orifice was identified and photographed. The scope was then slowly withdrawn over greater than 6 minutes. The mucosa was thoroughly inspected. There was sigmoid diverticulosis. No polyps were found. The scope was retroflexed in the rectum. Mild internal hemorrhoids were noted. The scope was straightened and removed. The patient was awakened and brought to recovery. Scope withdrawal time: 6 minutes Sedation time: 14 minutes EBL: 0 Findings: Sigmoid colon diverticulosis Post-procedure Recommendations: Colonoscopy in 5 years Disposition: PACU
[2024-10-14 12:37] VITALS: BP 116/63; PULSE 82; RESP 12; TEMP 36.4; O2SAT 98
[2024-10-14 12:43] VITALS: BP 117/76; PULSE 78; RESP 16; O2SAT 100
[2024-10-14 12:48] VITALS: BP 128/80; PULSE 74; RESP 16; O2SAT 97
== END 2024-10-14 12:55 | disposition home or self-care (01) ==
PROVIDERS: PCP Registered Nurse Diabetes Educator; Referring Provider Surgery; Visit Provider Surgery
PROC: 0DJD8ZZ Inspection of Lower Intestinal Tract, Via Natural or Artificial Opening Endoscopic (ICD-10-PCS; CPT 45378; principal; 2024-10-14 11:30)
DX: Z12.11 Encounter for screening for malignant neoplasm of colon (principal); Z80.0 Family history of malignant neoplasm of digestive organs; Z86.0100 Personal history of colon polyps, unspecified; K57.30 Diverticulosis of large intestine without perforation or abscess without bleeding; K64.8 Other hemorrhoids; Z85.850 Personal history of malignant neoplasm of thyroid
CPT/HCPCS: 45378; J2704

== ENCOUNTER → 2025-04-06 11:19 | Outpatient (CLI) | payer BC, SELFPAY ==
[2025-04-06 12:40] LABS: Hemoglobin A1C% w Est Avg Glu 5.1 % (4.0-6.0)
[2025-04-06 13:18] LABS: Alanine Aminotransferase 24 IU/L (<35); Albumin 4.5 g/dL (3.5-5.0); Albumin Globulin Ratio 1.6 (1.0-2.8); Alkaline Phosphatase 45 U/L (38-126); Blood Urea Nitrogen 14 mg/dL (7-17); Calcium 9.1 mg/dL (8.4-10.2); Carbon Dioxide 25 mmol/L (22-32); Chloride 108 mmol/L (98-107); Cholesterol 257 mg/dL (140-199); Estimated Glomerular Filt Rate > 60 mL/min (>60); Globulin 2.8 g/dL (1.7-4.1); Glucose 82 mg/dL (70-99); HDL Cholesterol 55 mg/dL (40-60); HEMOLYSIS < 15 (0-50); Potassium 5.0 mmol/L (3.4-5.1); Sodium 141 mmol/L (137-145); Total Protein 7.3 g/dL (6.3-8.2); Triglycerides 145 mg/dL (35-150)
== END ==
PROVIDERS: PCP Student in an Organized Health Care Education/Training Program; Referring Provider Student in an Organized Health Care Education/Training Program; Visit Provider Student in an Organized Health Care Education/Training Program
DX: R73.03 Prediabetes (principal); E78.00 Pure hypercholesterolemia, unspecified; E66.9 Obesity, unspecified
CPT/HCPCS: 36415; 80053; 80061; 83036